=== PATIENT | female | born 1940 | race Caucasian/White ===

== ENCOUNTER 2017-03-31 20:48 | Inpatient (IN) | payer MEDICARE, BC ==
[~2017-03-31] VITALS: Ht 157.5 cm; Wt 65.6 kg
[~2017-03-31 20:48] MED LIST: ACET500T68 PO; ALBU8.5H6 INH; ALPR0.254 PO; APIX5TAB PO; ASCO500T3 PO; AZIT250T6 PO; CETI10TA PO; CHOL4000 PO; CITA40TA12 PO; DILT240C32 PO; ESTR1TAB15 PO; FLUT1DIS5 IH; FURO80TA3 PO; IPRA3AMP IH; LEVO250P IV; LEVO500T59 PO; LEVO75TA5 PO; MECL25TA3 PO; METH40VI IVP; MONT10TA6 PO; ONDA4TAB10 PO; PANT40TA5 PO; POTA20TA12 PO; PRED-220 PO; PROM118S2 PO; ceFAZolin 1GM IVPB FOR OMNI 1 GM/50 ML BAG IV ONE
[2017-03-31] MEDS ORDERED: IPRATRPIUM/ALBUTEROL 0.5/2.5MG 3 ML NEBU. NEB ONE (22:00)
[2017-03-31] MEDS ORDERED: IV NORMAL SALINE 1000ML BAG 1,000 ML IV SCH (22:22)
[2017-03-31] MEDS ORDERED: NEOMY/BACITR/POLYMYXIN OINT PACKET. TP ONE (23:16)
--- NOTE | 2017-03-31 23:17 | PHYS DOC ---
Past Medical History Past Medical History: Asthma, COPD, Pneumonia, Other Additional Past Medical Histor: sleepapnea,autoimmune deficiency Past Surgical History: Cholecystectomy, , Knee Replacement, Other Additional Past Surgical Histo: sinus,bladder susp,breast reduction,gerd surg, cateract,nose ca remove Adult General Chief Complaint Chief Complaint: KNEE INJURY HPI HPI 76-year-old with a history of asthma and COPD on 2 L home O2 as needed now presents to the emergency department after losing her balance falling and injuring her right knee. Total right knee replacement performed in 2009 by an orthopedic surgeon who no longer lives in [facility]. Patient injured her right knee and is unable to range of motion at since the fall. She had no prodromal symptoms and no recent illness. She simply lost her balance this evening by her description. Previously patient was on eloquent is but that was discontinued 10 months ago and she is not currently on any anticoagulants. No head injury or neck pain and no other complaints Review of Systems Review of Systems Constitutional: Denies fever or chills [] Eyes: Denies change in visual acuity, redness, or eye pain [] HENT: Denies nasal congestion or sore throat [] Respiratory: Denies cough or shortness of breath [] Cardiovascular: No additional information not addressed in HPI [] GI: Denies abdominal pain, nausea, vomiting, bloody stools or diarrhea [] : Denies dysuria or hematuria [] Musculoskeletal: Denies back pain or joint pain [] Integument: Denies rash or skin lesions [] Neurologic: Denies headache, focal weakness or sensory changes [] Endocrine: Denies polyuria or polydipsia [] Current Medications Current Medications Current Medications Medications (Trade) Dose Ordered Sig/Nancy Start Time Stop Time Status Last Admin Dose Admin Albuterol/ Ipratropium (Duoneb) 3 ml 1X ONCE 03/31/17 22:00 03/31/17 22:01 DC 03/31/17 22:43 3 ML Cefazolin Sodium 50 ml @ As Directed STK-MED ONCE 03/31/17 23:19 03/31/17 23:20 DC Dexamethasone Sodium Phosphate (Decadron) 20 mg STK-MED ONCE 03/31/17 23:20 03/31/17 23:21 DC Fentanyl Citrate (Fentanyl 2ml Vial) 100 mcg STK-MED ONCE 03/31/17 23:20 03/31/17 23:21 DC Lidocaine HCl (Lidocaine Pf 2% Vial) 5 ml STK-MED ONCE 03/31/17 23:20 03/31/17 23:21 DC Neomycin/ Polymyxin/ Bacitracin (Triple Antibiotic Ointment) 1 pkt STK-MED ONCE 03/31/17 23:16 03/31/17 23:17 DC Ondansetron HCl (Zofran) 4 mg STK-MED ONCE 03/31/17 23:20 03/31/17 23:21 DC Propofol 20 ml @ As Directed STK-MED ONCE 03/31/17 23:20 03/31/17 23:21 DC Sevoflurane (Ultane) 15 ml STK-MED ONCE 03/31/17 23:20 03/31/17 23:21 DC Sodium Chloride 1,000 ml @ 100 mls/hr Q10H 03/31/17 22:22 04/01/17 08:21 03/31/17 22:55 100 MLS/HR Allergies Allergies Allergies Coded Allergies Type Severity Reaction Last Updated Verified Tetracyclines Allergy Intermediate Hives 01/24/15 Yes adhesive Allergy Intermediate Rash 01/24/15 Yes cefotaxime Allergy Intermediate Hives 01/24/15 Yes clindamycin Allergy Intermediate Hives 01/24/15 Yes vancomycin Allergy Intermediate Hives 01/23/15 Yes Physical Exam Physical Exam Constitutional: Well developed, well nourished, no acute distress, non-toxic appearance. [] HENT: Normocephalic, atraumatic, bilateral external ears normal, oropharynx moist, no oral exudates, nose normal. [] Eyes: PERRLA, EOMI, conjunctiva normal, no discharge. [] Neck: Normal range of motion, no tenderness, supple, no stridor. [] Cardiovascular:Heart rate regular rhythm, no murmur [] Lungs & Thorax: Bilateral breath sounds clear to auscultation [] Abdomen: Bowel sounds normal, soft, no tenderness, no masses, no pulsatile masses. [] Skin: Warm, dry, no erythema, no rash. [] Back: No tenderness, no CVA tenderness. [] Extremities: Right lower extremity with significant soft tissue swelling at the knee with bony tenderness. Soft compartments of the thigh and lower extremity. Patient unable to range of motion knee secondary to pain. Comfortable at rest. Neurovascularly intact distally. Extremities otherwise with No tenderness, no cyanosis, no clubbing, ROM intact, no edema. [] Neurologic: Alert and oriented X 3, normal motor function, normal sensory function, no focal deficits noted. [] Psychologic: Affect normal, judgement normal, mood normal. [] Current Patient Data Vital Signs Vital Signs Date Time Temp Pulse Resp B/P (MAP) Pulse Ox O2 Delivery O2 Flow Rate FiO2 03/31/17 21:20 Nasal Cannula 1.0 03/31/17 20:48 98.0 26 137/64 (88) 89 98.0 EKG EKG [] Radiology/Procedures Radiology/Procedures Right knee x-ray interpreted by me. Comminuted displaced periprosthetic distal femur fracture. Chest x-ray chronic changes no acute disease interpreted by me. [] Course & Med Decision Making Course & Med Decision Making Pertinent Labs and Imaging studies reviewed. (See chart for details) Signs and symptoms consistent with right knee fracture confirmed by x-ray with comminuted displaced periprosthetic fracture of the distal femur. Patient neurovascularly intact with soft compartments. She is comfortable at rest. No skin tenting or ecchymosis. Case discussed with Dr. Fernandes orthopedics on-call, he is aware of history and findings and agrees with orthopedic consultation. He will take the patient to the operating room this evening for external fixation. Case discussed with Dr. Flores on-call for the hospitalist service. Dr. campos where the history and findings except patient for inpatient admission to a [facility] bed. She is hemodynamically stable and will be kept nothing by mouth with adequate pain control. [] Dragon Disclaimer Dragon Disclaimer This electronic medical record was generated, in whole or in part, using a voice recognition dictation system. Departure Departure Impression: Primary Impression: Closed fracture of right proximal humerus Disposition: ADMITTED INPATIENT Admitting Physician: Darling Rodriguez Condition: STABLE Referrals: STEPHEN FLORES MD (PCP) ARYAN RODRIGUEZ MD Mar 31, 2017 23:17
[2017-03-31] MEDS ORDERED: SEVOFLURANE 16 TO 30 MINUTES. IH ONE (23:20)
[2017-03-31] MEDS ORDERED: ONDANSETRON PF 4 MG/2 ML VIAL. ONE (23:20)
[2017-03-31] MEDS ORDERED: LIDOCAINE 2% PF Vial for OR 5 ML VIAL. ONE (23:20)
[2017-03-31] MEDS ORDERED: DEXAMETHASONE SOD PHOS 20 MG/5 ML VIAL. ONE (23:20)
[2017-03-31] MEDS ORDERED: fentaNYL PF VIAL 100 MCG/2 ML VIAL ONE (23:20)
[2017-03-31] MEDS ORDERED: PROPOFOL 20 ML IV ONE (23:20)
[2017-03-31] MEDS ORDERED: 0.9 % SOD CHL for STERILE FIELD 10 ML DISP.SYRIN. ONE (23:34)
[2017-03-31 23:45] LABS: INR 1.2 (0.8-1.1)
[2017-04-01] VITALS (12 sets, daily range): BP systolic 97–124; BP diastolic 39–62
[2017-04-01 00:06] LABS: BASO # 0.1 x10^3/uL (0.0-0.2); BASO % 1 % (0-3); EOS % 22 % (0-3); HEMATOCRIT 31.6 % (36.0-47.0); HEMOGLOBIN 10.4 g/dL (12.0-15.5); LYMPH # 1.4 x10^3/uL (1.0-4.8); LYMPH % 9 % (24-48); MEAN CORPUSCULAR HEMOGLOBIN 29 pg (25-35); MEAN CORPUSCULAR HGB CONC 33 g/dL (31-37); MEAN CORPUSCULAR VOLUME 90 fL (79-100); MONO % 9 % (0-9); NEUT % 59 % (31-73); PLATELET COUNT 111 x10^3/uL (140-400); RED BLOOD COUNT 3.53 x10^6/uL (3.50-5.40); RED CELL DISTRIBUTION WIDTH 14.5 % (11.5-14.5); WHITE BLOOD COUNT 15.5 x10^3/uL (4.0-11.0)
[2017-04-01 00:19] LABS: CALCIUM 7.8 mg/dL (8.5-10.1); CREATININE 1.7 mg/dL (0.6-1.0); GFR 29.3; POTASSIUM 3.8 mmol/L (3.5-5.1)
[2017-04-01] MEDS ORDERED: LIDOCAINE 1% 20 ML VIAL. ONE (00:21)
[2017-04-01] MEDS ORDERED: BUPIVACAINE 0.5% 50 ML VIAL. ONE (00:21)
--- NOTE | 2017-04-01 00:32 | PDOC2 ---
CONSULT Date of Consult Date of Consult DATE: 04/01/17 TIME: 00:26 Reason for Consult Reason for Consult: R distal femur fx Referring Physician Referring Physician: Maximino Identification/Chief Complaint Chief Complaint R knee pain Problems: Source Source: Patient History of Present Illness Reason for Visit: Was arising from a seated position this evening and her leg gave out. No preceding symptoms. Pain at right knee, worse with movement, radiates proximally and distally. Denies pain elsewhere. Knee had been doing well until this event. Past Medical History Cardiovascular: No pertinent hx Pulmonary: COPD GI: GERD Heme/Onc: No pertinent hx Psych: Depression ENT: Sincusitis Endocrine: Hypothyroidism Past Surgical History Past Surgical History breast reduction ,sinus surgery Past Surgical History: Cataract Removal, Total knee replacement Family History Family History: Hypertension Social History No ALCOHOL: none Drugs: None Current Problem List Problem List Problems Medical Problems: (1) Closed fracture of right proximal humerus Status: Acute Current Medications Current Medications Current Medications Albuterol/ Ipratropium (Duoneb) 3 ml 1X ONCE NEB Last administered on 22:43; Start 03/31/17 at 22:00; Stop 03/31/17 at 22:01; Status DC Sodium Chloride 1,000 ml @ 100 mls/hr Q10H IV Last administered on 03/31/17 22 :55; Start 03/31/17 at 22:22; Stop 03/31/17 at 23:30; Status DC Neomycin/ Polymyxin/ Bacitracin (Triple Antibiotic Ointment) 1 pkt STK-MED ONCE TP ; Start 03/31/17 at 23:16; Stop 03/31/17 at 23:17; Status DC Cefazolin Sodium 50 ml @ As Directed STK-MED ONCE IV ; Start 03/31/17 at 23:19; Stop 03/31/17 at 23:20; Status DC Dexamethasone Sodium Phosphate (Decadron) 20 mg STK-MED ONCE .ROUTE ; Start 03/31 at 23:20; Stop 03/31/17 at 23:21; Status DC Ondansetron HCl (Zofran) 4 mg STK-MED ONCE .ROUTE ; Start 03/31/17 at 23:20; Stop 03/31/17 at 23:21; Status DC Propofol 20 ml @ As Directed STK-MED ONCE IV ; Start 03/31/17 at 23:20; Stop 03/31 at 23:21; Status DC Lidocaine HCl (Lidocaine Pf 2% Vial) 5 ml STK-MED ONCE .ROUTE ; Start 03/31/17 at 23:20; Stop 03/31/17 at 23:21; Status DC Fentanyl Citrate (Fentanyl 2ml Vial) 100 mcg STK-MED ONCE .ROUTE ; Start at 23:20; Stop 03/31/17 at 23:21; Status DC Sevoflurane (Ultane) 15 ml STK-MED ONCE IH ; Start 03/31/17 at 23:20; Stop at 23:21; Status DC Sodium Chloride (NORMAL SALINE FLUSH for STERILE FIELD) 10 ml STK-MED ONCE .ROUTE ; Start 03/31/17 at 23:34; Stop 03/31/17 at 23:35; Status DC Bupivacaine HCl (Marcaine 0.5%) 50 ml STK-MED ONCE .ROUTE ; Start 04/01/17 at 00: 21; Stop 04/01/17 at 00:22; Status DC Lidocaine HCl 20 ml STK-MED ONCE .ROUTE ; Start 04/01/17 at 00:21; Stop 04/01/17 at 00:22; Status DC Active Scripts Active Levaquin (Levofloxacin) 500 Mg Tablet 1 Tab PO DAILY Reported Prednisone 10 Mg Tablet 10 Mg PO DAILY 04/22/15 start 40 mg x 4 days 04/26/15 start 30 mg x 4 days 04/30/15 start 20 mg x 4 days 05/04/15 start 10 mg x 4 days 05/08/15 start 5 mg x 4 days Last Dose 05/11/15 then stop Promethazine-Codeine Syrup (Promethazine Hcl/Codeine) 118 Ml Syrup 5 Ml PO Q4- 6HRS Furosemide 80 Mg Tablet 1 Tab PO DAILY Zofran Odt (Ondansetron) 4 Mg Tab.rapdis 4 Mg PO BID PRN Meclizine Hcl 25 Mg Tablet 1 Tab PO PRN TID Albuterol Sulfate Hfa Inhaler (Albuterol Sulfate) 8.5 Gm Hfa.aer.ad 2 Puff INH Q4HRS PRN Potassium Chloride 20 Meq Tab.er.prt 1 Tab PO BID All Day Allergy Relief (Cetirizine Hcl) 10 Mg Tablet 10 Mg PO QHS Promethazine-Codeine Syrup (Promethazine Hcl/Codeine) 118 Ml Syrup 5 Ml PO Q4HRS Pantoprazole Sodium 40 Mg Tablet.dr 40 Mg PO BIDAC Singulair Tablet (Montelukast Sodium) 10 Mg Tablet 10 Mg PO HS Levothyroxine Sodium 75 Mcg Tablet 1 Tab PO DAILY Iprat-Albut 0.5-3(2.5) Mg/3 Ml (Ipratropium/Albuterol Sulfate) 3 Ml Ampul.neb 3 Ml IH QID Advair 500-50 Diskus (Fluticasone/Salmeterol) 1 Each Disk.w.dev 1 Puff IH BID Estradiol 1 Mg Tablet 1 Tab PO DAILY Diltiazem 24HR Cd (Diltiazem Hcl) 240 Mg Cap.er.24h 240 Mg PO DAILY Vitamin D3 (Cholecalciferol (Vitamin D3)) 4,000 Unit Capsule 4,000 Unit PO DAILY Ascorbic Acid 500 Mg Tablet 500 Mg PO DAILY Eliquis (Apixaban) 5 Mg Tablet 5 Mg PO BID Alprazolam 0.25 Mg Tablet 0.25 Mg PO PRN TID PRN Acetaminophen 500 Mg Tablet 1 Tab PO Q4HRS Allergies Allergies: Coded Allergies: Tetracyclines (Verified Allergy, Intermediate, Hives, 01/24/15) adhesive (Verified Allergy, Intermediate, Rash, 01/24/15) cefotaxime (Verified Allergy, Intermediate, Hives, 01/24/15) clindamycin (Verified Allergy, Intermediate, Hives, 01/24/15) vancomycin (Verified Allergy, Intermediate, Hives, 01/23/15) ROS General: No: Chills, Night Sweats, Fatigue, Malaise, Appetite, Other PSYCHOLOGICAL ROS: YES: Depression Eyes: No Blurry vision, No Decreased vision, No Double vision, No Dry eyes, No Excessive tearing, No Eye Pain, No Itchy Eyes, No Loss of vision, No Photophobia , No Scotomata, No Uses contacts, No Uses glasses, No Other HEENT: YES: Nasal congestion ALLERGY AND IMMUNOLOGY: No: Hives, Insect Bite Sensitivity, Itchy/Watery Eyes, Nasal Congestion, Post Nasal Drip, Seasonal Allergies, Other Hematological and Lymphatic: No: Bleeding Problems, Blood Clots, Blood Transfusions, Brusing, Night Sweats, Pallor, Swollen Lymph Nodes, Other ENDOCRINE: No: Breast Changes, Galactorrhea, Hair Pattern Changes, Hot Flashes , Malaise/lethargy, Mood Swings, Palpitations, Polydipsia/polyuria, Skin Changes , Temperature Intolerance, Unexpected Weight Changes, Other Respiratory: YES: Cough Cardiovascular: No Chest Pain, No Palpitations, No Orthopnea, No Paroxysmal Noc. Dyspnea, No Edema, No Lt Headedness, No Other Gastrointestinal: No Nausea, No Vomiting, No Abdominal Pain, No Diarrhea, No Constipation, No Melena, No Hematochezia, No Other Musculoskeletal: Yes Joint Pain Physical Exam General: Alert, Oriented X3 HEENT: Atraumatic, EOMI Lungs: Clear to auscultation, Normal air movement Heart: Regular rate Abdomen: Normal bowel sounds, Soft Extremities: No clubbing, No edema Skin: No rashes, No breakdown Neuro: Strength at 5/5 X4 ext, Sensation intact Psych/Mental Status: Mental status NL MUSCULOSKELETAL: Other (gross deformity at right knee, large effusion present. skin intact around knee. able to wiggle toes, toes have good cap refill. SITLT RLE) Vitals VITALS Vital Signs Date Time Temp Pulse Resp B/P (MAP) Pulse Ox O2 Delivery O2 Flow Rate FiO2 03/31/17 23:42 99.0 77 16 115/49 96 Nasal Cannula 2 99.0 Labs Labs Laboratory Tests Test 03/31/17 23:00 03/31/17 23:40 Prothrombin Time 14.0 SEC (11.7-14.0) Prothromb Time International Ratio 1.2 (0.8-1.1) Activated Partial Thromboplast Time 24 SEC (24-38) White Blood Count 15.5 x10^3/uL (4.0-11.0) Red Blood Count 3.53 x10^6/uL (3.50-5.40) Hemoglobin 10.4 g/dL (12.0-15.5) Hematocrit 31.6 % (36.0-47.0) Mean Corpuscular Volume 90 fL (79-100) Mean Corpuscular Hemoglobin 29 pg (25-35) Mean Corpuscular Hemoglobin Concent 33 g/dL (31-37) Red Cell Distribution Width 14.5 % (11.5-14.5) Platelet Count 111 x10^3/uL (140-400) Neutrophils (%) (Auto) 59 % (31-73) Lymphocytes (%) (Auto) 9 % (24-48) Monocytes (%) (Auto) 9 % (0-9) Eosinophils (%) (Auto) 22 % (0-3) Basophils (%) (Auto) 1 % (0-3) Neutrophils # (Auto) 9.1 x10^3uL (1.8-7.7) Lymphocytes # (Auto) 1.4 x10^3/uL (1.0-4.8) Monocytes # (Auto) 1.4 x10^3/uL (0.0-1.1) Eosinophils # (Auto) 3.5 x10^3/uL (0.0-0.7) Basophils # (Auto) 0.1 x10^3/uL (0.0-0.2) Sodium Level 143 mmol/L (136-145) Potassium Level 3.8 mmol/L (3.5-5.1) Chloride Level 106 mmol/L (98-107) Carbon Dioxide Level 28 mmol/L (21-32) Anion Gap 9 (6-14) Blood Urea Nitrogen 21 mg/dL (7-20) Creatinine 1.7 mg/dL (0.6-1.0) Estimated GFR (Cockcroft-Gault) 29.3 Glucose Level 98 mg/dL (70-99) Calcium Level 7.8 mg/dL (8.5-10.1) Laboratory Tests Test 03/31/17 23:00 03/31/17 23:40 Prothrombin Time 14.0 SEC (11.7-14.0) Prothromb Time International Ratio 1.2 (0.8-1.1) Activated Partial Thromboplast Time 24 SEC (24-38) White Blood Count 15.5 x10^3/uL (4.0-11.0) Red Blood Count 3.53 x10^6/uL (3.50-5.40) Hemoglobin 10.4 g/dL (12.0-15.5) Hematocrit 31.6 % (36.0-47.0) Mean Corpuscular Volume 90 fL (79-100) Mean Corpuscular Hemoglobin 29 pg (25-35) Mean Corpuscular Hemoglobin Concent 33 g/dL (31-37) Red Cell Distribution Width 14.5 % (11.5-14.5) Platelet Count 111 x10^3/uL (140-400) Neutrophils (%) (Auto) 59 % (31-73) Lymphocytes (%) (Auto) 9 % (24-48) Monocytes (%) (Auto) 9 % (0-9) Eosinophils (%) (Auto) 22 % (0-3) Basophils (%) (Auto) 1 % (0-3) Neutrophils # (Auto) 9.1 x10^3uL (1.8-7.7) Lymphocytes # (Auto) 1.4 x10^3/uL (1.0-4.8) Monocytes # (Auto) 1.4 x10^3/uL (0.0-1.1) Eosinophils # (Auto) 3.5 x10^3/uL (0.0-0.7) Basophils # (Auto) 0.1 x10^3/uL (0.0-0.2) Sodium Level 143 mmol/L (136-145) Potassium Level 3.8 mmol/L (3.5-5.1) Chloride Level 106 mmol/L (98-107) Carbon Dioxide Level 28 mmol/L (21-32) Anion Gap 9 (6-14) Blood Urea Nitrogen 21 mg/dL (7-20) Creatinine 1.7 mg/dL (0.6-1.0) Estimated GFR (Cockcroft-Gault) 29.3 Glucose Level 98 mg/dL (70-99) Calcium Level 7.8 mg/dL (8.5-10.1) Images Images Xrays interpreted by myself. Castillo and Nephmua TKA in place, comminuted displaced distal femoral periprosthetic fx present Assessment/Plan Assessment/Plan Discussed proceeding with ex-fix for better alignment, help protect soft tissues and likely better comfort. Risks, benefits and alternatives discussed with patient and family. OR CHER Robison II, MD Apr 01, 2017 00:32
[2017-04-01] MEDS ORDERED: ENOXAPARIN 40 MG/0.4 ML SYRINGE. SQ ONE (01:00)
[2017-04-01] MEDS ORDERED: ePHEDrine PF IN SALINE 50 MG/5 ML DISP.SYRIN IV ONE (01:01)
[2017-04-01] MEDS ORDERED: PHENYLEPHRINE 10 MG/ML VIAL. ONE (01:22)
--- NOTE | 2017-04-01 01:31 | PDOC4 ---
Operative Note Operative Note Date of surgery 04/01/2017 Surgeon Joselo Echeverria MD Preoperative diagnosis displaced and comminuted closed right distal femur periprosthetic fracture postoperative diagnosis same Procedure performed closed reduction and placement of uniplanar external fixation Anesthesia: Gen. Blood loss 5 mL's Components inserted: [employer]illo [employer]hew external fixator Complications: None Chirag Wright for procedure Xin is a very pleasant 76-year-old female who had a fall this evening while rising from seated position and suffered the above injury. Please see my consult note for full details. The risks, benefits, and alternatives were discussed with her and she elected to proceed. Description of procedure: The patient was greeted in the preoperative holding area where the correct extremity was marked and verified. She was taken to the operative suite and antibiotics were started once in the OR. After this, she had successful induction of general anesthesia and we secured her to the bed with all pressure points padded. The right lower extremity was prepped and draped in her usual sterile fashion and we conducted our preoperative timeout. I then palpated for the femur well proximal to the knee and made 2 stab incisions using my pin-to-bar connector as a guide. I bluntly dissected down to bone with hemostat and then introduced the soft tissue protector and inserted the threaded pin under fluoroscopic guidance. I then repeated this for the second pin at the site. After this had recommended attention to the distal tibia regular palpated for the central portion of the bone and incised skin in accordance with my pin-to-bar connector and then spread down to bone with a hemostat. I then placed 2 more ex Fix pins under fluoroscopic guidance. I then secured the pin-to-bar connectors of both of these sites 3 finger breaths above the skin. After this I attached the adapters for the bar-to-bar connector and secured these. I then attached 2 bars at both of these sites and secured these. I then placed a bar-to-bar connector were these met over her knee and tightened one side. I then brought in C-arm and pulled traction and some slight flexion and I was happy with the fracture alignment and therefore my district administrative assistant tightened the clamp while I held traction. I then took images again and was happy with the fracture reduction and hardware position. After this the leg was cleansed and dried and sterile dressing and loose Nazario wrap was applied. She tolerated surgery well. No complications. Attending conclusion of the surgery she is awake from anesthesia and transferred gently supine to the recovery room cart and taken to the PACU in stable and x-ray condition. Postop plan is readmitted to the floor of hospitalist service. She will receive DVT and antibiotic prophylaxis. Nonweightbearing right lower extremity. We will obtain a CAT scan to help guide our operative plan. JOSELO ECHEVERRIA II, MD Apr 01, 2017 01:31
[2017-04-01] MEDS ORDERED: fentaNYL PF VIAL 100 MCG/2 ML VIAL ONE (01:36)
[2017-04-01] MEDS: fentaNYL PF VIAL 100 MCG/2 ML VIAL IV PRN ×4 (01:39→02:22)
[2017-04-01] MEDS ORDERED: IV RINGERS,LACTATED 1000ML 1,000 ML IV SCH (01:40)
[2017-04-01] MEDS ORDERED: HYDROmorphone 2 MG/ML VIAL IV PRN (01:45)
[2017-04-01] MEDS ORDERED: LIDOCAINE 1% 1 ML SYRINGE. ID PRN (01:45)
[2017-04-01] MEDS ORDERED: fentaNYL PF VIAL 100 MCG/2 ML VIAL IV PRN ×2 (01:45→09:00)
[2017-04-01] MEDS ORDERED: PROCHLORPERAZINE 10 MG/2 ML VIAL. IV PRN (01:45)
[2017-04-01] MEDS ORDERED: MORPHINE SULFATE 2 MG/ML DISP.SYRIN. IV PRN ×2 (01:45→22:15)
--- NOTE | 2017-04-01 03:22 | ACF ---
Admission Forms Criteria MUSCULOSKELETAL DISEASE GRG Clinical Indications for Admission to Inpatient Care (Place 'X' for any and all applicable criteria): Hospital admission is needed for appropriate care of the patient because of 1 or more of the following: [X]I. Fracture, dislocation, or other musculoskeletal injury requiring inpatient care(medical) as indicated by 1 or more of the following(4)(5)(6)(7) [ ]a) Vertebral fracture requiring observation for instability or neurologic compromise (8) [ ]b) Compartment syndrome (proven or cannot be ruled out during observation level of care) (9) [ ]c) Limb-threatening injury [ ]d) Major injury requiring inpatient stabilization such as traction initiation or external fixation before internal fixation or closure of complex or open fracture [X]e) Major injury requiring inpatient treatment after emergency or observation level care (as appropriate) [ ]f) Severe pain requiring acute inpatient management [ ]g) Injury with suspicion of abuse or neglect (eg., child, dependent elderly) [ ]II. Newly diagnosed or suspected bone, joint, or orthopedic device infection (e.g., osteomyelitis, septic arthritis) needing 1 or more of the following(1)(2)(3) [ ]a) IV antibiotics that cannot be initiated in other than inpatient setting (e.g., patient too unstable or home infusion not available) [ ]b) Device removal or replacement [ ]c) Bone or soft tissue debridement [ ]d) Joint drainage (drain placement or repetitive aspirations) [ ]III. Severe rheumatologic disease (e.g., systemic lupus erythematosus, rheumatoid arthritis) with complications or comorbidities (Also use Optimal Recovery Care Criteria or General Recovery Criteria as appropriate on the basis of predominant condition), including 1 or more of the following( 10)(11)(12)(13) [ ]a) Severe infection (e.g., INSTANT PRINT OPERATOR infection, sepsis) (14) [ ]b) Respiratory complications, including 1 or more of the following : [ ]i) Pleural effusion with respiratory compromise [ ]ii) Pulmonary hypertension with congestive failure [ ]iii) Respiratory failure [ ]iv) Pulmonary hemorrhage (15) [ ]c) Hematologic disease, including 1 or more of the following: [ ]i) Coagulopathy with bleeding [ ]ii) Thrombosis with hypercoagulable state [ ]iii) Thrombotic thrombocytopenic purpura [ ]d) Cerebritis with seizures, psychosis, or other severe abnormalities [ ]e) Vertebral destruction with monitoring needed for cervical myelopathy& possible respiratory compromise [ ]f) Exacerbation that requires inpatient treatment (e.g., intravenous immunosuppression) (16) [ ]g) Acute renal failure [ ]h) Cerebritis with seizures, psychosis, Altered mental status, or other neurologic abnormalities [ ]i) Pericardial effusion with tamponade [ ]j) Vertebral destruction, with monitoring needed for cervical myelopathy and possible respiratory compromise [ ]IV. Severe vasculitis with complications or comorbidities (Also use Optimal Recovery Care Criteria General Recovery Criteria as appropriate on the basis of predominant condition), including 1 or more of the following(11)(12)(17)(18)(19)(20) [ ]a) Exacerbation that requires inpatient treatment (e.g., intravenous immunosuppression) (19)(21) [ ]b) Pulmonary hemorrhage (15) [ ]c) INSTANT PRINT OPERATOR vasculitis with seizures, psychosis, Altered mental status that is severe or persistent, or other severe abnormalities (22) [ ]d) Cerebral infarction [ ]e) Gastrointestinal ischemia [ ]f) Gangrene or threatened amputation [ ]g) Renal failure (16) [ ]h) Other significant complications of vasculitis ( eg., tissue or organ ischemia, organ dysfunction ) [ ]V. Severe myopathy as indicated by 1 or more of the following (28)(29) [ ]a) New onset of airway compromise or inability to swallow [ ]b) Respiratory deterioration with observation needed for impending respiratory failure [ ]c) Exacerbation that requires inpatient treatment (e.g., intravenous immunosuppression) [ ]. Severe crystal gout (arthropathy) indicated by 1 or more of the following (23)(24) [ ]a) Severe pain requiring acute inpatient management [ ]b) Exacerbation that requires inpatient treatment (e.g., intravenous treatment) [ ]VII.Rhabdomyolysis and 1 or more of the following (25)(26)(27) [ ]a) Acute renal failure [ ]b) Need for intravenous hydration after emergency or observation level care (as appropriate) [ ]c) Inability to maintain oral hydration [ ]d) Change in mental status [ ]e) Electrolyte abnormality that remains after emergency or observation level care (as appropriate) [ ]VIII Post amputation complication, as indicated by ANY ONE of the following [ ]a) Infection [ ]b) Dehiscence [ ]c) Myodesis failure [ ]IX. Severe pain requiring acute inpatient management due to musculoskeletal condition [ ]X. Musculoskeletal Disease and ALL of the following: [ ]a) Symptom or finding for which emergency and observation care have failed or are not considered appropriate (Use General Criteria: Observation Care as appropriate) [ ]b) Presence of ANY ONE of the following [ ]i) A General Admission Criteria [ ]ii) A Pediatric General Admission Criteria The original [facility] [employer] content created by [facility] has been revised. The portions of the content which have been revised are identified through the use of italic text or in bold, and [facility] has neither reviewed nor approved the modified material. All other unmodified content is copyright [facility]. Please see references footnoted in the original [facility] edition 2016 Admission Criteria Met?: Yes GRACIA MONTELONGO Apr 01, 2017 03:22
[2017-04-01 03:37] LABS: % EOS 12 % (0-5); PLT ESTIMATE DECREASED (ADEQUATE)
[2017-04-01] MEDS: HYDROcodone/APAP 5/325MG 1 TAB TABLET PO PRN ×3 (04:14→13:29)
--- NOTE | 2017-04-01 06:17 | EKG ---
[facility] [address] [place] [address] Test Date: 2017-03-31 Test Time: 23:16:43 Pat Name: CLEVELAND REAL Department: Room: Gender: F Account Executive Key Accounts: : 1940 Requested By: ARYAN RODRIGUEZ Order Number: [id number] Reading MD: Measurements Intervals [place] Rate: 78 P: 0 TX: 170 QRS: -17 QRSD: 76 T: 27 QT: 398 QTc: 457 Interpretive Statements SINUS RHYTHM ATRIAL PREMATURE COMPLEX(ES) LEFTWARD AXIS LOW LIMB LEAD VOLTAGE RI6.01 Unconfirmed report No previous ECG available for comparison
--- NOTE | 2017-04-01 08:26 | RAD ---
Portable chest, 03/31/2017: History: Cough Comparison is made to a study from 07/25/2015. A right Port-A-Cath remains in place extending into the superior vena cava. The heart size and pulmonary vascularity are normal. There is mild left parahilar opacity the right lung is clear. There is no evidence of pleural fluid. There is a moderate thoracolumbar scoliosis with associated degenerative change. IMPRESSION: Mild left parahilar opacities compatible with atelectasis and/or pneumonitis. Radiographic follow-up is suggested to exclude an underlying neoplasm.
--- NOTE | 2017-04-01 08:45 | RAD ---
Right knee, 2 views, 03/31/2017: History: Fall, knee pain Comparison is made to a study from 06/10/2009. A total knee prosthesis is in place. There is a new comminuted fracture of the distal femur along the superior margin of the femoral component of the knee prosthesis. There is considerable posterior and moderate medial displacement and angulation of the distal fracture fragments. The proximal tibia and fibula appear intact. There is extensive associated soft tissue swelling. IMPRESSION: Comminuted, displaced and angulated fracture of the distal right femur along the superior margin of the femoral component of the right knee prosthesis.
--- NOTE | 2017-04-01 10:07 | RAD ---
CT of the right knee, 04/01/2017: History: Acute fracture Multidetector CT imaging was performed without contrast. A total knee prosthesis is in place. There is an external fixation device also in place with 2 pins extending into the mid to distal femoral shaft. The distal aspect of this fixation device is only visible on the software engineer intern image with a pin extending into the proximal tibia. Artifacts arising from the fixation device and the knee prosthesis degrade image quality. There is a comminuted fracture of the distal right femur at the level of the superior aspect of the femoral component of the knee prosthesis. Compared to yesterday's radiographs, there is moderate residual posterior displacement of the distal fracture fragments as best seen on the sagittal images. The anterior lip of the prosthesis is embedded into the medullary canal of the distal femoral stump Previously seen medial displacement and angulation have been reduced. The proximal tibia and fibula are intact. There is mild streaky subcutaneous edema. Scattered arterial calcifications are present. IMPRESSION: Improved alignment at the site of the distal femoral fracture, although there is moderate residual posterior displacement of the distal fracture fragments as described above. PQRS Compliance Statement: One or more of the following individualized dose reduction techniques were utilized for this examination: 1. Automated exposure control 2. Adjustment of the mA and/or kV according to patient size 3. Use of iterative reconstruction technique
[2017-04-01] MEDS: oxyCODONE/APAP 5/325 1 TAB TABLET PO PRN ×2 (11:32→20:29)
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
[2017-04-01] MEDS: IV NORMAL SALINE 1000ML BAG 1,000 ML IV SCH ×2 (13:30→22:15)
[2017-04-01] MEDS: ENOXAPARIN 40 MG/0.4 ML SYRINGE. SQ SCH (13:30)
[2017-04-01] MEDS: SENNOSIDES/DOCUSATE 8.6/50MG TABLET. PO PRN (20:29)
--- NOTE | 2017-04-01 20:34 | PDOC ---
ORTHO PROGRESS NOTES Subjective Pain is a little bit better today. No new complaints Vitals Vital Signs Date Time Temp Pulse Resp B/P (MAP) Pulse Ox O2 Delivery O2 Flow Rate FiO2 04/01/17 20:30 20 94 Nasal Cannula 2.0 04/01/17 19:00 98.3 79 118/46 (70) 98.3 Labs Laboratory Tests Test 03/31/17 23:00 03/31/17 23:40 Prothrombin Time 14.0 SEC (11.7-14.0) Prothromb Time International Ratio 1.2 (0.8-1.1) Activated Partial Thromboplast Time 24 SEC (24-38) White Blood Count 15.5 x10^3/uL (4.0-11.0) Red Blood Count 3.53 x10^6/uL (3.50-5.40) Hemoglobin 10.4 g/dL (12.0-15.5) Hematocrit 31.6 % (36.0-47.0) Mean Corpuscular Volume 90 fL (79-100) Mean Corpuscular Hemoglobin 29 pg (25-35) Mean Corpuscular Hemoglobin Concent 33 g/dL (31-37) Red Cell Distribution Width 14.5 % (11.5-14.5) Platelet Count 111 x10^3/uL (140-400) Neutrophils (%) (Auto) 59 % (31-73) Lymphocytes (%) (Auto) 9 % (24-48) Monocytes (%) (Auto) 9 % (0-9) Eosinophils (%) (Auto) 22 % (0-3) Basophils (%) (Auto) 1 % (0-3) Neutrophils # (Auto) 9.1 x10^3uL (1.8-7.7) Lymphocytes # (Auto) 1.4 x10^3/uL (1.0-4.8) Monocytes # (Auto) 1.4 x10^3/uL (0.0-1.1) Eosinophils # (Auto) 3.5 x10^3/uL (0.0-0.7) Basophils # (Auto) 0.1 x10^3/uL (0.0-0.2) Segmented Neutrophils % 67 % (35-66) Band Neutrophils % 1 % (0-9) Lymphocytes % 14 % (24-48) Monocytes % 6 % (0-10) Eosinophils % 12 % (0-5) Platelet Estimate Decreased (ADEQUATE) Giant Platelets Occ Sodium Level 143 mmol/L (136-145) Potassium Level 3.8 mmol/L (3.5-5.1) Chloride Level 106 mmol/L (98-107) Carbon Dioxide Level 28 mmol/L (21-32) Anion Gap 9 (6-14) Blood Urea Nitrogen 21 mg/dL (7-20) Creatinine 1.7 mg/dL (0.6-1.0) Estimated GFR (Cockcroft-Gault) 29.3 Glucose Level 98 mg/dL (70-99) Calcium Level 7.8 mg/dL (8.5-10.1) Laboratory Tests Test 03/31/17 23:00 03/31/17 23:40 Prothrombin Time 14.0 SEC (11.7-14.0) Prothromb Time International Ratio 1.2 (0.8-1.1) Activated Partial Thromboplast Time 24 SEC (24-38) White Blood Count 15.5 x10^3/uL (4.0-11.0) Red Blood Count 3.53 x10^6/uL (3.50-5.40) Hemoglobin 10.4 g/dL (12.0-15.5) Hematocrit 31.6 % (36.0-47.0) Mean Corpuscular Volume 90 fL (79-100) Mean Corpuscular Hemoglobin 29 pg (25-35) Mean Corpuscular Hemoglobin Concent 33 g/dL (31-37) Red Cell Distribution Width 14.5 % (11.5-14.5) Platelet Count 111 x10^3/uL (140-400) Neutrophils (%) (Auto) 59 % (31-73) Lymphocytes (%) (Auto) 9 % (24-48) Monocytes (%) (Auto) 9 % (0-9) Eosinophils (%) (Auto) 22 % (0-3) Basophils (%) (Auto) 1 % (0-3) Neutrophils # (Auto) 9.1 x10^3uL (1.8-7.7) Lymphocytes # (Auto) 1.4 x10^3/uL (1.0-4.8) Monocytes # (Auto) 1.4 x10^3/uL (0.0-1.1) Eosinophils # (Auto) 3.5 x10^3/uL (0.0-0.7) Basophils # (Auto) 0.1 x10^3/uL (0.0-0.2) Segmented Neutrophils % 67 % (35-66) Band Neutrophils % 1 % (0-9) Lymphocytes % 14 % (24-48) Monocytes % 6 % (0-10) Eosinophils % 12 % (0-5) Platelet Estimate Decreased (ADEQUATE) Giant Platelets Occ Sodium Level 143 mmol/L (136-145) Potassium Level 3.8 mmol/L (3.5-5.1) Chloride Level 106 mmol/L (98-107) Carbon Dioxide Level 28 mmol/L (21-32) Anion Gap 9 (6-14) Blood Urea Nitrogen 21 mg/dL (7-20) Creatinine 1.7 mg/dL (0.6-1.0) Estimated GFR (Cockcroft-Gault) 29.3 Glucose Level 98 mg/dL (70-99) Calcium Level 7.8 mg/dL (8.5-10.1) Notes She is awake and alert and sitting in bed. The pin sites at the ex fix are clean and dry. She can wiggle her toes. Assessment and Plan Postop day 1 right knee spanning ex-fix for comminuted distal femoral periprosthetic fracture. She will I think benefit from a distal femoral reconstruction which is not a surgery that anyone is able to offer her here. I did speak with the surgeon at another hospital and he agreed to accept her. Plans a been made for transfer to [facility] Tuesday. CHER ECHEVERRIA II, MD Apr 01, 2017 20:34
[2017-04-01] MEDS: IBUPROFEN 400 MG TABLET. PO SCH (22:14)
[2017-04-02] VITALS (7 sets, daily range): BP systolic 119–156; BP diastolic 53–76
[2017-04-02] MEDS: IBUPROFEN 400 MG TABLET. PO SCH ×4 (05:26→15:18)
[2017-04-02] MEDS: oxyCODONE/APAP 5/325 1 TAB TABLET PO PRN ×2 (05:26→16:45)
[2017-04-02 06:37] LABS: BASO % 0 % (0-3); EOS % 0 % (0-3); HEMATOCRIT 23.9 % (36.0-47.0); HEMOGLOBIN 8.1 g/dL (12.0-15.5); LYMPH # 0.6 x10^3/uL (1.0-4.8); LYMPH % 6 % (24-48); MEAN CORPUSCULAR HEMOGLOBIN 30 pg (25-35); MEAN CORPUSCULAR HGB CONC 34 g/dL (31-37); MEAN CORPUSCULAR VOLUME 87 fL (79-100); MONO % 11 % (0-9); NEUT % 83 % (31-73); PLATELET COUNT 119 x10^3/uL (140-400); RED BLOOD COUNT 2.73 x10^6/uL (3.50-5.40); RED CELL DISTRIBUTION WIDTH 13.9 % (11.5-14.5); WHITE BLOOD COUNT 9.4 x10^3/uL (4.0-11.0)
[2017-04-02 06:51] LABS: CALCIUM 7.9 mg/dL (8.5-10.1); CREATININE 1.4 mg/dL (0.6-1.0); GFR 36.7; POTASSIUM 4.7 mmol/L (3.5-5.1)
[2017-04-02] MEDS ORDERED: LIDO700A39 TP (10:16)
[2017-04-02] MEDS: ENOXAPARIN 40 MG/0.4 ML SYRINGE. SQ SCH (12:01)
[2017-04-02] MEDS: IV NORMAL SALINE 1000ML BAG 1,000 ML IV SCH ×2 (12:02→20:44)
--- NOTE | 2017-04-02 12:14 | PDOC ---
PROGRESS NOTES Chief Complaint Chief Complaint 1.R distal femur fracture, closed 2. COPD 3. GERD 4. Hypothyroidism 5. Depression 6. Chronic sinusitis History of Present Illness History of Present Illness pt is doing well this morning, her surgery went well yesterday and there are now external pins on her R leg, she states her pain is well controlled and denies any complaints Vitals Vitals Vital Signs Date Time Temp Pulse Resp B/P (MAP) Pulse Ox O2 Delivery O2 Flow Rate FiO2 04/02/17 10:59 98.4 78 16 130/60 (83) 96 Room Air 98.4 04/02/17 08:00 2.0 Physical Exam General: Alert, Oriented X3, Cooperative, No acute distress Heart: Regular rate Lungs: Clear Abdomen: Normal bowel sounds, Soft, No tenderness, No hepatosplenomegaly, No masses Extremities: No clubbing, No cyanosis, Other (dressing/cast RLE) Skin: No rashes, No breakdown, No significant lesion Labs LABS Laboratory Tests Test 04/02/17 05:30 White Blood Count 9.4 x10^3/uL (4.0-11.0) Red Blood Count 2.73 x10^6/uL (3.50-5.40) Hemoglobin 8.1 g/dL (12.0-15.5) Hematocrit 23.9 % (36.0-47.0) Mean Corpuscular Volume 87 fL (79-100) Mean Corpuscular Hemoglobin 30 pg (25-35) Mean Corpuscular Hemoglobin Concent 34 g/dL (31-37) Red Cell Distribution Width 13.9 % (11.5-14.5) Platelet Count 119 x10^3/uL (140-400) Neutrophils (%) (Auto) 83 % (31-73) Lymphocytes (%) (Auto) 6 % (24-48) Monocytes (%) (Auto) 11 % (0-9) Eosinophils (%) (Auto) 0 % (0-3) Basophils (%) (Auto) 0 % (0-3) Neutrophils # (Auto) 7.8 x10^3uL (1.8-7.7) Lymphocytes # (Auto) 0.6 x10^3/uL (1.0-4.8) Monocytes # (Auto) 1.0 x10^3/uL (0.0-1.1) Eosinophils # (Auto) 0.0 x10^3/uL (0.0-0.7) Basophils # (Auto) 0.0 x10^3/uL (0.0-0.2) Sodium Level 143 mmol/L (136-145) Potassium Level 4.7 mmol/L (3.5-5.1) Chloride Level 109 mmol/L (98-107) Carbon Dioxide Level 29 mmol/L (21-32) Anion Gap 5 (6-14) Blood Urea Nitrogen 26 mg/dL (7-20) Creatinine 1.4 mg/dL (0.6-1.0) Estimated GFR (Cockcroft-Gault) 36.7 Glucose Level 130 mg/dL (70-99) Calcium Level 7.9 mg/dL (8.5-10.1) Review of Systems Review of Systems denies nausea, vomiting, or LYNCH Assessment and Plan Assessmemt and Plan Assessment 1.R distal femur fracture, closed 2. COPD 3. GERD 4. Hypothyroidism 5. Depression 6. Chronic sinusitis Plan 1. S/p ex-fix for comminuted distal femoral periprosthetic fracture 2. Transfer to [facility] tuesday for distal femoral reconstruction 3. Lovenox for DVT prophylaxis 4. Appreciate subspecialty input 5. Continue home meds 6. Discussed plan of care with nursing 7. PT/OT 8. Recheck CBC and BMP tomorrow 9. Reviewed imagin. Zofran prn for nausea 11. Continue pain management with morphine, percocet, and lortab Problems: Comment Review of Relevant I have reviewed the following items will (where applicable) has been applied. Labs Laboratory Tests Test 03/31/17 23:00 03/31/17 23:40 04/01/17 10:00 04/02/17 05:30 Prothrombin Time 14.0 SEC (11.7-14.0) Prothromb Time International Ratio 1.2 (0.8-1.1) Activated Partial Thromboplast Time 24 SEC (24-38) White Blood Count 15.5 x10^3/uL (4.0-11.0) 9.4 x10^3/uL (4.0-11.0) Red Blood Count 3.53 x10^6/uL (3.50-5.40) 2.73 x10^6/uL (3.50-5.40) Hemoglobin 10.4 g/dL (12.0-15.5) 8.1 g/dL (12.0-15.5) Hematocrit 31.6 % (36.0-47.0) 23.9 % (36.0-47.0) Mean Corpuscular Volume 90 fL (79-100) 87 fL (79-100) Mean Corpuscular Hemoglobin 29 pg (25-35) 30 pg (25-35) Mean Corpuscular Hemoglobin Concent 33 g/dL (31-37) 34 g/dL (31-37) Red Cell Distribution Width 14.5 % (11.5-14.5) 13.9 % (11.5-14.5) Platelet Count 111 x10^3/uL (140-400) 119 x10^3/uL (140-400) Neutrophils (%) (Auto) 59 % (31-73) 83 % (31-73) Lymphocytes (%) (Auto) 9 % (24-48) 6 % (24-48) Monocytes (%) (Auto) 9 % (0-9) 11 % (0-9) Eosinophils (%) (Auto) 22 % (0-3) 0 % (0-3) Basophils (%) (Auto) 1 % (0-3) 0 % (0-3) Neutrophils # (Auto) 9.1 x10^3uL (1.8-7.7) 7.8 x10^3uL (1.8-7.7) Lymphocytes # (Auto) 1.4 x10^3/uL (1.0-4.8) 0.6 x10^3/uL (1.0-4.8) Monocytes # (Auto) 1.4 x10^3/uL (0.0-1.1) 1.0 x10^3/uL (0.0-1.1) Eosinophils # (Auto) 3.5 x10^3/uL (0.0-0.7) 0.0 x10^3/uL (0.0-0.7) Basophils # (Auto) 0.1 x10^3/uL (0.0-0.2) 0.0 x10^3/uL (0.0-0.2) Segmented Neutrophils % 67 % (35-66) Band Neutrophils % 1 % (0-9) Lymphocytes % 14 % (24-48) Monocytes % 6 % (0-10) Eosinophils % 12 % (0-5) Platelet Estimate Decreased (ADEQUATE) Giant Platelets Occ Sodium Level 143 mmol/L (136-145) 143 mmol/L (136-145) Potassium Level 3.8 mmol/L (3.5-5.1) 4.7 mmol/L (3.5-5.1) Chloride Level 106 mmol/L (98-107) 109 mmol/L (98-107) Carbon Dioxide Level 28 mmol/L (21-32) 29 mmol/L (21-32) Anion Gap 9 (6-14) 5 (6-14) Blood Urea Nitrogen 21 mg/dL (7-20) 26 mg/dL (7-20) Creatinine 1.7 mg/dL (0.6-1.0) 1.4 mg/dL (0.6-1.0) Estimated GFR (Cockcroft-Gault) 29.3 36.7 Glucose Level 98 mg/dL (70-99) 130 mg/dL (70-99) Calcium Level 7.8 mg/dL (8.5-10.1) 7.9 mg/dL (8.5-10.1) 25-Hydroxy Vitamin D Total 52.1 ng/mL (30.0-100.0) Laboratory Tests Test 04/02/17 05:30 White Blood Count 9.4 x10^3/uL (4.0-11.0) Red Blood Count 2.73 x10^6/uL (3.50-5.40) Hemoglobin 8.1 g/dL (12.0-15.5) Hematocrit 23.9 % (36.0-47.0) Mean Corpuscular Volume 87 fL (79-100) Mean Corpuscular Hemoglobin 30 pg (25-35) Mean Corpuscular Hemoglobin Concent 34 g/dL (31-37) Red Cell Distribution Width 13.9 % (11.5-14.5) Platelet Count 119 x10^3/uL (140-400) Neutrophils (%) (Auto) 83 % (31-73) Lymphocytes (%) (Auto) 6 % (24-48) Monocytes (%) (Auto) 11 % (0-9) Eosinophils (%) (Auto) 0 % (0-3) Basophils (%) (Auto) 0 % (0-3) Neutrophils # (Auto) 7.8 x10^3uL (1.8-7.7) Lymphocytes # (Auto) 0.6 x10^3/uL (1.0-4.8) Monocytes # (Auto) 1.0 x10^3/uL (0.0-1.1) Eosinophils # (Auto) 0.0 x10^3/uL (0.0-0.7) Basophils # (Auto) 0.0 x10^3/uL (0.0-0.2) Sodium Level 143 mmol/L (136-145) Potassium Level 4.7 mmol/L (3.5-5.1) Chloride Level 109 mmol/L (98-107) Carbon Dioxide Level 29 mmol/L (21-32) Anion Gap 5 (6-14) Blood Urea Nitrogen 26 mg/dL (7-20) Creatinine 1.4 mg/dL (0.6-1.0) Estimated GFR (Cockcroft-Gault) 36.7 Glucose Level 130 mg/dL (70-99) Calcium Level 7.9 mg/dL (8.5-10.1) Medications Current Medications Albuterol/ Ipratropium (Duoneb) 3 ml 1X ONCE NEB Last administered on 22:43; Start 03/31/17 at 22:00; Stop 03/31/17 at 22:01; Status DC Sodium Chloride 1,000 ml @ 100 mls/hr Q10H IV Last administered on 03/31/17 22 :55; Start 03/31/17 at 22:22; Stop 04/01/17 at 08:21; Status DC Neomycin/ Polymyxin/ Bacitracin (Triple Antibiotic Ointment) 1 pkt STK-MED ONCE TP ; Start 03/31/17 at 23:16; Stop 03/31/17 at 23:17; Status DC Cefazolin Sodium 50 ml @ As Directed STK-MED ONCE IV ; Start 03/31/17 at 23:19; Stop 03/31/17 at 23:20; Status Cancel Dexamethasone Sodium Phosphate (Decadron) 20 mg STK-MED ONCE .ROUTE ; Start 03/31 at 23:20; Stop 03/31/17 at 23:21; Status DC Ondansetron HCl (Zofran) 4 mg STK-MED ONCE .ROUTE ; Start 03/31/17 at 23:20; Stop 03/31/17 at 23:21; Status DC Propofol 20 ml @ As Directed STK-MED ONCE IV ; Start 03/31/17 at 23:20; Stop 03/31 at 23:21; Status DC Lidocaine HCl (Lidocaine Pf 2% Vial) 5 ml STK-MED ONCE .ROUTE ; Start 03/31/17 at 23:20; Stop 03/31/17 at 23:21; Status DC Fentanyl Citrate (Fentanyl 2ml Vial) 100 mcg STK-MED ONCE .ROUTE ; Start at 23:20; Stop 03/31/17 at 23:21; Status DC Sevoflurane (Ultane) 15 ml STK-MED ONCE IH ; Start 03/31/17 at 23:20; Stop at 23:21; Status DC Sodium Chloride (NORMAL SALINE FLUSH for STERILE FIELD) 10 ml STK-MED ONCE .ROUTE ; Start 03/31/17 at 23:34; Stop 03/31/17 at 23:35; Status DC Bupivacaine HCl (Marcaine 0.5%) 50 ml STK-MED ONCE .ROUTE ; Start 04/01/17 at 00: 21; Stop 04/01/17 at 00:22; Status DC Lidocaine HCl 20 ml STK-MED ONCE .ROUTE ; Start 04/01/17 at 00:21; Stop 04/01/17 at 00:22; Status DC Cefazolin Sodium 1 gm/Sodium Chloride 50 ml @ 100 mls/hr Q8H IV ; Start at 00:45; Stop 04/02/17 at 09:14; Status UNV Acetaminophen/ Hydrocodone Bitart (Lortab 5/325) 1 tab PRN Q4HRS PRN PO MODERATE PAIN Last administered on 04/01/17 13:29; Start 04/01/17 at 00:45 Senna/Docusate Sodium (Senna Plus) 1 tab PRN BID PRN PO CONSTIPATION Last administered on 04/01/17 20:29; Start 04/01/17 at 00:45 Enoxaparin Sodium (Lovenox 40mg Syringe) 40 mg 1X ONCE SQ Last administered on 04/01/17t 04:12; Start 04/01/17 at 01:00; Stop 04/01/17 at 01:01; Status DC Ephedrine Sulfate 50 mg STK-MED ONCE IV ; Start 04/01/17 at 01:01; Stop 04/01/17 at 01:02; Status DC Phenylephrine HCl (Timmy-Synephrine Inj) 10 mg STK-MED ONCE .ROUTE ; Start at 01:22; Stop 04/01/17 at 01:23; Status DC Fentanyl Citrate (Fentanyl 2ml Vial) 100 mcg STK-MED ONCE .ROUTE ; Start at 01:36; Stop 04/01/17 at 01:37; Status DC Fentanyl Citrate (Fentanyl 2ml Vial) 25 mcg PRN Q5MIN PRN IV MILD PAIN Last administered on 04/01/17t 02:22; Start 04/01/17 at 01:45; Stop 04/01/17 at 22:05; Status DC Fentanyl Citrate (Fentanyl 2ml Vial) 50 mcg PRN Q5MIN PRN IV MODERATE PAIN; Start 04/01/17 at 01:45; Stop 04/01/17 at 22:05; Status DC Morphine Sulfate 1 mg PRN Q10MIN PRN IV SEVERE PAIN; Start 04/01/17 at 01:45; Stop 04/01/17 at 22:05; Status DC Ringer's Solution 1,000 ml @ 30 mls/hr Q24H IV ; Start 04/01/17 at 01:40; Stop 04/01/17 at 11:36; Status DC Lidocaine HCl 2 ml PRN 1X PRN ID PRIOR TO IV START; Start 04/01/17 at 01:45; Stop 04/01/17 at 22:05; Status DC Hydromorphone HCl (Dilaudid) 0.5 mg PRN Q10MIN PRN IV SEV PAIN, Second choice; Start 04/01/17 at 01:45; Stop 04/01/17 at 22:05; Status DC Prochlorperazine Edisylate (Compazine) 5 mg PACU PRN PRN IV NAUSEA, MRX1; Start 04/01/17 at 01:45; Stop 04/01/17 at 22:05; Status DC Oxycodone/ Acetaminophen (Percocet 5/325) 1 tab PRN Q4HRS PRN PO SEVERE PAIN Last administered on 04/02/17 05:26; Start 04/01/17 at 09:00 Fentanyl Citrate (Fentanyl 2ml Vial) 25 mcg PRN Q2HR PRN IV PAIN Last administered on 04/01/17 20:30; Start 04/01/17 at 09:00; Stop 04/01/17 at 22:05; Status DC Cefazolin Sodium (Ancef 1gm Ivpb For Omni) 1 gm STK-MED ONCE IV ; Start 03/31/17 at 07:22; Stop 04/01/17 at 09:01; Status DC Cefazolin Sodium (Ancef 1gm Ivpb For Omni) 1 gm STK-MED ONCE IV ; Start 03/31/17 at 12:00; Stop 04/01/17 at 09:09; Status DC Sodium Chloride 1,000 ml @ 80 mls/hr [id number] IV Last administered on 04/02/17 12:02; Start 04/01/17 at 11:45 Enoxaparin Sodium (Lovenox 40mg Syringe) 40 mg Q24H SQ Last administered on 04/02 12:01; Start 04/01/17 at 13:00 Levofloxacin (Levaquin) 500 mg 1X ONCE PO ; Start 04/01/17 at 06:00; Stop at 21:22; Status DC Levofloxacin (Levaquin) 250 mg DAILY06 PO ; Start 04/03/17 at 06:00 Morphine Sulfate 2 mg PRN Q2HR PRN IV SEVERE PAIN Last administered on 22:14; Start 04/01/17 at 22:15 Ibuprofen (Motrin) 400 mg Q4HRS PO Last administered on 04/02/17 12:01; Start 04/01/17 at 22:15 Levofloxacin (Levaquin) 500 mg 1X ONCE PO Last administered on 04/02/17 05:25 ; Start 04/02/17 at 06:00; Stop 04/02/17 at 06:01; Status DC Active Scripts Active Levaquin (Levofloxacin) 500 Mg Tablet 1 Tab PO DAILY Reported Lidocaine 1 Each Adh..patch 1 Each TP DAILY Prednisone 10 Mg Tablet 10 Mg PO DAILY 04/22/15 start 40 mg x 4 days 04/26/15 start 30 mg x 4 days 04/30/15 start 20 mg x 4 days 05/04/15 start 10 mg x 4 days 05/08/15 start 5 mg x 4 days Last Dose 05/11/15 then stop Promethazine-Codeine Syrup (Promethazine Hcl/Codeine) 118 Ml Syrup 5 Ml PO Q4- 6HRS Furosemide 80 Mg Tablet 1 Tab PO DAILY Zofran Odt (Ondansetron) 4 Mg Tab.rapdis 4 Mg PO BID PRN Meclizine Hcl 25 Mg Tablet 1 Tab PO PRN TID Albuterol Sulfate Hfa Inhaler (Albuterol Sulfate) 8.5 Gm Hfa.aer.ad 2 Puff INH Q4HRS PRN Potassium Chloride 20 Meq Tab.er.prt 1 Tab PO BID All Day Allergy Relief (Cetirizine Hcl) 10 Mg Tablet 10 Mg PO QHS Promethazine-Codeine Syrup (Promethazine Hcl/Codeine) 118 Ml Syrup 5 Ml PO Q4HRS Pantoprazole Sodium 40 Mg Tablet.dr 40 Mg PO BIDAC Singulair Tablet (Montelukast Sodium) 10 Mg Tablet 10 Mg PO HS Levothyroxine Sodium 75 Mcg Tablet 1 Tab PO DAILY Duoneb 0.5-3(2.5) Mg/3 Ml (Albuterol/Ipratropium) 3 Ml Ampul.neb 3 Ml IH QID Advair 500-50 Diskus (Fluticasone/Salmeterol) 1 Each Disk.w.dev 1 Puff IH BID Estradiol 1 Mg Tablet 1 Tab PO DAILY Diltiazem 24HR Cd (Diltiazem Hcl) 240 Mg Cap.er.24h 240 Mg PO DAILY Vitamin D3 (Cholecalciferol (Vitamin D3)) 4,000 Unit Capsule 4,000 Unit PO DAILY Ascorbic Acid 500 Mg Tablet 500 Mg PO DAILY Eliquis (Apixaban) 5 Mg Tablet 5 Mg PO BID Alprazolam 0.25 Mg Tablet 0.25 Mg PO PRN TID PRN Acetaminophen 500 Mg Tablet 1 Tab PO Q4HRS Vitals/I & O Vital Sign - Last 24 Hours 04/01/17 04/01/17 04/01/17 04/01/17 15:04 19:00 20:23 20:29 Temp 97.9 98.3 97.9 98.3 Pulse 18 79 Resp 16 20 B/P (MAP) 122/56 (78) 118/46 (70) Pulse Ox 88 94 94 O2 Delivery Room Air Nasal Cannula Nasal Cannula Nasal Cannula O2 Flow Rate 2.0 2.0 2.0 04/01/17 04/01/17 04/01/17 04/01/17 20:30 21:00 22:14 22:44 Resp 20 20 20 20 Pulse Ox 94 94 94 94 O2 Delivery Nasal Cannula Nasal Cannula Nasal Cannula Nasal Cannula O2 Flow Rate 2.0 2.0 2.0 2.5 04/01/17 04/02/17 04/02/17 04/02/17 22:55 02:58 02:59 05:26 Temp 98.2 97.8 97.8 98.2 97.8 97.8 Pulse 77 78 78 Resp 16 16 16 20 B/P (MAP) 124/62 (82) 119/58 (78) 119/58 (78) Pulse Ox 94 95 95 95 O2 Delivery Nasal Cannula Nasal Cannula Nasal Cannula Nasal Cannula O2 Flow Rate 2.5 2.5 2.5 2.5 04/02/17 04/02/17 04/02/17 04/02/17 06:26 07:00 08:00 10:59 Temp 98.1 98.4 98.1 98.4 Pulse 76 78 Resp 20 16 16 B/P (MAP) 121/53 (75) 130/60 (83) Pulse Ox 95 96 96 O2 Delivery Nasal Cannula Room Air Nasal Cannula Room Air O2 Flow Rate 2.5 2.0 Intake and Output 04/01/17 04/01/17 04/02/17 15:00 23:00 07:00 Intake Total 458 ml Output Total 1100 ml Balance -642 ml TIMOTHY VELAZQUEZ III DO Apr 02, 2017 12:14
--- NOTE | 2017-04-02 15:32 | PDOC2 ---
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 ZITHROMAX ON DAILY BASIS PT LAST WEEK WITH INCREASE SOA ON PRED ON HOME NOW COUGH UP CLEAR NO HEMOPTYSIS NO FEVER Past Medical History Cardiovascular: No pertinent hx Pulmonary: Asthma, Other (RUCCURENT BRONCHITS) GI: GERD Heme/Onc: No pertinent hx Psych: Depression ENT: Sincusitis Endocrine: Hypothyroidism Past Surgical History Past Surgical History: Cataract Removal, Total knee replacement Family History Family History: Hypertension Social History No ALCOHOL: none Drugs: None Current Problem List Problem List Problems Medical Problems: (1) Closed fracture of right proximal humerus Status: Acute Current Medications Current Medications Current Medications Albuterol/ Ipratropium (Duoneb) 3 ml 1X ONCE NEB Last administered on 22:43; Start 03/31/17 at 22:00; Stop 03/31/17 at 22:01; Status DC Sodium Chloride 1,000 ml @ 100 mls/hr Q10H IV Last administered on 03/31/17 22 :55; Start 03/31/17 at 22:22; Stop 04/01/17 at 08:21; Status DC Neomycin/ Polymyxin/ Bacitracin (Triple Antibiotic Ointment) 1 pkt STK-MED ONCE TP ; Start 03/31/17 at 23:16; Stop 03/31/17 at 23:17; Status DC Cefazolin Sodium 50 ml @ As Directed STK-MED ONCE IV ; Start 03/31/17 at 23:19; Stop 03/31/17 at 23:20; Status Cancel Dexamethasone Sodium Phosphate (Decadron) 20 mg STK-MED ONCE .ROUTE ; Start 03/31 at 23:20; Stop 03/31/17 at 23:21; Status DC Ondansetron HCl (Zofran) 4 mg STK-MED ONCE .ROUTE ; Start 03/31/17 at 23:20; Stop 03/31/17 at 23:21; Status DC Propofol 20 ml @ As Directed STK-MED ONCE IV ; Start 03/31/17 at 23:20; Stop 03/31 at 23:21; Status DC Lidocaine HCl (Lidocaine Pf 2% Vial) 5 ml STK-MED ONCE .ROUTE ; Start 03/31/17 at 23:20; Stop 03/31/17 at 23:21; Status DC Fentanyl Citrate (Fentanyl 2ml Vial) 100 mcg STK-MED ONCE .ROUTE ; Start at 23:20; Stop 03/31/17 at 23:21; Status DC Sevoflurane (Ultane) 15 ml STK-MED ONCE IH ; Start 03/31/17 at 23:20; Stop at 23:21; Status DC Sodium Chloride (NORMAL SALINE FLUSH for STERILE FIELD) 10 ml STK-MED ONCE .ROUTE ; Start 03/31/17 at 23:34; Stop 03/31/17 at 23:35; Status DC Bupivacaine HCl (Marcaine 0.5%) 50 ml STK-MED ONCE .ROUTE ; Start 04/01/17 at 00: 21; Stop 04/01/17 at 00:22; Status DC Lidocaine HCl 20 ml STK-MED ONCE .ROUTE ; Start 04/01/17 at 00:21; Stop 04/01/17 at 00:22; Status DC Cefazolin Sodium 1 gm/Sodium Chloride 50 ml @ 100 mls/hr Q8H IV ; Start at 00:45; Stop 04/02/17 at 09:14; Status UNV Acetaminophen/ Hydrocodone Bitart (Lortab 5/325) 1 tab PRN Q4HRS PRN PO MODERATE PAIN Last administered on 04/01/17 13:29; Start 04/01/17 at 00:45 Senna/Docusate Sodium (Senna Plus) 1 tab PRN BID PRN PO CONSTIPATION Last administered on 04/01/17 20:29; Start 04/01/17 at 00:45 Enoxaparin Sodium (Lovenox 40mg Syringe) 40 mg 1X ONCE SQ Last administered on 04/01/17 04:12; Start 04/01/17 at 01:00; Stop 04/01/17 at 01:01; Status DC Ephedrine Sulfate 50 mg STK-MED ONCE IV ; Start 04/01/17 at 01:01; Stop 04/01/17 at 01:02; Status DC Phenylephrine HCl (Timmy-Synephrine Inj) 10 mg STK-MED ONCE .ROUTE ; Start at 01:22; Stop 04/01/17 at 01:23; Status DC Fentanyl Citrate (Fentanyl 2ml Vial) 100 mcg STK-MED ONCE .ROUTE ; Start at 01:36; Stop 04/01/17 at 01:37; Status DC Fentanyl Citrate (Fentanyl 2ml Vial) 25 mcg PRN Q5MIN PRN IV MILD PAIN Last administered on 04/01/17 02:22; Start 04/01/17 at 01:45; Stop 04/01/17 at 22:05; Status DC Fentanyl Citrate (Fentanyl 2ml Vial) 50 mcg PRN Q5MIN PRN IV MODERATE PAIN; Start 04/01/17 at 01:45; Stop 04/01/17 at 22:05; Status DC Morphine Sulfate 1 mg PRN Q10MIN PRN IV SEVERE PAIN; Start 04/01/17 at 01:45; Stop 04/01/17 at 22:05; Status DC Ringer's Solution 1,000 ml @ 30 mls/hr Q24H IV ; Start 04/01/17 at 01:40; Stop 04/01/17 at 11:36; Status DC Lidocaine HCl 2 ml PRN 1X PRN ID PRIOR TO IV START; Start 04/01/17 at 01:45; Stop 04/01/17 at 22:05; Status DC Hydromorphone HCl (Dilaudid) 0.5 mg PRN Q10MIN PRN IV SEV PAIN, Second choice; Start 04/01/17 at 01:45; Stop 04/01/17 at 22:05; Status DC Prochlorperazine Edisylate (Compazine) 5 mg PACU PRN PRN IV NAUSEA, MRX1; Start 04/01/17 at 01:45; Stop 04/01/17 at 22:05; Status DC Oxycodone/ Acetaminophen (Percocet 5/325) 1 tab PRN Q4HRS PRN PO SEVERE PAIN Last administered on 04/02/17 05:26; Start 04/01/17 at 09:00 Fentanyl Citrate (Fentanyl 2ml Vial) 25 mcg PRN Q2HR PRN IV PAIN Last administered on 04/01/17 20:30; Start 04/01/17 at 09:00; Stop 04/01/17 at 22:05; Status DC Cefazolin Sodium (Ancef 1gm Ivpb For Omni) 1 gm STK-MED ONCE IV ; Start 03/31/17 at 07:22; Stop 04/01/17 at 09:01; Status DC Cefazolin Sodium (Ancef 1gm Ivpb For Omni) 1 gm STK-MED ONCE IV ; Start 03/31/17 at 12:00; Stop 04/01/17 at 09:09; Status DC Sodium Chloride 1,000 ml @ 80 mls/hr [id number] IV Last administered on 04/02/17 12:02; Start 04/01/17 at 11:45 Enoxaparin Sodium (Lovenox 40mg Syringe) 40 mg Q24H SQ Last administered on 04/02 12:01; Start 04/01/17 at 13:00 Levofloxacin (Levaquin) 500 mg 1X ONCE PO ; Start 04/01/17 at 06:00; Stop at 21:22; Status DC Levofloxacin (Levaquin) 250 mg DAILY06 PO ; Start 04/03/17 at 06:00; Stop at 06:01 Morphine Sulfate 2 mg PRN Q2HR PRN IV SEVERE PAIN Last administered on 22:14; Start 04/01/17 at 22:15 Ibuprofen (Motrin) 400 mg Q4HRS PO Last administered on 04/02/17 15:18; Start 04/01/17 at 22:15 Levofloxacin (Levaquin) 500 mg 1X ONCE PO Last administered on 04/02/17 05:25 ; Start 04/02/17 at 06:00; Stop 04/02/17 at 06:01; Status DC Active Scripts Active Reported Lidocaine 1 Each Adh..patch 1 Each TP DAILY Prednisone 10 Mg Tablet 10 Mg PO DAILY 04/22/15 start 40 mg x 4 days 04/26/15 start 30 mg x 4 days 04/30/15 start 20 mg x 4 days 05/04/15 start 10 mg x 4 days 05/08/15 start 5 mg x 4 days Last Dose 05/11/15 then stop Promethazine-Codeine Syrup (Promethazine Hcl/Codeine) 118 Ml Syrup 5 Ml PO Q4- 6HRS Furosemide 80 Mg Tablet 1 Tab PO DAILY Zofran Odt (Ondansetron) 4 Mg Tab.rapdis 4 Mg PO BID PRN Meclizine Hcl 25 Mg Tablet 1 Tab PO PRN TID Albuterol Sulfate Hfa Inhaler (Albuterol Sulfate) 8.5 Gm Hfa.aer.ad 2 Puff INH Q4HRS PRN Potassium Chloride 20 Meq Tab.er.prt 1 Tab PO BID All Day Allergy Relief (Cetirizine Hcl) 10 Mg Tablet 10 Mg PO QHS Promethazine-Codeine Syrup (Promethazine Hcl/Codeine) 118 Ml Syrup 5 Ml PO Q4HRS Pantoprazole Sodium 40 Mg Tablet.dr 40 Mg PO BIDAC Singulair Tablet (Montelukast Sodium) 10 Mg Tablet 10 Mg PO HS Levothyroxine Sodium 75 Mcg Tablet 1 Tab PO DAILY Duoneb 0.5-3(2.5) Mg/3 Ml (Albuterol/Ipratropium) 3 Ml Ampul.neb 3 Ml IH QID Advair 500-50 Diskus (Fluticasone/Salmeterol) 1 Each Disk.w.dev 1 Puff IH BID Estradiol 1 Mg Tablet 1 Tab PO DAILY Diltiazem 24HR Cd (Diltiazem Hcl) 240 Mg Cap.er.24h 240 Mg PO DAILY Vitamin D3 (Cholecalciferol (Vitamin D3)) 4,000 Unit Capsule 4,000 Unit PO DAILY Ascorbic Acid 500 Mg Tablet 500 Mg PO DAILY Eliquis (Apixaban) 5 Mg Tablet 5 Mg PO BID Alprazolam 0.25 Mg Tablet 0.25 Mg PO PRN TID PRN Acetaminophen 500 Mg Tablet 1 Tab PO Q4HRS Allergies Allergies: Coded Allergies: Tetracyclines (Verified Allergy, Intermediate, Hives, 01/24/15) adhesive (Verified Allergy, Intermediate, Rash, 01/24/15) cefotaxime (Verified Allergy, Intermediate, Hives, 01/24/15) clindamycin (Verified Allergy, Intermediate, Hives, 01/24/15) vancomycin (Verified Allergy, Intermediate, Hives, 01/23/15) ROS ALLERGY AND IMMUNOLOGY: YES: Itchy/Watery Eyes, Seasonal Allergies Respiratory: YES: Cough, Orthopnea, Shortness of breath, SOB with excertion, Sputum Changes, Tachypnea, Wheezing Physical Exam General: Alert, Oriented X3, Cooperative, No acute distress HEENT: PERRLA, Mucous membr. moist/pink Lungs: Other (BILATERAL WHEEZE) Heart: Regular rate, Normal S1, Normal S2, No murmurs Abdomen: Normal bowel sounds, Soft, No tenderness, No hepatosplenomegaly, No masses Extremities: Other (S/P SURGERY RLL) Skin: No rashes, No breakdown Psych/Mental Status: Mental status NL, Mood NL Vitals VITALS Vital Signs Date Time Temp Pulse Resp B/P (MAP) Pulse Ox O2 Delivery O2 Flow Rate FiO2 04/02/17 15:00 98.1 82 16 136/68 (90) 96 Room Air 98.1 04/02/17 08:00 2.0 Labs Labs Laboratory Tests Test 03/31/17 23:00 03/31/17 23:40 04/01/17 10:00 04/02/17 05:30 Prothrombin Time 14.0 SEC (11.7-14.0) Prothromb Time International Ratio 1.2 (0.8-1.1) Activated Partial Thromboplast Time 24 SEC (24-38) White Blood Count 15.5 x10^3/uL (4.0-11.0) 9.4 x10^3/uL (4.0-11.0) Red Blood Count 3.53 x10^6/uL (3.50-5.40) 2.73 x10^6/uL (3.50-5.40) Hemoglobin 10.4 g/dL (12.0-15.5) 8.1 g/dL (12.0-15.5) Hematocrit 31.6 % (36.0-47.0) 23.9 % (36.0-47.0) Mean Corpuscular Volume 90 fL (79-100) 87 fL (79-100) Mean Corpuscular Hemoglobin 29 pg (25-35) 30 pg (25-35) Mean Corpuscular Hemoglobin Concent 33 g/dL (31-37) 34 g/dL (31-37) Red Cell Distribution Width 14.5 % (11.5-14.5) 13.9 % (11.5-14.5) Platelet Count 111 x10^3/uL (140-400) 119 x10^3/uL (140-400) Neutrophils (%) (Auto) 59 % (31-73) 83 % (31-73) Lymphocytes (%) (Auto) 9 % (24-48) 6 % (24-48) Monocytes (%) (Auto) 9 % (0-9) 11 % (0-9) Eosinophils (%) (Auto) 22 % (0-3) 0 % (0-3) Basophils (%) (Auto) 1 % (0-3) 0 % (0-3) Neutrophils # (Auto) 9.1 x10^3uL (1.8-7.7) 7.8 x10^3uL (1.8-7.7) Lymphocytes # (Auto) 1.4 x10^3/uL (1.0-4.8) 0.6 x10^3/uL (1.0-4.8) Monocytes # (Auto) 1.4 x10^3/uL (0.0-1.1) 1.0 x10^3/uL (0.0-1.1) Eosinophils # (Auto) 3.5 x10^3/uL (0.0-0.7) 0.0 x10^3/uL (0.0-0.7) Basophils # (Auto) 0.1 x10^3/uL (0.0-0.2) 0.0 x10^3/uL (0.0-0.2) Segmented Neutrophils % 67 % (35-66) Band Neutrophils % 1 % (0-9) Lymphocytes % 14 % (24-48) Monocytes % 6 % (0-10) Eosinophils % 12 % (0-5) Platelet Estimate Decreased (ADEQUATE) Giant Platelets Occ Sodium Level 143 mmol/L (136-145) 143 mmol/L (136-145) Potassium Level 3.8 mmol/L (3.5-5.1) 4.7 mmol/L (3.5-5.1) Chloride Level 106 mmol/L (98-107) 109 mmol/L (98-107) Carbon Dioxide Level 28 mmol/L (21-32) 29 mmol/L (21-32) Anion Gap 9 (6-14) 5 (6-14) Blood Urea Nitrogen 21 mg/dL (7-20) 26 mg/dL (7-20) Creatinine 1.7 mg/dL (0.6-1.0) 1.4 mg/dL (0.6-1.0) Estimated GFR (Cockcroft-Gault) 29.3 36.7 Glucose Level 98 mg/dL (70-99) 130 mg/dL (70-99) Calcium Level 7.8 mg/dL (8.5-10.1) 7.9 mg/dL (8.5-10.1) 25-Hydroxy Vitamin D Total 52.1 ng/mL (30.0-100.0) Laboratory Tests Test 04/02/17 05:30 White Blood Count 9.4 x10^3/uL (4.0-11.0) Red Blood Count 2.73 x10^6/uL (3.50-5.40) Hemoglobin 8.1 g/dL (12.0-15.5) Hematocrit 23.9 % (36.0-47.0) Mean Corpuscular Volume 87 fL (79-100) Mean Corpuscular Hemoglobin 30 pg (25-35) Mean Corpuscular Hemoglobin Concent 34 g/dL (31-37) Red Cell Distribution Width 13.9 % (11.5-14.5) Platelet Count 119 x10^3/uL (140-400) Neutrophils (%) (Auto) 83 % (31-73) Lymphocytes (%) (Auto) 6 % (24-48) Monocytes (%) (Auto) 11 % (0-9) Eosinophils (%) (Auto) 0 % (0-3) Basophils (%) (Auto) 0 % (0-3) Neutrophils # (Auto) 7.8 x10^3uL (1.8-7.7) Lymphocytes # (Auto) 0.6 x10^3/uL (1.0-4.8) Monocytes # (Auto) 1.0 x10^3/uL (0.0-1.1) Eosinophils # (Auto) 0.0 x10^3/uL (0.0-0.7) Basophils # (Auto) 0.0 x10^3/uL (0.0-0.2) Sodium Level 143 mmol/L (136-145) Potassium Level 4.7 mmol/L (3.5-5.1) Chloride Level 109 mmol/L (98-107) Carbon Dioxide Level 29 mmol/L (21-32) Anion Gap 5 (6-14) Blood Urea Nitrogen 26 mg/dL (7-20) Creatinine 1.4 mg/dL (0.6-1.0) Estimated GFR (Cockcroft-Gault) 36.7 Glucose Level 130 mg/dL (70-99) Calcium Level 7.9 mg/dL (8.5-10.1) Assessment/Plan Assessment/Plan H/O RECURRENT BRONCHITIS ALVEOLITIS MUCUS PLUGGING HAS HAD MULTIPLE BRONCHO IN PAST RULED OUT OF ABPA 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
[2017-04-02] MEDS: IPRATRPIUM/ALBUTEROL 0.5/2.5MG 3 ML NEBU. NEB SCH ×2 (16:00→20:23)
[2017-04-02] MEDS ORDERED: ALBUTEROL SULFATE 2.5 MG/3 ML NEBU. NEB PRN (16:00)
[2017-04-02] MEDS: methylPREDNISolone SOD SUCC PF 125 MG/2 ML VIAL. IV SCH (16:43)
[2017-04-02] MEDS: SENNOSIDES/DOCUSATE 8.6/50MG TABLET. PO PRN (20:43)
[2017-04-02] MEDS: PROMETH/CODEINE 6.25/10MG 5 ML SYRUP. PO SCH (20:44)
[2017-04-03 03:19] VITALS: BP 141/64
[2017-04-03] MEDS: PROMETH/CODEINE 6.25/10MG 5 ML SYRUP. PO SCH ×4 (04:18→12:37)
[2017-04-03] MEDS: IPRATRPIUM/ALBUTEROL 0.5/2.5MG 3 ML NEBU. NEB SCH ×3 (06:50→14:38)
[2017-04-03 07:00] VITALS: BP 137/51
[2017-04-03] MEDS: methylPREDNISolone SOD SUCC PF 125 MG/2 ML VIAL. IV SCH (08:46)
[2017-04-03] MEDS: oxyCODONE/APAP 5/325 1 TAB TABLET PO PRN (08:48)
--- NOTE | 2017-04-03 09:55 | PDOC ---
ORTHO PROGRESS NOTES Subjective Denies any pain at rest. a Vitals Vital Signs Date Time Temp Pulse Resp B/P (MAP) Pulse Ox O2 Delivery O2 Flow Rate FiO2 04/03/17 08:48 16 Nasal Cannula 2.0 04/03/17 07:00 95.7 88 137/51 (79) 97 95.7 Labs Laboratory Tests Test 04/01/17 10:00 04/02/17 05:30 25-Hydroxy Vitamin D Total 52.1 ng/mL (30.0-100.0) White Blood Count 9.4 x10^3/uL (4.0-11.0) Red Blood Count 2.73 x10^6/uL (3.50-5.40) Hemoglobin 8.1 g/dL (12.0-15.5) Hematocrit 23.9 % (36.0-47.0) Mean Corpuscular Volume 87 fL (79-100) Mean Corpuscular Hemoglobin 30 pg (25-35) Mean Corpuscular Hemoglobin Concent 34 g/dL (31-37) Red Cell Distribution Width 13.9 % (11.5-14.5) Platelet Count 119 x10^3/uL (140-400) Neutrophils (%) (Auto) 83 % (31-73) Lymphocytes (%) (Auto) 6 % (24-48) Monocytes (%) (Auto) 11 % (0-9) Eosinophils (%) (Auto) 0 % (0-3) Basophils (%) (Auto) 0 % (0-3) Neutrophils # (Auto) 7.8 x10^3uL (1.8-7.7) Lymphocytes # (Auto) 0.6 x10^3/uL (1.0-4.8) Monocytes # (Auto) 1.0 x10^3/uL (0.0-1.1) Eosinophils # (Auto) 0.0 x10^3/uL (0.0-0.7) Basophils # (Auto) 0.0 x10^3/uL (0.0-0.2) Sodium Level 143 mmol/L (136-145) Potassium Level 4.7 mmol/L (3.5-5.1) Chloride Level 109 mmol/L (98-107) Carbon Dioxide Level 29 mmol/L (21-32) Anion Gap 5 (6-14) Blood Urea Nitrogen 26 mg/dL (7-20) Creatinine 1.4 mg/dL (0.6-1.0) Estimated GFR (Cockcroft-Gault) 36.7 Glucose Level 130 mg/dL (70-99) Calcium Level 7.9 mg/dL (8.5-10.1) Notes A and A in bed pin site clean, small amount of bloody drainage no change in NV status Assessment and Plan Ex-fix for distal femur fx transfer later today discussed obtaining CD with all imaging for patient and pin site cares with nursing CHER ECHEVERRIA II, MD Apr 03, 2017 09:55
[2017-04-03 10:55] VITALS: BP 128/52
--- NOTE | 2017-04-03 12:36 | PDOC3 ---
Discharge Summary Visit Information Date of Discharge: Apr 03, 2017 Admitting Diagnosis: femur fx Final Diagnosis Problems Medical Problems: (1) Closed fracture of right proximal humerus Status: Acute Brief Hospital Course Allergies Allergies Coded Allergies Type Severity Reaction Last Updated Verified Tetracyclines Allergy Intermediate Hives 01/24/15 Yes adhesive Allergy Intermediate Rash 01/24/15 Yes cefotaxime Allergy Intermediate Hives 01/24/15 Yes clindamycin Allergy Intermediate Hives 01/24/15 Yes vancomycin Allergy Intermediate Hives 01/23/15 Yes Vital Signs Vital Signs Date Time Temp Pulse Resp B/P (MAP) Pulse Ox O2 Delivery O2 Flow Rate FiO2 04/03/17 10:55 96.1 67 18 128/52 (77) 99 Nasal Cannula 2.0 96.1 Lab Results Laboratory Tests Test 04/02/17 05:30 White Blood Count 9.4 x10^3/uL (4.0-11.0) Red Blood Count 2.73 x10^6/uL (3.50-5.40) Hemoglobin 8.1 g/dL (12.0-15.5) Hematocrit 23.9 % (36.0-47.0) Mean Corpuscular Volume 87 fL (79-100) Mean Corpuscular Hemoglobin 30 pg (25-35) Mean Corpuscular Hemoglobin Concent 34 g/dL (31-37) Red Cell Distribution Width 13.9 % (11.5-14.5) Platelet Count 119 x10^3/uL (140-400) Neutrophils (%) (Auto) 83 % (31-73) Lymphocytes (%) (Auto) 6 % (24-48) Monocytes (%) (Auto) 11 % (0-9) Eosinophils (%) (Auto) 0 % (0-3) Basophils (%) (Auto) 0 % (0-3) Neutrophils # (Auto) 7.8 x10^3uL (1.8-7.7) Lymphocytes # (Auto) 0.6 x10^3/uL (1.0-4.8) Monocytes # (Auto) 1.0 x10^3/uL (0.0-1.1) Eosinophils # (Auto) 0.0 x10^3/uL (0.0-0.7) Basophils # (Auto) 0.0 x10^3/uL (0.0-0.2) Sodium Level 143 mmol/L (136-145) Potassium Level 4.7 mmol/L (3.5-5.1) Chloride Level 109 mmol/L (98-107) Carbon Dioxide Level 29 mmol/L (21-32) Anion Gap 5 (6-14) Blood Urea Nitrogen 26 mg/dL (7-20) Creatinine 1.4 mg/dL (0.6-1.0) Estimated GFR (Cockcroft-Gault) 36.7 Glucose Level 130 mg/dL (70-99) Calcium Level 7.9 mg/dL (8.5-10.1) Brief Hospital Course Ms. Schaefer is a 76 old [sex] who presented with [ ]a distal femur fracture. Ortho was consulted She was taken to OR and has a very complex apparatus on the leg now. Apparently she needs special surgery at [facility]. We are transferring. Pt seen and examined Dictation still broken Total time 34 minutes Discharge Information Scheduled Acetaminophen (Acetaminophen), 1 TAB PO Q4HRS, (Reported) Apixaban (Eliquis), 5 MG PO BID, (Reported) Ascorbic Acid (Ascorbic Acid), 500 MG PO DAILY, (Reported) Cetirizine Hcl (All Day Allergy Relief), 10 MG PO QHS, (Reported) Cholecalciferol (Vitamin D3) (Vitamin D3), 4,000 UNIT PO DAILY, (Reported) Diltiazem Hcl (Diltiazem 24HR Cd), 240 MG PO DAILY, (Reported) Estradiol (Estradiol), 1 TAB PO DAILY, (Reported) Fluticasone/Salmeterol (Advair 500-50 Diskus), 1 PUFF IH BID, (Reported) Furosemide (Furosemide), 1 TAB PO DAILY, (Reported) Ipratropium/Albuterol Sulfate (Duoneb 0.5-3(2.5) Mg/3 Ml), 3 ML IH QID, ( Reported) Levothyroxine Sodium (Levothyroxine Sodium), 1 TAB PO DAILY, (Reported) Lidocaine (Lidocaine), 1 EACH TP DAILY, (Reported) Meclizine Hcl (Meclizine Hcl), 1 TAB PO PRN TID, (Reported) Montelukast Sodium (Singulair Tablet), 10 MG PO HS, (Reported) Pantoprazole Sodium (Pantoprazole Sodium), 40 MG PO BIDAC, (Reported) Potassium Chloride (Potassium Chloride), 1 TAB PO BID, (Reported) Prednisone (Prednisone), 10 MG PO DAILY, (Reported) Promethazine Hcl/Codeine (Promethazine-Codeine Syrup), 5 ML PO Q4HRS, (Reported) Promethazine Hcl/Codeine (Promethazine-Codeine Syrup), 5 ML PO Q4-6HRS, ( Reported) Scheduled PRN Albuterol Sulfate (Albuterol Sulfate Hfa Inhaler), 2 PUFF INH Q4HRS PRN for SHORTNESS OF BREATH, (Reported) Alprazolam (Alprazolam), 0.25 MG PO PRN TID PRN for ANXIETY / AGITATION, ( Reported) Ondansetron (Zofran Odt), 4 MG PO BID PRN for NAUSEA/VOMITING, (Reported) Discontinued Medications Levofloxacin (Levaquin), 1 TAB PO DAILY Discontinued Reason: COMPLETED TIMOTHY VELAZQUEZ III DO Apr 03, 2017 12:36
[2017-04-03] MEDS: ENOXAPARIN 40 MG/0.4 ML SYRINGE. SQ SCH (12:37)
[2017-04-03 15:00] VITALS: BP 126/42
--- NOTE | 2017-04-03 15:56 | PDOC ---
PULMONARY PROGRESS NOTES Vitals Vital Signs Date Time Temp Pulse Resp B/P (MAP) Pulse Ox O2 Delivery O2 Flow Rate FiO2 04/03/17 15:00 96.6 78 18 126/42 (70) 99 Room Air 96.6 04/03/17 10:55 2.0 General: Alert Lungs: Clear Cardiovascular: S1, S2 Abdomen: Soft Extremities: No Edema Labs Laboratory Tests Test 04/02/17 05:30 White Blood Count 9.4 x10^3/uL (4.0-11.0) Red Blood Count 2.73 x10^6/uL (3.50-5.40) Hemoglobin 8.1 g/dL (12.0-15.5) Hematocrit 23.9 % (36.0-47.0) Mean Corpuscular Volume 87 fL (79-100) Mean Corpuscular Hemoglobin 30 pg (25-35) Mean Corpuscular Hemoglobin Concent 34 g/dL (31-37) Red Cell Distribution Width 13.9 % (11.5-14.5) Platelet Count 119 x10^3/uL (140-400) Neutrophils (%) (Auto) 83 % (31-73) Lymphocytes (%) (Auto) 6 % (24-48) Monocytes (%) (Auto) 11 % (0-9) Eosinophils (%) (Auto) 0 % (0-3) Basophils (%) (Auto) 0 % (0-3) Neutrophils # (Auto) 7.8 x10^3uL (1.8-7.7) Lymphocytes # (Auto) 0.6 x10^3/uL (1.0-4.8) Monocytes # (Auto) 1.0 x10^3/uL (0.0-1.1) Eosinophils # (Auto) 0.0 x10^3/uL (0.0-0.7) Basophils # (Auto) 0.0 x10^3/uL (0.0-0.2) Sodium Level 143 mmol/L (136-145) Potassium Level 4.7 mmol/L (3.5-5.1) Chloride Level 109 mmol/L (98-107) Carbon Dioxide Level 29 mmol/L (21-32) Anion Gap 5 (6-14) Blood Urea Nitrogen 26 mg/dL (7-20) Creatinine 1.4 mg/dL (0.6-1.0) Estimated GFR (Cockcroft-Gault) 36.7 Glucose Level 130 mg/dL (70-99) Calcium Level 7.9 mg/dL (8.5-10.1) Medications Active Scripts Medications Dose Route/Sig Max Daily Dose Days Date Category Dose Instructions Lidocaine 1 Each Adh..patch 1 Each TP DAILY 04/02/17 Reported Prednisone 10 Mg Tablet 10 Mg PO DAILY 04/21/15 Reported 04/22/15 start 40 mg x 4 days 04/26/15 start 30 mg x 4 days 04/30/15 start 20 mg x 4 days 05/04/15 start 10 mg x 4 days 05/08/15 start 5 mg x 4 days Last Dose 05/11/15 then stop Promethazine-Codeine Syrup (Promethazine Hcl/Codeine) 118 Ml Syrup 5 Ml PO Q4-6HRS 04/17/15 Reported Furosemide 80 Mg Tablet 1 Tab PO DAILY 04/17/15 Reported Zofran Odt (Ondansetron) 4 Mg Tab.rapdis 4 Mg PO BID PRN 04/17/15 Reported Meclizine Hcl 25 Mg Tablet 1 Tab PO PRN TID 04/17/15 Reported Albuterol Sulfate Hfa Inhaler (Albuterol Sulfate) 8.5 Gm Hfa.aer.ad 2 Puff INH Q4HRS PRN 04/17/15 Reported Potassium Chloride 20 Meq Tab.er.prt 1 Tab PO BID 04/17/15 Reported All Day Allergy Relief (Cetirizine Hcl) 10 Mg Tablet 10 Mg PO QHS 04/17/15 Reported Promethazine-Codeine Syrup (Promethazine Hcl/Codeine) 118 Ml Syrup 5 Ml PO Q4HRS 01/22/15 Reported Pantoprazole Sodium 40 Mg Tablet.dr 40 Mg PO BIDAC 01/22/15 Reported Singulair Tablet (Montelukast Sodium) 10 Mg Tablet 10 Mg PO HS 01/22/15 Reported Levothyroxine Sodium 75 Mcg Tablet 1 Tab PO DAILY 01/22/15 Reported Duoneb 0.5-3(2.5) Mg/3 Ml (Albuterol/Ipratropium) 3 Ml Ampul.neb 3 Ml IH QID 01/22/15 Reported Advair 500-50 Diskus (Fluticasone/Salmeterol) 1 Each Disk.w.dev 1 Puff IH BID 01/22/15 Reported Estradiol 1 Mg Tablet 1 Tab PO DAILY 01/22/15 Reported Diltiazem 24HR Cd (Diltiazem Hcl) 240 Mg Cap.er.24h 240 Mg PO DAILY 01/22/15 Reported Vitamin D3 (Cholecalciferol (Vitamin D3)) 4,000 Unit Capsule 4,000 Unit PO DAILY 01/22/15 Reported Ascorbic Acid 500 Mg Tablet 500 Mg PO DAILY 01/22/15 Reported Eliquis (Apixaban) 5 Mg Tablet 5 Mg PO BID 01/22/15 Reported Alprazolam 0.25 Mg Tablet 0.25 Mg PO PRN TID PRN 01/22/15 Reported Acetaminophen 500 Mg Tablet 1 Tab PO Q4HRS 01/22/15 Reported Impression . 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 SEE ORDERS [facility] PULMONARY HYGIENE KIRA SALGUERO MD Apr 03, 2017 15:56
== END 2017-04-03 15:43 | disposition short-term general hospital (02) | DRG 480 ==
LOC: ER 20:48 → 4 NORTH 23:00
PROVIDERS: ADMIT Internal Medicine; ATTEND Internal Medicine
PROC: 0QSB35Z Reposition Right Lower Femur with External Fixation Device, Percutaneous Approach (ICD-10-PCS; principal; 2017-04-01)
DX: S72.401A Unspecified fracture of lower end of right femur, initial encounter for closed fracture (principal); N17.0 Acute kidney failure with tubular necrosis; R65.10 Systemic inflammatory response syndrome (SIRS) of non-infectious origin without acute organ dysfunction; J44.0 Chronic obstructive pulmonary disease with (acute) lower respiratory infection; E44.0 Moderate protein-calorie malnutrition; M97.11XA Periprosthetic fracture around internal prosthetic right knee joint, initial encounter; J20.9 Acute bronchitis, unspecified; E03.9 Hypothyroidism, unspecified; F32.9 Major depressive disorder, single episode, unspecified; K59.00 Constipation, unspecified; F41.9 Anxiety disorder, unspecified; W18.39XA Other fall on same level, initial encounter; J32.9 Chronic sinusitis, unspecified; Z96.651 Presence of right artificial knee joint; K21.9 Gastro-esophageal reflux disease without esophagitis; Z79.51 Long term (current) use of inhaled steroids; Z79.899 Other long term (current) drug therapy; Y99.8 Other external cause status; Y92.89 Other specified places as the place of occurrence of the external cause; Y93.89 Activity, other specified; Z82.49 Family history of ischemic heart disease and other diseases of the circulatory system; Z99.81 Dependence on supplemental oxygen; Z87.01 Personal history of pneumonia (recurrent); Z90.49 Acquired absence of other specified parts of digestive tract; Z88.1 Allergy status to other antibiotic agents; Z98.49 Cataract extraction status, unspecified eye; Z68.26 Body mass index [BMI] 26.0-26.9, adult
CPT/HCPCS: 36415; 71010; 73560; 73700; 76000; 80048; 82306; 85007; 85027; 85610; 85730; 93005; 94250; 94640; 94760; C1781; J0690; J1100; J1650; J2270; J2405; J2704; J2930; J3010; J3490; J7030; J7620; 99285-25

== ENCOUNTER 2019-07-08 21:00 | Inpatient (IN) | payer MEDICARE, BC ==
[~2019-07-08] VITALS: Ht 157.5 cm; Wt 71.3 kg
[~2019-07-08 21:00] MED LIST changes: +ASPI-630 PO; +ATOR20TA58 PO; -CHOL4000 PO; +CHOL40003 PO; +FURO20TA3 PO; -IPRA3AMP IH; +IPRA3AMP29 IH; +LEXAPRO20 MG PO; +LIDO700A21 TP; +MONT10TA49 PO; -MONT10TA6 PO; -PANT40TA5 PO; +PANT40TA77 PO; -PROM118S2 PO; +PROM118S5 PO; +ROFL500T7 PO; +TRAM50TA PO; -ceFAZolin 1GM IVPB FOR OMNI 1 GM/50 ML BAG IV ONE
--- NOTE | 2019-07-08 21:00 | NUR ---
The patient, CLEVELAND REAL, 78 y/o, F admitted by JAVIER KELLOGG MD, was given written information regarding hospital policies, unit procedures and contact persons. Valuables were checked and assessment was completed, will continue to monitor
[2019-07-08 21:47] VITALS: BP 138/74
[2019-07-08] MEDS ORDERED: ONDANSETRON ODT 4 MG TAB.RAPDIS. PO PRN ×2 (22:15)
[2019-07-08] MEDS ORDERED: guaiFENesin/CODEINE 100mg/10mg 5 ML LIQUID PO PRN (22:15)
[2019-07-08] MEDS ORDERED: ALBUTEROL SULFATE 2.5 MG/3 ML NEBU. NEB PRN (22:15)
[2019-07-08] MEDS ORDERED: ACETAMINOPHEN 325 MG TABLET. PO PRN (22:15)
[2019-07-08] MEDS ORDERED: traMADol 50 MG TABLET PO PRN (22:15)
[2019-07-08 23:00] VITALS: BP 119/67
[2019-07-08] MEDS ORDERED: MECLIZINE HCL 12.5 MG TABLET. PO PRN (23:00)
[2019-07-09 03:00] VITALS: BP 136/72
[2019-07-09] MEDS: LEVOTHYROXINE 75 MCG TABLET PO SCH (04:57)
[2019-07-09 05:35] LABS: BASO % 0 % (0-3); EOS % 0 % (0-3); HEMATOCRIT 34.1 % (36.0-47.0); HEMOGLOBIN 11.4 g/dL (12.0-15.5); LYMPH # 0.5 x10^3/uL (1.0-4.8); LYMPH % 12 % (24-48); MEAN CORPUSCULAR HEMOGLOBIN 32 pg (25-35); MEAN CORPUSCULAR HGB CONC 34 g/dL (31-37); MEAN CORPUSCULAR VOLUME 94 fL (79-100); MONO # 0.1 x10^3/uL (0.0-1.1); MONO % 2 % (0-9); NEUT # 3.6 x10^3/uL (1.8-7.7); NEUT % 86 % (31-73); PLATELET COUNT 113 x10^3/uL (140-400); RED BLOOD COUNT 3.63 x10^6/uL (3.50-5.40); RED CELL DISTRIBUTION WIDTH 14.2 % (11.5-14.5); WHITE BLOOD COUNT 4.2 x10^3/uL (4.0-11.0)
[2019-07-09 05:54] LABS: CALCIUM 8.4 mg/dL (8.5-10.1); CREATININE 1.4 mg/dL (0.6-1.0); GFR 36.5; POTASSIUM 4.4 mmol/L (3.5-5.1)
[2019-07-09 06:06] LABS: % BANDS 4 % (0-9); % LYMPHS 10 % (24-48); % MONOS 2 % (0-10); % SEGS 84 % (35-66)
[2019-07-09 06:07] LABS: OVALOCYTES FEW; PLT ESTIMATE DECREASED (ADEQUATE); TEAR DROP CELLS OCC
[2019-07-09 07:00] VITALS: BP 141/64
[2019-07-09] MEDS: IPRATRPIUM/ALBUTEROL 0.5/2.5MG 3 ML NEBU. NEB SCH ×4 (07:10→19:35)
[2019-07-09] MEDS: ESTRADIOL 1 MG TABLET. PO SCH (07:37)
[2019-07-09] MEDS: FUROSEMIDE 20 MG TABLET PO SCH (07:38)
[2019-07-09] MEDS: POTASSIUM CHLORIDE 20 MEQ TABLET.ER. PO SCH ×2 (07:38→21:04)
[2019-07-09] MEDS: ASCORBIC ACID 500 MG TABLET PO SCH (07:38)
[2019-07-09] MEDS: ASPIRIN CHEWABLE 81 MG TABLET. PO SCH (07:38)
[2019-07-09] MEDS: ROFLUMILAST 500 MCG TABLET. PO SCH (07:38)
[2019-07-09] MEDS: CHOLECALCIFEROL (VITAMIN D3) 1,000 UNIT TABLET PO SCH (07:38)
[2019-07-09] MEDS: PANTOPRAZOLE 40 MG TABLET.DR. PO SCH ×2 (07:38→16:10)
[2019-07-09] MEDS: CITALOPRAM 20 MG TABLET. PO SCH (07:39)
[2019-07-09] MEDS: methylPREDNISolone SOD SUCC PF 40 MG/ML VIAL. IV SCH ×2 (07:39→21:05)
[2019-07-09] MEDS: LIDOCAINE (700MG/PATCH) PATCH. TP SCH (07:39)
--- NOTE | 2019-07-09 09:09 | PDOC1 ---
History and Physical Date of Admission Date of Admission DATE: 07/09/19 TIME: 09:08 Identification/Chief Complaint Chief Complaint Shortness of breath History of Present Illness History of Present Illness Ms Schaefer is a 78-year-old female w/ PMHx A-Fib, Anemia, Anxiety, Arrhythmia, Asthma, Constipation, COPD, Depression, GERD, High Cholesterol, Hypertension, Hypothyroid, Renal Disease who presents with complaint of ongoing shortness of breath. Patient states that she has a history of COPD and currently is being treated with antibiotics. Patient states that she is coming in and requesting a shot of Solu-Medrol because she believes that that is the only thing that helps her. She was initially in the [place] ED and was transferred to [facility] for further care. She denies any fever. She does indicate that she has shortness of breath, especially with exertion. She denies any chest pain. She denies any fe alix or chills. She states that symptoms are worsened with exertion. EKG showed sinus rhythm with PACs, CXR showed right port-a-cath and left basilar possible consolidation. Past Medical History Cardiovascular: AFIB, Hyperlipidemia Pulmonary: Asthma, Other GI: GERD Heme/Onc: No pertinent hx Psych: Depression Renal/: Chronic renal insuff Endocrine: Hypothyroidism Past Surgical History Past Surgical History: Appendectomy, Cholecystectomy, Cataract Removal, C- Section, Total knee replacement, Tonsillectomy, Hysterectomy Family History Family History: Hypertension, Other Social History Smoke: No ALCOHOL: none Drugs: None Current Medications Current Medications Current Medications Methylprednisolone Sodium Succinate (SOLU-Medrol 40MG VIAL) 40 mg Q12HR IV Last administered on 07/09/19at 07:39; Start 07/09/19 at 09:00 Albuterol/ Ipratropium (Duoneb) 3 ml RTQID NEB Last administered on 07/09/19at 07:10; Start 07/09/19 at 08:00 Albuterol Sulfate (Ventolin Neb Soln) 2.5 mg PRN Q4HRS PRN NEB SHORTNESS OF BREATH; Start 07/08/19 at 22:15 Guaifenesin/ Codeine Phosphate (Robitussin Ac) 10 ml PRN Q6HRS PRN PO COUGH; Start 07/08/19 at 22:15 Acetaminophen (Tylenol) 650 mg PRN Q6HRS PRN PO mild pain/ fever; Start 07/08/19 at 22:15 Ondansetron HCl (Zofran Odt) 4 mg PRN Q8HRS PRN PO NAUSEA/VOMITING 1ST CHOICE; Start 07/08/19 at 22:15 Alprazolam (Xanax) 0.25 mg PRN TID PRN PO ANXIETY / AGITATION; Start 07/08/19 at 22:15 Ascorbic Acid (Vitamin C) 500 mg DAILY PO Last administered on 07/09/19 07:38; Start 07/09/19 at 09:00 Aspirin (Children'S Aspirin) 81 mg DAILY PO Last administered on 07/09/19 07:38; Start 07/09/19 at 09:00 Atorvastatin Calcium (Lipitor) 20 mg HS PO ; Start 07/09/19 at 21:00 Cetirizine HCl (ZyrTEC) 10 mg QHS PO ; Start 07/09/19 at 21:00 Estradiol (Estrace) 1 mg DAILY PO Last administered on 07/09/19at 07:37; Start 07/09/19 at 09:00 Furosemide (Lasix) 20 mg DAILY PO Last administered on 07/09/19 07:38; Start 07/09/19 at 09:00 Levothyroxine Sodium (Synthroid) 75 mcg DAILY06 PO Last administered on 07/09/19at 04:57; Start 07/09/19 at 06:00 Lidocaine (Lidoderm) 1 patch DAILY TP ; Start 07/09/19 at 09:00 Montelukast Sodium (Singulair) 10 mg HS PO ; Start 07/09/19 at 21:00 Ondansetron HCl (Zofran Odt) 4 mg BID PRN PO NAUSEA/VOMITING; Start 07/08/19 at 22:15; Status UNV Pantoprazole Sodium (Protonix) 40 mg BIDAC PO Last administered on 07/09/19 07:38; Start 07/09/19 at 07:30 Potassium Chloride (Klor-Con) 20 meq BID PO Last administered on 07/09/19 07:38; Start 07/09/19 at 09:00 Roflumilast (Daliresp) 500 mcg DAILY PO Last administered on 07/09/19 07:38; Start 07/09/19 at 09:00 Tramadol HCl (Ultram) 50 mg PRN Q6HRS PRN PO MODERATE PAIN 4-6; Start 07/08/19 at 22:15 Vitamin D (Vitamin D3) 4,000 unit DAILY PO Last administered on 07/09/19at 07:38; Start 07/09/19 at 09:00 Citalopram Hydrobromide (CeleXA) 40 mg DAILY PO Last administered on 07/09/19at 07:39; Start 07/09/19 at 09:00 Meclizine HCl (Antivert) 25 mg PRN TID PRN PO DIZZINESS; Start 07/08/19 at 23:00 Active Scripts Active Reported Tramadol Hcl 50 Mg Tablet 50 Mg PO Q6HRS PRN Aspirin 81 Mg Tab.chew 1 Tab PO DAILY Daliresp (Roflumilast) 500 Mcg Tablet 1 Tab PO DAILY Atorvastatin Calcium 20 Mg Tablet 20 Mg PO HS Lexapro (Escitalopram Oxalate) 20 Mg Tablet 20 Mg PO DAILY Furosemide 20 Mg Tablet 1 Tab PO DAILY Lidocaine PATCH (Lidocaine) 1 Each Adh..patch 1 Each TP DAILY Promethazine-Codeine Syrup (Promethazine Hcl/Codeine) 118 Ml Syrup 5 Ml PO Q4- 6HRS Zofran Odt (Ondansetron) 4 Mg Tab.rapdis 4 Mg PO BID PRN Meclizine Hcl 25 Mg Tablet 1 Tab PO PRN TID Albuterol Sulfate Hfa Inhaler (Albuterol Sulfate) 8.5 Gm Hfa.aer.ad 2 Puff INH Q4HRS PRN Potassium Chloride 20 Meq Tab.er.prt 1 Tab PO BID All Day Allergy Relief (Cetirizine Hcl) 10 Mg Tablet 10 Mg PO QHS Promethazine-Codeine Syrup (Promethazine Hcl/Codeine) 118 Ml Syrup 5 Ml PO Q4HRS Pantoprazole Sodium (Pantoprazole Sodium) 40 Mg Tablet.dr 40 Mg PO BIDAC Singulair Tablet (Montelukast Sodium) 10 Mg Tablet 10 Mg PO HS Levothyroxine Sodium 75 Mcg Tablet 1 Tab PO DAILY Duoneb 0.5-3(2.5) Mg/3 Ml (Albuterol/Ipratropium) 3 Ml Ampul.neb 3 Ml IH QID Advair 500-50 Diskus (Fluticasone/Salmeterol) 1 Each Disk.w.dev 1 Puff IH BID Estradiol 1 Mg Tablet 1 Tab PO DAILY Vitamin D3 (Cholecalciferol (Vitamin D3)) 4,000 Unit Capsule 4,000 Unit PO DAILY Ascorbic Acid 500 Mg Tablet 500 Mg PO DAILY Alprazolam 0.25 Mg Tablet 0.25 Mg PO PRN TID PRN Allergies Allergies: Coded Allergies: Tetracyclines (Verified Allergy, Intermediate, Hives, 01/24/15) adhesive (Verified Allergy, Intermediate, Rash, 01/24/15) amoxicillin (Verified Allergy, Intermediate, 07/08/19) cefotaxime (Verified Allergy, Intermediate, Hives, 01/24/15) ciprofloxacin (Verified Allergy, Intermediate, 07/08/19) clavulanic acid (Verified Allergy, Intermediate, 07/08/19) clindamycin (Verified Allergy, Intermediate, Hives, 01/24/15) vancomycin (Verified Allergy, Intermediate, Hives, 01/23/15) ROS General: YES: Fatigue, Malaise; No: Chills, Night Sweats, Appetite, Other PSYCHOLOGICAL ROS: No: Anxiety, Behavioral Disorder, Concentration difficultie, Decreased libido, Depression, Disorientation, Hallucinations, Hostility, Irritablity, Memory difficulties, Mood Swings, Obsessive thoughts, Physical abuse, Sexual abuse, Sleep disturbances, Suicidal ideation, Other Eyes: No Blurry vision, No Decreased vision, No Double vision, No Dry eyes, No Excessive tearing, No Eye Pain, No Itchy Eyes, No Loss of vision, No Photophobia, No Scotomata, No Uses contacts, No Uses glasses, No Other HEENT: No: Heacaches, Visual Changes, Hearing change, Nasal congestion, Nasal discharge, Oral lesions, Sinus pain, Sore Throat, Epistaxis, Sneezing, Snoring, Tinnitus, Vertigo, Vocal changes, Other ALLERGY AND IMMUNOLOGY: No: Hives, Insect Bite Sensitivity, Itchy/Watery Eyes, Nasal Congestion, Post Nasal Drip, Seasonal Allergies, Other Hematological and Lymphatic: No: Bleeding Problems, Blood Clots, Blood Transfusions, Brusing, Night Sweats, Pallor, Swollen Lymph Nodes, Other ENDOCRINE: No: Breast Changes, Galactorrhea, Hair Pattern Changes, Hot Flashes, Malaise/lethargy, Mood Swings, Palpitations, Polydipsia/polyuria, Skin Changes, Temperature Intolerance, Unexpected Weight Changes, Other Breast: No New/Changing Breast Lumps, No Nipple changes, No Nipple discharge, No Other Respiratory: YES: Cough, Shortness of breath, SOB with excertion, Tachypnea, Wheezing; No: Hemoptysis, Orthopnea, Pleuritic Pain, Sputum Changes, Stridor, Other Cardiovascular: No Chest Pain, No Palpitations, No Orthopnea, No Paroxysmal Noc. Dyspnea, No Edema, No Lt Headedness, No Other Gastrointestinal: No Nausea, No Vomiting, No Abdominal Pain, No Diarrhea, No Constipation, No Melena, No Hematochezia, No Other Genitourinary: No Dysuria, No Frequency, No Incontinence, No Hematuria, No Retention, No Discharge, No Urgency, No Pain, No Flank Pain, No Other, No , No , No , No , No , No , No Musculoskeletal: No Gait Disturbance, No Joint Pain, No Joint Stiffness, No Joint Swelling, No Muscle Pain, No Muscular Weakness, No Pain In:, No Swelling In:, No Other Neurological: No Behavorial Changes, No Bowel/Bladder ControlChng, No Confusion, No Dizziness, No Gait Disturbance, No Headaches, No Impaired Coord/balance, No Memory Loss, No Numbness/Tingling, No Seizures, No Speech Problems, No Tremors, No Visual Changes, No Weakness, No Other Skin: No Dry Skin, No Eczema, No Hair Changes, No Lumps, No Mole Changes, No M ottling, No Nail Changes, No Pruritus, No Rash, No Skin Lesion Changes, No Other, No Acne Physical Exam General: Alert, Oriented X3, Cooperative, No acute distress HEENT: Atraumatic, PERRLA, EOMI, Mucous membr. moist/pink Lungs: Other (Wheezing, right and left basilar crackles and right basilar rhonchi) Heart: S1S2, RRR, no gallops, no murmurs Abdomen: Normal bowel sounds, Soft, No tenderness, No hepatosplenomegaly, No masses Extremities: No clubbing, No cyanosis, No edema, Normal pulses, No tenderness/swelling Skin: No rashes, No breakdown, No significant lesion Neuro: Normal gait, Normal speech, Strength at 5/5 X4 ext, Normal tone, Sensation intact, Cranial nerves 3-12 NL, Reflexes 2+ Psych/Mental Status: Mental status NL, Mood NL Vitals Vitals Vital Signs Date Time Temp Pulse Resp B/P (MAP) Pulse Ox O2 Delivery O2 Flow Rate FiO2 07/09/19 08:00 Nasal Cannula 2.0 07/09/19 07:11 96 07/09/19 07:00 97.7 86 18 141/64 (89) 97.7 Labs Labs Laboratory Tests Test 07/09/19 05:31 White Blood Count 4.2 x10^3/uL (4.0-11.0) Red Blood Count 3.63 x10^6/uL (3.50-5.40) Hemoglobin 11.4 g/dL (12.0-15.5) Hematocrit 34.1 % (36.0-47.0) Mean Corpuscular Volume 94 fL (79-100) Mean Corpuscular Hemoglobin 32 pg (25-35) Mean Corpuscular Hemoglobin Concent 34 g/dL (31-37) Red Cell Distribution Width 14.2 % (11.5-14.5) Platelet Count 113 x10^3/uL (140-400) Neutrophils (%) (Auto) 86 % (31-73) Lymphocytes (%) (Auto) 12 % (24-48) Monocytes (%) (Auto) 2 % (0-9) Eosinophils (%) (Auto) 0 % (0-3) Basophils (%) (Auto) 0 % (0-3) Neutrophils # (Auto) 3.6 x10^3/uL (1.8-7.7) Lymphocytes # (Auto) 0.5 x10^3/uL (1.0-4.8) Monocytes # (Auto) 0.1 x10^3/uL (0.0-1.1) Eosinophils # (Auto) 0.0 x10^3/uL (0.0-0.7) Basophils # (Auto) 0.0 x10^3/uL (0.0-0.2) Segmented Neutrophils % 84 % (35-66) Band Neutrophils % 4 % (0-9) Lymphocytes % 10 % (24-48) Monocytes % 2 % (0-10) Platelet Estimate Decreased (ADEQUATE) Tear Drop Cells Occ Ovalocytes Few Sodium Level 143 mmol/L (136-145) Potassium Level 4.4 mmol/L (3.5-5.1) Chloride Level 110 mmol/L (98-107) Carbon Dioxide Level 26 mmol/L (21-32) Anion Gap 7 (6-14) Blood Urea Nitrogen 15 mg/dL (7-20) Creatinine 1.4 mg/dL (0.6-1.0) Estimated GFR (Cockcroft-Gault) 36.5 Glucose Level 126 mg/dL (70-99) Calcium Level 8.4 mg/dL (8.5-10.1) Laboratory Tests Test 07/09/19 05:31 White Blood Count 4.2 x10^3/uL (4.0-11.0) Red Blood Count 3.63 x10^6/uL (3.50-5.40) Hemoglobin 11.4 g/dL (12.0-15.5) Hematocrit 34.1 % (36.0-47.0) Mean Corpuscular Volume 94 fL (79-100) Mean Corpuscular Hemoglobin 32 pg (25-35) Mean Corpuscular Hemoglobin Concent 34 g/dL (31-37) Red Cell Distribution Width 14.2 % (11.5-14.5) Platelet Count 113 x10^3/uL (140-400) Neutrophils (%) (Auto) 86 % (31-73) Lymphocytes (%) (Auto) 12 % (24-48) Monocytes (%) (Auto) 2 % (0-9) Eosinophils (%) (Auto) 0 % (0-3) Basophils (%) (Auto) 0 % (0-3) Neutrophils # (Auto) 3.6 x10^3/uL (1.8-7.7) Lymphocytes # (Auto) 0.5 x10^3/uL (1.0-4.8) Monocytes # (Auto) 0.1 x10^3/uL (0.0-1.1) Eosinophils # (Auto) 0.0 x10^3/uL (0.0-0.7) Basophils # (Auto) 0.0 x10^3/uL (0.0-0.2) Segmented Neutrophils % 84 % (35-66) Band Neutrophils % 4 % (0-9) Lymphocytes % 10 % (24-48) Monocytes % 2 % (0-10) Platelet Estimate Decreased (ADEQUATE) Tear Drop Cells Occ Ovalocytes Few Sodium Level 143 mmol/L (136-145) Potassium Level 4.4 mmol/L (3.5-5.1) Chloride Level 110 mmol/L (98-107) Carbon Dioxide Level 26 mmol/L (21-32) Anion Gap 7 (6-14) Blood Urea Nitrogen 15 mg/dL (7-20) Creatinine 1.4 mg/dL (0.6-1.0) Estimated GFR (Cockcroft-Gault) 36.5 Glucose Level 126 mg/dL (70-99) Calcium Level 8.4 mg/dL (8.5-10.1) Images Images CXR - Right chest port-a-cath, left basilar airspace disease VTE Prophylaxis Ordered VTE Prophylaxis Devices: No VTE Pharmacological Prophylaxi: Yes Assessment/Plan Assessment/Plan A/P: Acute COPD exacerbation - will treat with IV steroids, aggressive nebs. Consulted pulmonology for h/o mucous plugging Abnormal CXR - likely for bronchscopy in AM A-Fib - sinus currently Anemia - likely of chronic disease. Will monitor Anxiety with depression - will cont meds Constipation - will give bowel regimen COPD - with acute exacerbation, as above GERD - ppi High Cholesterol - cont statin Hypertension - cont meds Hypothyroid - cont meds Chronic Renal Disease - cr 1.6, near baseline FEN - general diet PPX - Lovenox DNR/DNI Dispo - inpatient for acute hypoxia related to acute COPD exacerbation POONAM MARTINEZ MD Jul 09, 2019 09:09
[2019-07-09 11:00] VITALS: BP 130/52
[2019-07-09 15:00] VITALS: BP 98/65
[2019-07-09] MEDS: ENOXAPARIN 30 MG/0.3 ML SYRINGE. SQ SCH (16:00)
--- NOTE | 2019-07-09 16:36 | PDOC ---
PULMONARY PROGRESS NOTES Vitals Vital Signs Date Time Temp Pulse Resp B/P (MAP) Pulse Ox O2 Delivery O2 Flow Rate FiO2 07/09/19 15:24 Nasal Cannula 2.0 07/09/19 15:00 98.2 83 18 98/65 (76) 96 98.2 General: Alert Lungs: Clear Cardiovascular: S1, S2 Abdomen: Soft Extremities: No Edema Labs Laboratory Tests Test 07/09/19 05:31 White Blood Count 4.2 x10^3/uL (4.0-11.0) Red Blood Count 3.63 x10^6/uL (3.50-5.40) Hemoglobin 11.4 g/dL (12.0-15.5) Hematocrit 34.1 % (36.0-47.0) Mean Corpuscular Volume 94 fL (79-100) Mean Corpuscular Hemoglobin 32 pg (25-35) Mean Corpuscular Hemoglobin Concent 34 g/dL (31-37) Red Cell Distribution Width 14.2 % (11.5-14.5) Platelet Count 113 x10^3/uL (140-400) Neutrophils (%) (Auto) 86 % (31-73) Lymphocytes (%) (Auto) 12 % (24-48) Monocytes (%) (Auto) 2 % (0-9) Eosinophils (%) (Auto) 0 % (0-3) Basophils (%) (Auto) 0 % (0-3) Neutrophils # (Auto) 3.6 x10^3/uL (1.8-7.7) Lymphocytes # (Auto) 0.5 x10^3/uL (1.0-4.8) Monocytes # (Auto) 0.1 x10^3/uL (0.0-1.1) Eosinophils # (Auto) 0.0 x10^3/uL (0.0-0.7) Basophils # (Auto) 0.0 x10^3/uL (0.0-0.2) Segmented Neutrophils % 84 % (35-66) Band Neutrophils % 4 % (0-9) Lymphocytes % 10 % (24-48) Monocytes % 2 % (0-10) Platelet Estimate Decreased (ADEQUATE) Tear Drop Cells Occ Ovalocytes Few Sodium Level 143 mmol/L (136-145) Potassium Level 4.4 mmol/L (3.5-5.1) Chloride Level 110 mmol/L (98-107) Carbon Dioxide Level 26 mmol/L (21-32) Anion Gap 7 (6-14) Blood Urea Nitrogen 15 mg/dL (7-20) Creatinine 1.4 mg/dL (0.6-1.0) Estimated GFR (Cockcroft-Gault) 36.5 Glucose Level 126 mg/dL (70-99) Calcium Level 8.4 mg/dL (8.5-10.1) Laboratory Tests Test 07/09/19 05:31 White Blood Count 4.2 x10^3/uL (4.0-11.0) Red Blood Count 3.63 x10^6/uL (3.50-5.40) Hemoglobin 11.4 g/dL (12.0-15.5) Hematocrit 34.1 % (36.0-47.0) Mean Corpuscular Volume 94 fL (79-100) Mean Corpuscular Hemoglobin 32 pg (25-35) Mean Corpuscular Hemoglobin Concent 34 g/dL (31-37) Red Cell Distribution Width 14.2 % (11.5-14.5) Platelet Count 113 x10^3/uL (140-400) Neutrophils (%) (Auto) 86 % (31-73) Lymphocytes (%) (Auto) 12 % (24-48) Monocytes (%) (Auto) 2 % (0-9) Eosinophils (%) (Auto) 0 % (0-3) Basophils (%) (Auto) 0 % (0-3) Neutrophils # (Auto) 3.6 x10^3/uL (1.8-7.7) Lymphocytes # (Auto) 0.5 x10^3/uL (1.0-4.8) Monocytes # (Auto) 0.1 x10^3/uL (0.0-1.1) Eosinophils # (Auto) 0.0 x10^3/uL (0.0-0.7) Basophils # (Auto) 0.0 x10^3/uL (0.0-0.2) Segmented Neutrophils % 84 % (35-66) Band Neutrophils % 4 % (0-9) Lymphocytes % 10 % (24-48) Monocytes % 2 % (0-10) Platelet Estimate Decreased (ADEQUATE) Tear Drop Cells Occ Ovalocytes Few Sodium Level 143 mmol/L (136-145) Potassium Level 4.4 mmol/L (3.5-5.1) Chloride Level 110 mmol/L (98-107) Carbon Dioxide Level 26 mmol/L (21-32) Anion Gap 7 (6-14) Blood Urea Nitrogen 15 mg/dL (7-20) Creatinine 1.4 mg/dL (0.6-1.0) Estimated GFR (Cockcroft-Gault) 36.5 Glucose Level 126 mg/dL (70-99) Calcium Level 8.4 mg/dL (8.5-10.1) Medications Active Scripts Medications Dose Route/Sig Max Daily Dose Days Date Category Tramadol Hcl 50 Mg Tablet 50 Mg PO Q6HRS PRN 10/09/18 Reported Aspirin 81 Mg Tab.chew 1 Tab PO DAILY 10/09/18 Reported Daliresp (Roflumilast) 500 Mcg Tablet 1 Tab PO DAILY 10/09/18 Reported Atorvastatin Calcium 20 Mg Tablet 20 Mg PO HS 10/09/18 Reported Lexapro (Escitalopram Oxalate) 20 Mg Tablet 20 Mg PO DAILY 10/09/18 Reported Furosemide 20 Mg Tablet 1 Tab PO DAILY 10/09/18 Reported Lidocaine PATCH (Lidocaine) 1 Each Adh..patch 1 Each TP DAILY 04/02/17 Reported Promethazine-Codeine Syrup (Promethazine Hcl/Codeine) 118 Ml Syrup 5 Ml PO Q4-6HRS 04/17/15 Reported Zofran Odt (Ondansetron) 4 Mg Tab.rapdis 4 Mg PO BID PRN 04/17/15 Reported Meclizine Hcl 25 Mg Tablet 1 Tab PO PRN TID 04/17/15 Reported Albuterol Sulfate Hfa Inhaler (Albuterol Sulfate) 8.5 Gm Hfa.aer.ad 2 Puff INH Q4HRS PRN 04/17/15 Reported Potassium Chloride 20 Meq Tab.er.prt 1 Tab PO BID 04/17/15 Reported All Day Allergy Relief (Cetirizine Hcl) 10 Mg Tablet 10 Mg PO QHS 04/17/15 Reported Promethazine-Codeine Syrup (Promethazine Hcl/Codeine) 118 Ml Syrup 5 Ml PO Q4HRS 01/22/15 Reported Pantoprazole Sodium (Pantoprazole Sodium) 40 Mg Tablet.dr 40 Mg PO BIDAC 01/22/15 Reported Singulair Tablet (Montelukast Sodium) 10 Mg Tablet 10 Mg PO HS 01/22/15 Reported Levothyroxine Sodium 75 Mcg Tablet 1 Tab PO DAILY 01/22/15 Reported Duoneb 0.5-3(2.5) Mg/3 Ml (Albuterol/Ipratropium) 3 Ml Ampul.neb 3 Ml IH QID 01/22/15 Reported Advair 500-50 Diskus (Fluticasone/Salmeterol) 1 Each Disk.w.dev 1 Puff IH BID 01/22/15 Reported Estradiol 1 Mg Tablet 1 Tab PO DAILY 01/22/15 Reported Vitamin D3 (Cholecalciferol (Vitamin D3)) 4,000 Unit Capsule 4,000 Unit PO DAILY 01/22/15 Reported Ascorbic Acid 500 Mg Tablet 500 Mg PO DAILY 01/22/15 Reported Alprazolam 0.25 Mg Tablet 0.25 Mg PO PRN TID PRN 01/22/15 Reported Impression . WILL PROCEED WITH BRONCH IN AM RULE OUT EOSINOPHIC PNEUMONIA FOR NOW TREAT FOR AECOPD/ASTHMA KIRA SALGUERO MD Jul 09, 2019 16:36
[2019-07-09 19:00] VITALS: BP 121/63
[2019-07-09] MEDS: MONTELUKAST SODIUM 10 MG TABLET. PO SCH (21:04)
[2019-07-09] MEDS: ATORVASTATIN CALCIUM 20 MG TABLET PO SCH (21:04)
[2019-07-09] MEDS: CETIRIZINE HCL 10 MG TABLET. PO SCH (21:06)
[2019-07-09] MEDS: diphenhydrAMINE 50 MG/ML VIAL IVP PRN (22:45)
[2019-07-09 22:51] VITALS: BP 144/68
[2019-07-10] MEDS: ALPRAZolam 0.25 MG TABLET PO PRN (00:18)
--- NOTE | 2019-07-10 02:16 | CONS ---
DATE OF CONSULTATION: 07/09/2019 ATTENDING PHYSICIAN: Dr. Ratliff. REASON FOR CONSULTATION: The patient seen in pulmonary consultation at the request of Dr. Ratliff for progressive dyspnea and recurrent mucus plugging. HISTORY OF PRESENT ILLNESS: The patient is a 78-year-old well known to me from previous hospitalization. She has a history of COPD with an asthma component, recurrent bouts of mucus plugging, recurrent bouts of acute bronchitis. She has been evaluated in the past. She has had an elevated eosinophilic count peripherally. She actually was last seen at the by the director international. I do not have the correspondence. The patient presented to [facility] in [place] with significant shortness of breath. She underwent a CT chest. It was reported that the CT revealed the recurrent mucus plugging. She presented and she has been started on some IV antibiotics and IV Solu-Medrol. I was asked to see her in consultation. She denies fever or chills. No nausea, vomiting, diarrhea. She does have paroxysmal coughing spell to the point where she almost passes out. PAST MEDICAL HISTORY: Remarkable for COPD with an asthma component, recurrent bouts of acute bronchitis, chronic anemia, chronic atrial fibrillation, arrhythmia, constipation, COPD, depression, gastroesophageal reflux, hyperlipidemia, hypertension, hypothyroidism. PAST SURGICAL HISTORY: Status post appendectomy, cholecystectomy, , hysterectomy, knee replacement, tonsillectomy. SOCIAL HISTORY: She is a nonsmoker, denies any significant alcohol intake. FAMILY HISTORY: Remarkable for hypertension. ALLERGIES: TO TETRACYCLINE, ADHESIVE TAPE, AMOXICILLIN, CEFOTAXIME, CIPROFLOXACIN, CLAVULANIC ACID, CLINDAMYCIN AND VANCOMYCIN. REVIEW OF SYSTEMS: CONSTITUTIONAL: No fever or chills. EYES: No change in visual acuity. HENT: No nasal congestion or sore throat. PULMONARY: As indicated above. CARDIOVASCULAR: No chest pain or pressure. GASTROINTESTINAL: No nausea, vomiting, diarrhea. GENITOURINARY: No dysuria or frequency. MUSCULOSKELETAL: No localized muscle aches or joint pains. SKIN: No new skin rashes. NEUROLOGIC: No headaches, diplopia or blurred vision. PHYSICAL EXAMINATION: VITAL SIGNS: The patient was currently on 2 L of oxygen supplementation, saturation was greater than 92%. T-max was 98.2. HEENT: Eyes, the sclerae were nonicteric. NECK: Jugular venous distention was not elevated. No lymphadenopathy. CHEST: Full expansion. LUNGS: She has scattered rhonchi with a prolonged expiratory phase and wheezing. CARDIOVASCULAR: Regular rate and rhythm with S1, S2. No S3. ABDOMEN: Soft, nontender, nondistended. EXTREMITIES: No clubbing, cyanosis or edema. NEUROLOGICAL: The patient was awake, alert, following commands. A detailed neuro exam was not performed. LABORATORY DATA: Reviewed. White count was normal. Hemoglobin and hematocrit were noted. Peripheral eosinophilia was within normal limits. Electrolytes were noted. IMPRESSION: 1. Acute hypoxemic respiratory failure. 2. Acute recurrent mucus plugging. 3. Acute nonspecific bronchitis. 4. 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 PLAN: 1. We will proceed with a diagnostic bronchoscopy. Risks, benefits and alternatives reviewed with the patient. She has consented. 2. Continue home medications. 3. Continue current nebulized treatments and steroids. I do appreciate the privilege in sharing in the patient's care. KIRA SAGLUERO MD DR: AUDREY/acosta JOB#: [id number] / [id number]
[2019-07-10 03:00] VITALS: BP 129/63
[2019-07-10] MEDS: LEVOTHYROXINE 75 MCG TABLET PO SCH (06:00)
[2019-07-10 07:00] VITALS: BP 106/65
[2019-07-10] MEDS: PANTOPRAZOLE 40 MG TABLET.DR. PO SCH ×2 (07:30→16:49)
[2019-07-10] MEDS: IPRATRPIUM/ALBUTEROL 0.5/2.5MG 3 ML NEBU. NEB SCH ×4 (08:02→20:32)
[2019-07-10] MEDS ORDERED: LIDOCAINE 4% TOPICAL 50 ML SOLUTION. MM PRN (08:15)
[2019-07-10] MEDS ORDERED: LIDOCAINE 2% VISCOUS 100 ML BOTTLE. MM PRN (08:15)
[2019-07-10] MEDS ORDERED: LIDOCAINE 1% Multi-Dose 20 ML VIAL. INJ PRN (08:15)
[2019-07-10] MEDS ORDERED: EPINEPHrine 1 MG/ML VIAL INJ PRN (08:15)
[2019-07-10] MEDS ORDERED: ONDANSETRON PF 4 MG/2 ML VIAL. IVP PRN (08:30)
[2019-07-10] MEDS ORDERED: guaiFENesin DM 200MG/20MG 10 ML SYRUP PO PRN (08:30)
[2019-07-10] MEDS: methylPREDNISolone SOD SUCC PF 40 MG/ML VIAL. IV SCH ×2 (08:34→21:21)
[2019-07-10] MEDS: BENZONATATE 100 MG CAPSULE. PO SCH ×3 (09:00→21:21)
[2019-07-10] MEDS: LIDOCAINE (700MG/PATCH) PATCH. TP SCH (09:00)
[2019-07-10] MEDS: POTASSIUM CHLORIDE 20 MEQ TABLET.ER. PO SCH ×2 (09:00→21:21)
[2019-07-10] MEDS ORDERED: LIDOCAINE 4% TOPICAL 50 ML SOLUTION. ONE (09:04)
[2019-07-10] MEDS ORDERED: EPINEPHrine 1 MG/ML VIAL ONE (09:04)
[2019-07-10] MEDS ORDERED: LIDOCAINE 2% VISCOUS 100 ML BOTTLE. ONE (09:04)
[2019-07-10] MEDS ORDERED: LIDOCAINE 1% Multi-Dose 20 ML VIAL. ONE (09:04)
--- NOTE | 2019-07-10 10:30 | PDOC ---
PROGRESS NOTES Chief Complaint Chief Complaint 1. Acute hypoxemic respiratory failure. 2. Acute recurrent mucus plugging. 3. Acute nonspecific bronchitis. 4. 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 History of Present Illness History of Present Illness I got the sign out phone call from the outside facility on admission, ahs been sick/worse this apst 2 weeks SHe had the tree-in -bud appearance on CT chest, lost of abx allergy (hives for all) Needed pulmo and bronch so transferred here She is for bronch 11 AM today, known pt dr Cortez PLAN: Strat merrem - 1 gm IV q8 - dw pulmo Bronch later Tentative plans home in AM Dw at bedside, seemingly no PT needs NOrmla WBC< no fevers Vitals Vitals Vital Signs Date Time Temp Pulse Resp B/P (MAP) Pulse Ox O2 Delivery O2 Flow Rate FiO2 07/10/19 09:00 Room Air 07/10/19 08:03 99 07/10/19 07:00 98.1 73 18 106/65 (79) 98.1 07/10/19 03:00 2.0 Physical Exam General: Alert, Oriented X3, Cooperative, No acute distress Lungs: Clear Abdomen: Normal bowel sounds, Soft, No tenderness, No hepatosplenomegaly, No masses Extremities: No clubbing, No cyanosis, No edema, Normal pulses, No tenderness/swelling Skin: No rashes, No breakdown, No significant lesion Review of Systems Review of Systems cough, no fevers, no inc soa, rest 14 pt neg Comment Review of Relevant I have reviewed the following items will (where applicable) has been applied. Labs Laboratory Tests Test 07/09/19 05:31 White Blood Count 4.2 x10^3/uL (4.0-11.0) Red Blood Count 3.63 x10^6/uL (3.50-5.40) Hemoglobin 11.4 g/dL (12.0-15.5) Hematocrit 34.1 % (36.0-47.0) Mean Corpuscular Volume 94 fL (79-100) Mean Corpuscular Hemoglobin 32 pg (25-35) Mean Corpuscular Hemoglobin Concent 34 g/dL (31-37) Red Cell Distribution Width 14.2 % (11.5-14.5) Platelet Count 113 x10^3/uL (140-400) Neutrophils (%) (Auto) 86 % (31-73) Lymphocytes (%) (Auto) 12 % (24-48) Monocytes (%) (Auto) 2 % (0-9) Eosinophils (%) (Auto) 0 % (0-3) Basophils (%) (Auto) 0 % (0-3) Neutrophils # (Auto) 3.6 x10^3/uL (1.8-7.7) Lymphocytes # (Auto) 0.5 x10^3/uL (1.0-4.8) Monocytes # (Auto) 0.1 x10^3/uL (0.0-1.1) Eosinophils # (Auto) 0.0 x10^3/uL (0.0-0.7) Basophils # (Auto) 0.0 x10^3/uL (0.0-0.2) Segmented Neutrophils % 84 % (35-66) Band Neutrophils % 4 % (0-9) Lymphocytes % 10 % (24-48) Monocytes % 2 % (0-10) Platelet Estimate Decreased (ADEQUATE) Tear Drop Cells Occ Ovalocytes Few Sodium Level 143 mmol/L (136-145) Potassium Level 4.4 mmol/L (3.5-5.1) Chloride Level 110 mmol/L (98-107) Carbon Dioxide Level 26 mmol/L (21-32) Anion Gap 7 (6-14) Blood Urea Nitrogen 15 mg/dL (7-20) Creatinine 1.4 mg/dL (0.6-1.0) Estimated GFR (Cockcroft-Gault) 36.5 Glucose Level 126 mg/dL (70-99) Calcium Level 8.4 mg/dL (8.5-10.1) Medications Current Medications Methylprednisolone Sodium Succinate (SOLU-Medrol 40MG VIAL) 40 mg Q12HR IV Last administered on 07/10/19at 08:34; Start 07/09/19 at 09:00 Albuterol/ Ipratropium (Duoneb) 3 ml RTQID NEB Last administered on 07/10/19at 08:02; Start 07/09/19 at 08:00 Albuterol Sulfate (Ventolin Neb Soln) 2.5 mg PRN Q4HRS PRN NEB SHORTNESS OF BREATH; Start 07/08/19 at 22:15 Guaifenesin/ Codeine Phosphate (Robitussin Ac) 10 ml PRN Q6HRS PRN PO COUGH Last administered on 07/09/19at 17:50; Start 07/08/19 at 22:15 Acetaminophen (Tylenol) 650 mg PRN Q6HRS PRN PO mild pain/ fever; Start 07/08/19 at 22:15 Ondansetron HCl (Zofran Odt) 4 mg PRN Q8HRS PRN PO NAUSEA/VOMITING 1ST CHOICE; Start 07/08/19 at 22:15 Alprazolam (Xanax) 0.25 mg PRN TID PRN PO ANXIETY / AGITATION Last administered on 07/10/19 00:18; Start 07/08/19 at 22:15 Ascorbic Acid (Vitamin C) 500 mg DAILY PO Last administered on 07/09/19 07:38; Start 07/09/19 at 09:00 Aspirin (Children'S Aspirin) 81 mg DAILY PO Last administered on 07/09/19 07:38; Start 07/09/19 at 09:00 Atorvastatin Calcium (Lipitor) 20 mg HS PO Last administered on 07/09/19 21:04; Start 07/09/19 at 21:00 Cetirizine HCl (ZyrTEC) 10 mg QHS PO Last administered on 07/09/19 21:06; Start 07/09/19 at 21:00 Estradiol (Estrace) 1 mg DAILY PO Last administered on 07/09/19 07:37; Start 07/09/19 at 09:00 Furosemide (Lasix) 20 mg DAILY PO Last administered on 07/09/19 07:38; Start 07/09/19 at 09:00 Levothyroxine Sodium (Synthroid) 75 mcg DAILY06 PO Last administered on 07/09/19 04:57; Start 07/09/19 at 06:00 Lidocaine (Lidoderm) 1 patch DAILY TP ; Start 07/09/19 at 09:00 Montelukast Sodium (Singulair) 10 mg HS PO Last administered on 07/09/19 21:04; Start 07/09/19 at 21:00 Ondansetron HCl (Zofran Odt) 4 mg BID PRN PO NAUSEA/VOMITING; Start 07/08/19 at 22:15; Status UNV Pantoprazole Sodium (Protonix) 40 mg BIDAC PO Last administered on 07/09/19at 16:10; Start 07/09/19 at 07:30 Potassium Chloride (Klor-Con) 20 meq BID PO Last administered on 07/09/19at 21:04; Start 07/09/19 at 09:00 Roflumilast (Daliresp) 500 mcg DAILY PO Last administered on 07/09/19at 07:38; Start 07/09/19 at 09:00 Tramadol HCl (Ultram) 50 mg PRN Q6HRS PRN PO MODERATE PAIN 4-6; Start 07/08/19 at 22:15 Vitamin D (Vitamin D3) 4,000 unit DAILY PO Last administered on 07/09/19at 07:38; Start 07/09/19 at 09:00 Citalopram Hydrobromide (CeleXA) 40 mg DAILY PO Last administered on 07/09/19at 07:39; Start 07/09/19 at 09:00 Meclizine HCl (Antivert) 25 mg PRN TID PRN PO DIZZINESS; Start 07/08/19 at 23:00 Enoxaparin Sodium (Lovenox 30mg Syringe) 30 mg Q24H SQ ; Start 07/09/19 at 16:00 Diphenhydramine HCl (Benadryl) 50 mg PRN Q8HRS PRN IVP ITCHING Last administered on 07/09/19at 22:45; Start 07/09/19 at 22:45 Lidocaine HCl (Lidocaine 2% Viscous) 100 ml PRN 1X PRN MM MOUTH PAIN; Start 07/10/19 at 08:15; Stop 07/11/19 at 08:14 Lidocaine HCl (Lidocaine 1% 20ml Vial) 20 ml PRN 1X PRN INJ SEE COMMENTS; Start 07/10/19 at 08:15; Stop 07/11/19 at 08:14 Epinephrine HCl (Adrenalin) 1 mg PRN 1X PRN INJ SEE COMMENTS; Start 07/10/19 at 08:15; Stop 07/11/19 at 08:14 Lidocaine HCl 50 ml PRN 1X PRN MM SEE COMMENTS; Start 07/10/19 at 08:15; Stop 07/11/19 at 08:14 Guaifenesin (Robitussin Dm) 10 ml PRN Q6HRS PRN PO COUGH; Start 07/10/19 at 08:30 Ondansetron HCl (Zofran) 4 mg PRN Q6HRS PRN IVP NAUSEA/VOMITING; Start 07/10/19 at 08:30 Benzonatate (Tessalon Perle) 100 mg [id number] PO ; Start 07/10/19 at 09:00 Meropenem 1 gm/ Sodium Chloride 100 ml @ 200 mls/hr Q12HR IV ; Start 07/10/19 at 09:00 Epinephrine HCl (Adrenalin) 1 mg STK-MED ONCE .ROUTE ; Start 07/10/19 at 09:04; Stop 07/10/19 at 09:05; Status DC Lidocaine HCl (Lidocaine 1% 20ml Vial) 20 ml STK-MED ONCE .ROUTE ; Start 07/10/19 at 09:04; Stop 07/10/19 at 09:05; Status DC Lidocaine HCl (Lidocaine 2% Viscous) 100 ml STK-MED ONCE .ROUTE ; Start 07/10/19 at 09:04; Stop 07/10/19 at 09:05; Status DC Lidocaine HCl 50 ml STK-MED ONCE .ROUTE ; Start 07/10/19 at 09:04; Stop 07/10/19 at 09:05; Status DC Active Scripts Active Reported Tramadol Hcl 50 Mg Tablet 50 Mg PO Q6HRS PRN Aspirin 81 Mg Tab.chew 1 Tab PO DAILY Daliresp (Roflumilast) 500 Mcg Tablet 1 Tab PO DAILY Atorvastatin Calcium 20 Mg Tablet 20 Mg PO HS Lexapro (Escitalopram Oxalate) 20 Mg Tablet 20 Mg PO DAILY Furosemide 20 Mg Tablet 1 Tab PO DAILY Lidocaine PATCH (Lidocaine) 1 Each Adh..patch 1 Each TP DAILY Promethazine-Codeine Syrup (Promethazine Hcl/Codeine) 118 Ml Syrup 5 Ml PO Q4- 6HRS Zofran Odt (Ondansetron) 4 Mg Tab.rapdis 4 Mg PO BID PRN Meclizine Hcl 25 Mg Tablet 1 Tab PO PRN TID Albuterol Sulfate Hfa Inhaler (Albuterol Sulfate) 8.5 Gm Hfa.aer.ad 2 Puff INH Q4HRS PRN Potassium Chloride 20 Meq Tab.er.prt 1 Tab PO BID All Day Allergy Relief (Cetirizine Hcl) 10 Mg Tablet 10 Mg PO QHS Promethazine-Codeine Syrup (Promethazine Hcl/Codeine) 118 Ml Syrup 5 Ml PO Q4HRS Pantoprazole Sodium (Pantoprazole Sodium) 40 Mg Tablet.dr 40 Mg PO BIDAC Singulair Tablet (Montelukast Sodium) 10 Mg Tablet 10 Mg PO HS Levothyroxine Sodium 75 Mcg Tablet 1 Tab PO DAILY Duoneb 0.5-3(2.5) Mg/3 Ml (Albuterol/Ipratropium) 3 Ml Ampul.neb 3 Ml IH QID Advair 500-50 Diskus (Fluticasone/Salmeterol) 1 Each Disk.w.dev 1 Puff IH BID Estradiol 1 Mg Tablet 1 Tab PO DAILY Vitamin D3 (Cholecalciferol (Vitamin D3)) 4,000 Unit Capsule 4,000 Unit PO DAILY Ascorbic Acid 500 Mg Tablet 500 Mg PO DAILY Alprazolam 0.25 Mg Tablet 0.25 Mg PO PRN TID PRN Vitals/I & O Vital Sign - Last 24 Hours 07/09/19 07/09/19 07/09/19 07/09/19 11:00 11:03 15:00 15:24 Temp 98.7 98.2 98.7 98.2 Pulse 73 83 Resp 18 18 B/P (MAP) 130/52 (78) 98/65 (76) Pulse Ox 97 96 96 O2 Delivery Nasal Cannula Nasal Cannula Nasal Cannula Nasal Cannula O2 Flow Rate 2.0 2.0 2.0 2.0 07/09/19 07/09/19 07/09/19 07/09/19 19:00 19:35 20:00 22:51 Temp 98.3 98.0 98.3 98.0 Pulse 86 77 Resp 17 17 B/P (MAP) 121/63 (82) 144/68 (93) Pulse Ox 95 96 96 O2 Delivery Nasal Cannula Nasal Cannula Nasal Cannula Nasal Cannula O2 Flow Rate 2.0 2.0 2.0 2.0 07/10/19 07/10/19 07/10/19 07/10/19 03:00 07:00 08:03 09:00 Temp 97.8 98.1 97.8 98.1 Pulse 71 73 Resp 18 18 B/P (MAP) 129/63 (85) 106/65 (79) Pulse Ox 98 91 99 O2 Delivery Nasal Cannula Room Air Room Air Room Air O2 Flow Rate 2.0 l Intake and Output 07/09/19 07/09/19 07/10/19 15:00 23:00 07:00 Intake Total 360 ml Balance 360 ml JAVIER KELLOGG MD Jul 10, 2019 10:30
[2019-07-10] MEDS: MEROPENEM 1 GM in IV NORMAL SALINE 100ML 100 ML IV SCH ×2 (10:42→21:20)
[2019-07-10 10:57] VITALS: BP 139/68
[2019-07-10] MEDS: IV RINGERS,LACTATED 1000ML 1,000 ML IV SCH (12:26)
[2019-07-10] MEDS ORDERED: PROPOFOL 20 ML IV ONE (12:50)
--- NOTE | 2019-07-10 13:48 | PDOC4 ---
PROCEDURE Procedure BRONCHOSCOPY FINDINGS MUCUS PLUGGING BASE BILATERALLY BAL PERFORMED WILL ADD EOSINOPHILIC COUNT NO COMPLICATION KIRA SALGUERO MD Jul 10, 2019 13:48
--- NOTE | 2019-07-10 13:50 | PDOC ---
PULMONARY PROGRESS NOTES Subjective PT STILL SOA AND COUGHING UP THICK MUCUS Vitals Vital Signs Date Time Temp Pulse Resp B/P (MAP) Pulse Ox O2 Delivery O2 Flow Rate FiO2 07/10/19 13:28 98.0 97 18 166/60 93 Room Air 98.0 07/10/19 13:13 4 ROS: No Nausea, No Chest Pain, No Abdominal Pain, No Increase Cough General: Alert Lungs: Clear Cardiovascular: S1, S2 Abdomen: Soft Neuro Exam: Alert Extremities: No Edema Skin: Warm Labs Laboratory Tests Test 07/09/19 05:00 07/09/19 05:31 Nasal Screen MRSA (PCR) Negative (Negative) White Blood Count 4.2 x10^3/uL (4.0-11.0) Red Blood Count 3.63 x10^6/uL (3.50-5.40) Hemoglobin 11.4 g/dL (12.0-15.5) Hematocrit 34.1 % (36.0-47.0) Mean Corpuscular Volume 94 fL (79-100) Mean Corpuscular Hemoglobin 32 pg (25-35) Mean Corpuscular Hemoglobin Concent 34 g/dL (31-37) Red Cell Distribution Width 14.2 % (11.5-14.5) Platelet Count 113 x10^3/uL (140-400) Neutrophils (%) (Auto) 86 % (31-73) Lymphocytes (%) (Auto) 12 % (24-48) Monocytes (%) (Auto) 2 % (0-9) Eosinophils (%) (Auto) 0 % (0-3) Basophils (%) (Auto) 0 % (0-3) Neutrophils # (Auto) 3.6 x10^3/uL (1.8-7.7) Lymphocytes # (Auto) 0.5 x10^3/uL (1.0-4.8) Monocytes # (Auto) 0.1 x10^3/uL (0.0-1.1) Eosinophils # (Auto) 0.0 x10^3/uL (0.0-0.7) Basophils # (Auto) 0.0 x10^3/uL (0.0-0.2) Segmented Neutrophils % 84 % (35-66) Band Neutrophils % 4 % (0-9) Lymphocytes % 10 % (24-48) Monocytes % 2 % (0-10) Platelet Estimate Decreased (ADEQUATE) Tear Drop Cells Occ Ovalocytes Few Sodium Level 143 mmol/L (136-145) Potassium Level 4.4 mmol/L (3.5-5.1) Chloride Level 110 mmol/L (98-107) Carbon Dioxide Level 26 mmol/L (21-32) Anion Gap 7 (6-14) Blood Urea Nitrogen 15 mg/dL (7-20) Creatinine 1.4 mg/dL (0.6-1.0) Estimated GFR (Cockcroft-Gault) 36.5 Glucose Level 126 mg/dL (70-99) Calcium Level 8.4 mg/dL (8.5-10.1) Medications Active Scripts Medications Dose Route/Sig Max Daily Dose Days Date Category Tramadol Hcl 50 Mg Tablet 50 Mg PO Q6HRS PRN 10/09/18 Reported Aspirin 81 Mg Tab.chew 1 Tab PO DAILY 10/09/18 Reported Daliresp (Roflumilast) 500 Mcg Tablet 1 Tab PO DAILY 10/09/18 Reported Atorvastatin Calcium 20 Mg Tablet 20 Mg PO HS 10/09/18 Reported Lexapro (Escitalopram Oxalate) 20 Mg Tablet 20 Mg PO DAILY 10/09/18 Reported Furosemide 20 Mg Tablet 1 Tab PO DAILY 10/09/18 Reported Lidocaine PATCH (Lidocaine) 1 Each Adh..patch 1 Each TP DAILY 04/02/17 Reported Promethazine-Codeine Syrup (Promethazine Hcl/Codeine) 118 Ml Syrup 5 Ml PO Q4-6HRS 04/17/15 Reported Zofran Odt (Ondansetron) 4 Mg Tab.rapdis 4 Mg PO BID PRN 04/17/15 Reported Meclizine Hcl 25 Mg Tablet 1 Tab PO PRN TID 04/17/15 Reported Albuterol Sulfate Hfa Inhaler (Albuterol Sulfate) 8.5 Gm Hfa.aer.ad 2 Puff INH Q4HRS PRN 04/17/15 Reported Potassium Chloride 20 Meq Tab.er.prt 1 Tab PO BID 04/17/15 Reported All Day Allergy Relief (Cetirizine Hcl) 10 Mg Tablet 10 Mg PO QHS 04/17/15 Reported Promethazine-Codeine Syrup (Promethazine Hcl/Codeine) 118 Ml Syrup 5 Ml PO Q4HRS 01/22/15 Reported Pantoprazole Sodium (Pantoprazole Sodium) 40 Mg Tablet.dr 40 Mg PO BIDAC 01/22/15 Reported Singulair Tablet (Montelukast Sodium) 10 Mg Tablet 10 Mg PO HS 01/22/15 Reported Levothyroxine Sodium 75 Mcg Tablet 1 Tab PO DAILY 01/22/15 Reported Duoneb 0.5-3(2.5) Mg/3 Ml (Albuterol/Ipratropium) 3 Ml Ampul.neb 3 Ml IH QID 01/22/15 Reported Advair 500-50 Diskus (Fluticasone/Salmeterol) 1 Each Disk.w.dev 1 Puff IH BID 01/22/15 Reported Estradiol 1 Mg Tablet 1 Tab PO DAILY 01/22/15 Reported Vitamin D3 (Cholecalciferol (Vitamin D3)) 4,000 Unit Capsule 4,000 Unit PO DAILY 01/22/15 Reported Ascorbic Acid 500 Mg Tablet 500 Mg PO DAILY 01/22/15 Reported Alprazolam 0.25 Mg Tablet 0.25 Mg PO PRN TID PRN 01/22/15 Reported Impression . IMPRESSION: 1. Acute hypoxemic respiratory failure. 2. Acute recurrent mucus plugging. 3. Acute nonspecific bronchitis. 4. 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 Plan . REVIEWED R/B/A TO PROCEDURE PT ACCEPTED ANTIBX STEROIDS KIRA SALGUERO MD Jul 10, 2019 13:50
[2019-07-10] MEDS: ENOXAPARIN 30 MG/0.3 ML SYRINGE. SQ SCH (14:45)
[2019-07-10] MEDS: CITALOPRAM 20 MG TABLET. PO SCH (14:47)
[2019-07-10] MEDS: ROFLUMILAST 500 MCG TABLET. PO SCH (14:47)
[2019-07-10] MEDS: ASPIRIN CHEWABLE 81 MG TABLET. PO SCH (14:47)
[2019-07-10] MEDS: FUROSEMIDE 20 MG TABLET PO SCH (14:48)
[2019-07-10] MEDS: CHOLECALCIFEROL (VITAMIN D3) 1,000 UNIT TABLET PO SCH (14:48)
[2019-07-10] MEDS: ESTRADIOL 1 MG TABLET. PO SCH (14:48)
[2019-07-10] MEDS: ASCORBIC ACID 500 MG TABLET PO SCH (14:48)
[2019-07-10 15:00] VITALS: BP 131/62
--- NOTE | 2019-07-10 16:02 | NUR ---
SW following pt for dc planning. Chart reviewed. Pt lives at home alone but previous admission SW notes indicate pt has good support from her two Sons. PT/OT pending. Pt has bronch today. SW will be available as needed.
--- NOTE | 2019-07-10 16:29 | OP ---
DATE OF SURGERY: 07/10/2019 PROCEDURE: Bronchoscopy, bronchoalveolar lavage. INDICATION: The patient presented with recurrent mucus plugging. She has a history of eosinophilic bronchitis, asthma, has had recurrent bouts of respiratory failure. She has had recurrent episodes of mucous plugging in the past, has had undergone bronchoscopy in the past. She presents now with respiratory failure, undergoing a diagnostic therapeutic bronchoscopy. Risks, benefits, and alternatives reviewed with the patient. She consented. SEDATION: Please see anesthesia's notes. DESCRIPTION OF PROCEDURE: The patient was prepped in routine fashion. Vital signs and O2 saturations were maintained within normal limits throughout the procedure. The bronchoscope was passed through orally placed biteblock. The vocal cords were visualized moving bilaterally without any dysfunction. The vocal cords were then anesthetized with 5 mL of 4% lidocaine. The bronchoscope was passed through the vocal cords into the proximal trachea, which was normal. The right and left segments and subsegments were visualized. There was thick mucus plugging in the basal segments. On several occasions, the scope had to be withdrawn and cleared with saline. There was casting of some mucus. Eventually, the mucus was cleared away with saline. There were no endobronchial lesions visualized. A bronchoalveolar lavage of the left lower lobe was performed. The return was cloudy. IMPRESSION: 1. Recurrent mucus plugging. 2. 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 PLAN: Send BAL for routine culture. In addition, we will check eosinophilic count. KIRA SALGUERO MD DR: AUDREY/acosta JOB#: [id number] / [id number]
[2019-07-10] MEDS: diphenhydrAMINE 50 MG/ML VIAL IVP PRN (16:49)
[2019-07-10 19:00] VITALS: BP 136/64
[2019-07-10] MEDS: CETIRIZINE HCL 10 MG TABLET. PO SCH (21:00)
[2019-07-10] MEDS: MONTELUKAST SODIUM 10 MG TABLET. PO SCH (21:21)
[2019-07-10] MEDS: ATORVASTATIN CALCIUM 20 MG TABLET PO SCH (21:21)
[2019-07-10 23:00] VITALS: BP 138/72
[2019-07-11] MEDS: IV RINGERS,LACTATED 1000ML 1,000 ML IV SCH ×2 (01:50→15:10)
[2019-07-11 03:00] VITALS: BP 126/60
[2019-07-11] MEDS: diphenhydrAMINE 50 MG/ML VIAL IVP PRN ×3 (03:26→21:54)
[2019-07-11] MEDS: LEVOTHYROXINE 75 MCG TABLET PO SCH (06:32)
[2019-07-11 07:00] VITALS: BP 174/74
--- NOTE | 2019-07-11 08:29 | NUR ---
IP: Pt stated hx of mrsa was not confirmed and current screen is negative. Pt may be removed from contact precautions.
[2019-07-11] MEDS: IPRATRPIUM/ALBUTEROL 0.5/2.5MG 3 ML NEBU. NEB SCH ×4 (08:46→19:36)
[2019-07-11] MEDS: MEROPENEM 1 GM in IV NORMAL SALINE 100ML 100 ML IV SCH ×2 (08:49→20:40)
[2019-07-11] MEDS: BENZONATATE 100 MG CAPSULE. PO SCH ×3 (08:49→20:40)
[2019-07-11] MEDS: ASCORBIC ACID 500 MG TABLET PO SCH (08:49)
[2019-07-11] MEDS: methylPREDNISolone SOD SUCC PF 40 MG/ML VIAL. IV SCH ×2 (08:49→20:40)
[2019-07-11] MEDS: POTASSIUM CHLORIDE 20 MEQ TABLET.ER. PO SCH ×2 (08:50→20:41)
[2019-07-11] MEDS: ASPIRIN CHEWABLE 81 MG TABLET. PO SCH (08:50)
[2019-07-11] MEDS: ROFLUMILAST 500 MCG TABLET. PO SCH (08:50)
[2019-07-11] MEDS: CHOLECALCIFEROL (VITAMIN D3) 1,000 UNIT TABLET PO SCH (08:50)
[2019-07-11] MEDS: CITALOPRAM 20 MG TABLET. PO SCH (08:50)
[2019-07-11] MEDS: FUROSEMIDE 20 MG TABLET PO SCH (08:50)
[2019-07-11] MEDS: PANTOPRAZOLE 40 MG TABLET.DR. PO SCH ×2 (08:50→19:09)
[2019-07-11] MEDS: ESTRADIOL 1 MG TABLET. PO SCH (08:50)
--- NOTE | 2019-07-11 08:50 | PDOC ---
PROGRESS NOTES Chief Complaint Chief Complaint Acute hypoxemic respiratory failure. Acute recurrent mucus plugging. Acute nonspecific bronchitis. 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 Acute COPD exacerbation - will treat with IV steroids, aggressive nebs. Consulted pulmonology for h/o mucous plugging A-Fib - sinus currently Anemia - likely of chronic disease. Will monitor Anxiety with depression - will cont meds Constipation - will give bowel regimen COPD - with acute exacerbation, as above GERD - ppi High Cholesterol - cont statin Hypertension - cont meds Hypothyroid - cont meds Chronic Renal Disease - cr 1.6, near baseline FEN - general diet PPX - Lovenox DNR/DNI Dispo - inpatient for acute hypoxia related to acute COPD exacerbation History of Present Illness History of Present Illness Ms Schaefer is a 78-year-old female w/ PMHx A-Fib, Anemia, Anxiety, Arrhythmia, Asthma, Constipation, COPD, Depression, GERD, High Cholesterol, Hypertension, Hypothyroid, Renal Disease who presents with complaint of ongoing shortness of breath. Patient states that she has a history of COPD and currently is being treated with antibiotics. Patient states that she is coming in and requesting a shot of Solu-Medrol because she believes that that is the only thing that helps her. She was initially in the [facility] and was transferred to [facility] for further care. She denies any fever. She does indicate that she has shortness of breath, especially with exertion. She denies any chest pain. She denies any fever or chills. She states that symptoms are worsened with exertion. EKG showed sinus rhythm with PACs, CXR showed right port-a-cath and left basilar possible consolidation. CT showed tree-in-bud appearance. Now s/p bronchoscopy on 07/10 with mucous plugging. She feels better, is now coughing up a significant amount of green sputum. No CP or GI complaints. PLAN: Started on merrem - 1 gm IV q8 - dw pulmo Tentative plans home in AM Dw at bedside, seemingly no PT needs Normal WBC< no fevers Vitals Vitals Vital Signs Date Time Temp Pulse Resp B/P (MAP) Pulse Ox O2 Delivery O2 Flow Rate FiO2 07/11/19 07:00 97.8 78 16 174/74 (107) 95 Room Air 97.8 07/11/19 03:00 2.0 Physical Exam General: Alert, Oriented X3, Cooperative, No acute distress Lungs: Clear Abdomen: Normal bowel sounds, Soft, No tenderness, No hepatosplenomegaly, No masses Extremities: No clubbing, No cyanosis, No edema, Normal pulses, No tenderness/swelling Skin: No rashes, No breakdown, No significant lesion Comment Review of Relevant I have reviewed the following items will (where applicable) has been applied. Labs Microbiology 07/10/19 - Final, Complete Medications Current Medications Methylprednisolone Sodium Succinate (SOLU-Medrol 40MG VIAL) 40 mg Q12HR IV Last administered on 07/10/19 21:21; Start 07/09/19 at 09:00 Albuterol/ Ipratropium (Duoneb) 3 ml RTQID NEB Last administered on 07/11/19 08:46; Start 07/09/19 at 08:00 Albuterol Sulfate (Ventolin Neb Soln) 2.5 mg PRN Q4HRS PRN NEB SHORTNESS OF BREATH Last administered on 07/10/19 12:23; Start 07/08/19 at 22:15 Guaifenesin/ Codeine Phosphate (Robitussin Ac) 10 ml PRN Q6HRS PRN PO COUGH Last administered on 07/09/19 17:50; Start 07/08/19 at 22:15 Acetaminophen (Tylenol) 650 mg PRN Q6HRS PRN PO mild pain/ fever; Start 07/08/19 at 22:15 Ondansetron HCl (Zofran Odt) 4 mg PRN Q8HRS PRN PO NAUSEA/VOMITING 1ST CHOICE; Start 07/08/19 at 22:15 Alprazolam (Xanax) 0.25 mg PRN TID PRN PO ANXIETY / AGITATION Last administered on 07/10/19 00:18; Start 07/08/19 at 22:15 Ascorbic Acid (Vitamin C) 500 mg DAILY PO Last administered on 07/10/19 14:48; Start 07/09/19 at 09:00 Aspirin (Children'S Aspirin) 81 mg DAILY PO Last administered on 07/10/19 14:47; Start 07/09/19 at 09:00 Atorvastatin Calcium (Lipitor) 20 mg HS PO Last administered on 07/10/19 21:21; Start 07/09/19 at 21:00 Cetirizine HCl (ZyrTEC) 10 mg QHS PO Last administered on 07/09/19 21:06; Start 07/09/19 at 21:00 Estradiol (Estrace) 1 mg DAILY PO Last administered on 07/10/19 14:48; Start 07/09/19 at 09:00 Furosemide (Lasix) 20 mg DAILY PO Last administered on 07/10/19 14:48; Start 07/09/19 at 09:00 Levothyroxine Sodium (Synthroid) 75 mcg DAILY06 PO Last administered on 07/11/19 06:32; Start 07/09/19 at 06:00 Lidocaine (Lidoderm) 1 patch DAILY TP ; Start 07/09/19 at 09:00 Montelukast Sodium (Singulair) 10 mg HS PO Last administered on 07/10/19 21:21; Start 07/09/19 at 21:00 Ondansetron HCl (Zofran Odt) 4 mg BID PRN PO NAUSEA/VOMITING; Start 07/08/19 at 22:15; Status UNV Pantoprazole Sodium (Protonix) 40 mg BIDAC PO Last administered on 07/10/19 16:49; Start 07/09/19 at 07:30 Potassium Chloride (Klor-Con) 20 meq BID PO Last administered on 07/10/19 21:21; Start 07/09/19 at 09:00 Roflumilast (Daliresp) 500 mcg DAILY PO Last administered on 07/10/19 14:47; Start 07/09/19 at 09:00 Tramadol HCl (Ultram) 50 mg PRN Q6HRS PRN PO MODERATE PAIN 4-6; Start 07/08/19 at 22:15 Vitamin D (Vitamin D3) 4,000 unit DAILY PO Last administered on 07/10/19 14:48; Start 07/09/19 at 09:00 Citalopram Hydrobromide (CeleXA) 40 mg DAILY PO Last administered on 07/10/19 14:47; Start 07/09/19 at 09:00 Meclizine HCl (Antivert) 25 mg PRN TID PRN PO DIZZINESS; Start 07/08/19 at 23:00 Enoxaparin Sodium (Lovenox 30mg Syringe) 30 mg Q24H SQ ; Start 07/09/19 at 16:00 Diphenhydramine HCl (Benadryl) 50 mg PRN Q8HRS PRN IVP ITCHING Last administered on 07/11/19at 03:26; Start 07/09/19 at 22:45 Lidocaine HCl (Lidocaine 2% Viscous) 100 ml PRN 1X PRN MM MOUTH PAIN Last administered on 07/10/19at 12:23; Start 07/10/19 at 08:15; Stop 07/11/19 at 08:14; Status DC Lidocaine HCl (Lidocaine 1% 20ml Vial) 20 ml PRN 1X PRN INJ SEE COMMENTS Last administered on 07/10/19at 12:24; Start 07/10/19 at 08:15; Stop 07/11/19 at 08:14; Status DC Epinephrine HCl (Adrenalin) 1 mg PRN 1X PRN INJ SEE COMMENTS; Start 07/10/19 at 08:15; Stop 07/11/19 at 08:14; Status DC Lidocaine HCl 50 ml PRN 1X PRN MM SEE COMMENTS Last administered on 07/10/19at 12:23; Start 07/10/19 at 08:15; Stop 07/11/19 at 08:14; Status DC Guaifenesin (Robitussin Dm) 10 ml PRN Q6HRS PRN PO COUGH; Start 07/10/19 at 08:30 Ondansetron HCl (Zofran) 4 mg PRN Q6HRS PRN IVP NAUSEA/VOMITING; Start 07/10/19 at 08:30 Benzonatate (Tessalon Perle) 100 mg [id number] PO Last administered on 07/10/19at 21:21; Start 07/10/19 at 09:00 Meropenem 1 gm/ Sodium Chloride 100 ml @ 200 mls/hr Q12HR IV Last administered on 07/10/19at 21:20; Start 07/10/19 at 09:00 Epinephrine HCl (Adrenalin) 1 mg STK-MED ONCE .ROUTE ; Start 07/10/19 at 09:04; Stop 07/10/19 at 09:05; Status DC Lidocaine HCl (Lidocaine 1% 20ml Vial) 20 ml STK-MED ONCE .ROUTE ; Start 07/10/19 at 09:04; Stop 07/10/19 at 09:05; Status DC Lidocaine HCl (Lidocaine 2% Viscous) 100 ml STK-MED ONCE .ROUTE ; Start 07/10/19 at 09:04; Stop 07/10/19 at 09:05; Status DC Lidocaine HCl 50 ml STK-MED ONCE .ROUTE ; Start 07/10/19 at 09:04; Stop 07/10/19 at 09:05; Status DC Ringer's Solution 1,000 ml @ 75 mls/hr [id number] IV Last administered on 07/10/19at 12:26; Start 07/10/19 at 12:30 Propofol 20 ml @ As Directed STK-MED ONCE IV ; Start 07/10/19 at 12:50; Stop 07/10/19 at 12:51; Status DC Active Scripts Active Reported Tramadol Hcl 50 Mg Tablet 50 Mg PO Q6HRS PRN Aspirin 81 Mg Tab.chew 1 Tab PO DAILY Daliresp (Roflumilast) 500 Mcg Tablet 1 Tab PO DAILY Atorvastatin Calcium 20 Mg Tablet 20 Mg PO HS Lexapro (Escitalopram Oxalate) 20 Mg Tablet 20 Mg PO DAILY Furosemide 20 Mg Tablet 1 Tab PO DAILY Lidocaine PATCH (Lidocaine) 1 Each Adh..patch 1 Each TP DAILY Promethazine-Codeine Syrup (Promethazine Hcl/Codeine) 118 Ml Syrup 5 Ml PO Q4- 6HRS Zofran Odt (Ondansetron) 4 Mg Tab.rapdis 4 Mg PO BID PRN Meclizine Hcl 25 Mg Tablet 1 Tab PO PRN TID Albuterol Sulfate Hfa Inhaler (Albuterol Sulfate) 8.5 Gm Hfa.aer.ad 2 Puff INH Q4HRS PRN Potassium Chloride 20 Meq Tab.er.prt 1 Tab PO BID All Day Allergy Relief (Cetirizine Hcl) 10 Mg Tablet 10 Mg PO QHS Promethazine-Codeine Syrup (Promethazine Hcl/Codeine) 118 Ml Syrup 5 Ml PO Q4HRS Pantoprazole Sodium (Pantoprazole Sodium) 40 Mg Tablet.dr 40 Mg PO BIDAC Singulair Tablet (Montelukast Sodium) 10 Mg Tablet 10 Mg PO HS Levothyroxine Sodium 75 Mcg Tablet 1 Tab PO DAILY Duoneb 0.5-3(2.5) Mg/3 Ml (Albuterol/Ipratropium) 3 Ml Ampul.neb 3 Ml IH QID Advair 500-50 Diskus (Fluticasone/Salmeterol) 1 Each Disk.w.dev 1 Puff IH BID Estradiol 1 Mg Tablet 1 Tab PO DAILY Vitamin D3 (Cholecalciferol (Vitamin D3)) 4,000 Unit Capsule 4,000 Unit PO DAILY Ascorbic Acid 500 Mg Tablet 500 Mg PO DAILY Alprazolam 0.25 Mg Tablet 0.25 Mg PO PRN TID PRN Vitals/I & O Vital Sign - Last 24 Hours 07/10/19 07/10/19 07/10/19 07/10/19 09:00 10:57 11:47 12:16 Temp 97.5 97.5 Pulse 75 Resp 16 B/P (MAP) 139/68 (91) Pulse Ox 93 O2 Delivery Room Air Room Air Room Air Room Air O2 Flow Rate 2.0 07/10/19 07/10/19 07/10/19 07/10/19 12:16 12:31 13:13 13:28 Temp 97.1 98 98.0 97.1 98.0 98.0 Pulse 88 93 97 Resp 18 18 18 B/P (MAP) 141/55 166/60 Pulse Ox 95 94 97 93 O2 Delivery Room Air Room Air Room Air O2 Flow Rate 4 07/10/19 07/10/19 07/10/19 07/10/19 13:42 15:00 16:33 19:00 Temp 98.0 98.1 97.9 98.0 98.1 97.9 Pulse 86 82 87 Resp 18 16 18 B/P (MAP) 146/49 131/62 (85) 136/64 (88) Pulse Ox 93 92 96 O2 Delivery Room Air Room Air Room Air Nasal Cannula O2 Flow Rate 2.0 07/10/19 07/10/19 07/10/19 07/11/19 20:00 20:32 23:00 03:00 Temp 97.7 97.9 97.7 97.9 Pulse 79 80 Resp 18 18 B/P (MAP) 138/72 (94) 126/60 (82) Pulse Ox 96 95 94 O2 Delivery Room Air Room Air Nasal Cannula Nasal Cannula O2 Flow Rate 2.0 2.0 07/11/19 07:00 Temp 97.8 97.8 Pulse 78 Resp 16 B/P (MAP) 174/74 (107) Pulse Ox 95 O2 Delivery Room Air Intake and Output 07/10/19 07/10/19 07/11/19 14:59 22:59 06:59 Intake Total 200 ml 360 ml Balance 200 ml 360 ml POONAM MARTINEZ MD Jul 11, 2019 08:50
[2019-07-11] MEDS: LIDOCAINE (700MG/PATCH) PATCH. TP SCH (09:00)
--- NOTE | 2019-07-11 09:48 | PDOC ---
PULMONARY PROGRESS NOTES Subjective PT STILL SOA AND COUGHING UP THICK MUCUS Vitals Vital Signs Date Time Temp Pulse Resp B/P (MAP) Pulse Ox O2 Delivery O2 Flow Rate FiO2 07/11/19 08:51 94 Room Air 07/11/19 07:00 97.8 78 16 174/74 (107) 97.8 07/11/19 03:00 2.0 ROS: No Nausea, No Chest Pain, No Abdominal Pain, No Increase Cough General: Alert Lungs: Clear Cardiovascular: S1, S2 Abdomen: Soft Neuro Exam: Alert Extremities: No Edema Skin: Warm Medications Active Scripts Medications Dose Route/Sig Max Daily Dose Days Date Category Tramadol Hcl 50 Mg Tablet 50 Mg PO Q6HRS PRN 10/09/18 Reported Aspirin 81 Mg Tab.chew 1 Tab PO DAILY 10/09/18 Reported Daliresp (Roflumilast) 500 Mcg Tablet 1 Tab PO DAILY 10/09/18 Reported Atorvastatin Calcium 20 Mg Tablet 20 Mg PO HS 10/09/18 Reported Lexapro (Escitalopram Oxalate) 20 Mg Tablet 20 Mg PO DAILY 10/09/18 Reported Furosemide 20 Mg Tablet 1 Tab PO DAILY 10/09/18 Reported Lidocaine PATCH (Lidocaine) 1 Each Adh..patch 1 Each TP DAILY 04/02/17 Reported Promethazine-Codeine Syrup (Promethazine Hcl/Codeine) 118 Ml Syrup 5 Ml PO Q4-6HRS 04/17/15 Reported Zofran Odt (Ondansetron) 4 Mg Tab.rapdis 4 Mg PO BID PRN 04/17/15 Reported Meclizine Hcl 25 Mg Tablet 1 Tab PO PRN TID 04/17/15 Reported Albuterol Sulfate Hfa Inhaler (Albuterol Sulfate) 8.5 Gm Hfa.aer.ad 2 Puff INH Q4HRS PRN 04/17/15 Reported Potassium Chloride 20 Meq Tab.er.prt 1 Tab PO BID 04/17/15 Reported All Day Allergy Relief (Cetirizine Hcl) 10 Mg Tablet 10 Mg PO QHS 04/17/15 Reported Promethazine-Codeine Syrup (Promethazine Hcl/Codeine) 118 Ml Syrup 5 Ml PO Q4HRS 01/22/15 Reported Pantoprazole Sodium (Pantoprazole Sodium) 40 Mg Tablet.dr 40 Mg PO BIDAC 01/22/15 Reported Singulair Tablet (Montelukast Sodium) 10 Mg Tablet 10 Mg PO HS 01/22/15 Reported Levothyroxine Sodium 75 Mcg Tablet 1 Tab PO DAILY 01/22/15 Reported Duoneb 0.5-3(2.5) Mg/3 Ml (Albuterol/Ipratropium) 3 Ml Ampul.neb 3 Ml IH QID 01/22/15 Reported Advair 500-50 Diskus (Fluticasone/Salmeterol) 1 Each Disk.w.dev 1 Puff IH BID 01/22/15 Reported Estradiol 1 Mg Tablet 1 Tab PO DAILY 01/22/15 Reported Vitamin D3 (Cholecalciferol (Vitamin D3)) 4,000 Unit Capsule 4,000 Unit PO DAILY 01/22/15 Reported Ascorbic Acid 500 Mg Tablet 500 Mg PO DAILY 01/22/15 Reported Alprazolam 0.25 Mg Tablet 0.25 Mg PO PRN TID PRN 01/22/15 Reported Impression . IMPRESSION: 1. Acute hypoxemic respiratory failure. 2. Acute recurrent mucus plugging. 3. Acute nonspecific bronchitis.POSSIBLE PNEUMONIA GRAM POS/NEG STARTED ON MEROPENEM 4. 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 Plan . SO FAR BAL NO ORGANISM D/W DR MARTINZE D/C IN AM ANTIBX STEROIDS KIRA SALGUERO MD Jul 11, 2019 09:48
[2019-07-11 11:06] VITALS: BP 133/55
[2019-07-11 13:04] LABS: ALBUMIN 3.1 g/dL (3.4-5.0); CALCIUM 8.7 mg/dL (8.5-10.1); CREATININE 1.8 mg/dL (0.6-1.0); GFR 27.3; PHOSPHORUS 3.1 mg/dL (2.6-4.7); POTASSIUM 4.2 mmol/L (3.5-5.1)
[2019-07-11 14:25] LABS: BASO % 0 % (0-3); EOS % 0 % (0-3); HEMATOCRIT 34.9 % (36.0-47.0); HEMOGLOBIN 11.7 g/dL (12.0-15.5); LYMPH # 0.1 x10^3/uL (1.0-4.8); LYMPH % 2 % (24-48); MEAN CORPUSCULAR HEMOGLOBIN 31 pg (25-35); MEAN CORPUSCULAR HGB CONC 33 g/dL (31-37); MEAN CORPUSCULAR VOLUME 94 fL (79-100); MONO # 0.4 x10^3/uL (0.0-1.1); MONO % 4 % (0-9); NEUT # 7.8 x10^3/uL (1.8-7.7); NEUT % 94 % (31-73); PLATELET COUNT 140 x10^3/uL (140-400); RED BLOOD COUNT 3.72 x10^6/uL (3.50-5.40); RED CELL DISTRIBUTION WIDTH 14.5 % (11.5-14.5); WHITE BLOOD COUNT 8.3 x10^3/uL (4.0-11.0)
[2019-07-11 15:00] VITALS: BP 138/59
[2019-07-11 19:00] VITALS: BP 121/57
[2019-07-11] MEDS: ENOXAPARIN 30 MG/0.3 ML SYRINGE. SQ SCH (19:09)
[2019-07-11] MEDS: CETIRIZINE HCL 10 MG TABLET. PO SCH (20:40)
[2019-07-11] MEDS: LACTOBACILLUS RHAMNOSUS GG 1 CAPSULE. PO SCH (20:40)
[2019-07-11] MEDS: ATORVASTATIN CALCIUM 20 MG TABLET PO SCH (20:40)
[2019-07-11] MEDS: MONTELUKAST SODIUM 10 MG TABLET. PO SCH (20:41)
[2019-07-11 23:00] VITALS: BP 121/59
[2019-07-11] MEDS: ALPRAZolam 0.25 MG TABLET PO PRN (23:54)
[2019-07-12] MEDS: LEVOTHYROXINE 75 MCG TABLET PO SCH (06:38)
[2019-07-12 07:00] VITALS: BP 134/53
[2019-07-12] MEDS: IPRATRPIUM/ALBUTEROL 0.5/2.5MG 3 ML NEBU. NEB SCH ×2 (07:24→12:35)
--- NOTE | 2019-07-12 08:26 | PDOC ---
PROGRESS NOTES Chief Complaint Chief Complaint Acute hypoxemic respiratory failure. Acute recurrent mucus plugging. Acute nonspecific bronchitis. 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 Acute COPD exacerbation - will treat with IV steroids, aggressive nebs. Consulted pulmonology for h/o mucous plugging A-Fib - sinus currently Anemia - likely of chronic disease. Will monitor Anxiety with depression - will cont meds Constipation - will give bowel regimen COPD - with acute exacerbation, as above GERD - ppi High Cholesterol - cont statin Hypertension - cont meds Hypothyroid - cont meds Chronic Renal Disease - cr 1.6, near baseline FEN - general diet PPX - Lovenox DNR/DNI Dispo - inpatient for acute hypoxia related to acute COPD exacerbation History of Present Illness History of Present Illness Ms Schaefer is a 78-year-old female w/ PMHx A-Fib, Anemia, Anxiety, Arrhythmia, Asthma, Constipation, COPD, Depression, GERD, High Cholesterol, Hypertension, Hypothyroid, Renal Disease who presents with complaint of ongoing shortness of breath. Patient states that she has a history of COPD and currently is being treated with antibiotics. Patient states that she is coming in and requesting a shot of Solu-Medrol because she believes that that is the only thing that helps her. She was initially in the [place] ED and was transferred to [facility] for further care. She denies any fever. She does indicate that she has shortness of breath, especially with exertion. She denies any chest pain. She denies any fever or chills. She states that symptoms are worsened with exertion. EKG showed sinus rhythm with PACs, CXR showed right port-a-cath and left basilar possible consolidation. CT showed tree-in-bud appearance. Now s/p bronchoscopy on 07/10 with mucous plugging. 07/11: Coughing up green sputum She feels better, is now coughing clear sputum. No CP or GI complaints. Sputum initial shows normal respiratory jayshree. She had a reaction to merrem PLAN: Started on merrem - 1 gm IV q8 - dw pulmo to d/c - will try doxy today, if she tolerates it well, home on 5 days of doxy. Tentative plans home in AM Dw at bedside, seemingly no PT needs Normal WBC< no fevers Vitals Vitals Vital Signs Date Time Temp Pulse Resp B/P (MAP) Pulse Ox O2 Delivery O2 Flow Rate FiO2 07/12/19 07:25 98 Room Air 07/12/19 07:00 98.2 98 16 134/53 (80) 98.2 Physical Exam General: Alert, Oriented X3, Cooperative, No acute distress Lungs: Clear Abdomen: Normal bowel sounds, Soft, No tenderness, No hepatosplenomegaly, No masses Extremities: No clubbing, No cyanosis, No edema, Normal pulses, No tenderness/swelling Skin: No rashes, No breakdown, No significant lesion Labs LABS Laboratory Tests Test 07/11/19 10:55 07/11/19 14:15 Sodium Level 144 mmol/L (136-145) Potassium Level 4.2 mmol/L (3.5-5.1) Chloride Level 107 mmol/L (98-107) Carbon Dioxide Level 27 mmol/L (21-32) Anion Gap 10 (6-14) Blood Urea Nitrogen 19 mg/dL (7-20) Creatinine 1.8 mg/dL (0.6-1.0) Estimated GFR (Cockcroft-Gault) 27.3 Glucose Level 123 mg/dL (70-99) Calcium Level 8.7 mg/dL (8.5-10.1) Phosphorus Level 3.1 mg/dL (2.6-4.7) Albumin 3.1 g/dL (3.4-5.0) White Blood Count 8.3 x10^3/uL (4.0-11.0) Red Blood Count 3.72 x10^6/uL (3.50-5.40) Hemoglobin 11.7 g/dL (12.0-15.5) Hematocrit 34.9 % (36.0-47.0) Mean Corpuscular Volume 94 fL (79-100) Mean Corpuscular Hemoglobin 31 pg (25-35) Mean Corpuscular Hemoglobin Concent 33 g/dL (31-37) Red Cell Distribution Width 14.5 % (11.5-14.5) Platelet Count 140 x10^3/uL (140-400) Neutrophils (%) (Auto) 94 % (31-73) Lymphocytes (%) (Auto) 2 % (24-48) Monocytes (%) (Auto) 4 % (0-9) Eosinophils (%) (Auto) 0 % (0-3) Basophils (%) (Auto) 0 % (0-3) Neutrophils # (Auto) 7.8 x10^3/uL (1.8-7.7) Lymphocytes # (Auto) 0.1 x10^3/uL (1.0-4.8) Monocytes # (Auto) 0.4 x10^3/uL (0.0-1.1) Eosinophils # (Auto) 0.0 x10^3/uL (0.0-0.7) Basophils # (Auto) 0.0 x10^3/uL (0.0-0.2) Comment Review of Relevant I have reviewed the following items will (where applicable) has been applied. Labs Laboratory Tests Test 07/11/19 10:55 07/11/19 14:15 Sodium Level 144 mmol/L (136-145) Potassium Level 4.2 mmol/L (3.5-5.1) Chloride Level 107 mmol/L (98-107) Carbon Dioxide Level 27 mmol/L (21-32) Anion Gap 10 (6-14) Blood Urea Nitrogen 19 mg/dL (7-20) Creatinine 1.8 mg/dL (0.6-1.0) Estimated GFR (Cockcroft-Gault) 27.3 Glucose Level 123 mg/dL (70-99) Calcium Level 8.7 mg/dL (8.5-10.1) Phosphorus Level 3.1 mg/dL (2.6-4.7) Albumin 3.1 g/dL (3.4-5.0) White Blood Count 8.3 x10^3/uL (4.0-11.0) Red Blood Count 3.72 x10^6/uL (3.50-5.40) Hemoglobin 11.7 g/dL (12.0-15.5) Hematocrit 34.9 % (36.0-47.0) Mean Corpuscular Volume 94 fL (79-100) Mean Corpuscular Hemoglobin 31 pg (25-35) Mean Corpuscular Hemoglobin Concent 33 g/dL (31-37) Red Cell Distribution Width 14.5 % (11.5-14.5) Platelet Count 140 x10^3/uL (140-400) Neutrophils (%) (Auto) 94 % (31-73) Lymphocytes (%) (Auto) 2 % (24-48) Monocytes (%) (Auto) 4 % (0-9) Eosinophils (%) (Auto) 0 % (0-3) Basophils (%) (Auto) 0 % (0-3) Neutrophils # (Auto) 7.8 x10^3/uL (1.8-7.7) Lymphocytes # (Auto) 0.1 x10^3/uL (1.0-4.8) Monocytes # (Auto) 0.4 x10^3/uL (0.0-1.1) Eosinophils # (Auto) 0.0 x10^3/uL (0.0-0.7) Basophils # (Auto) 0.0 x10^3/uL (0.0-0.2) Laboratory Tests Test 07/11/19 10:55 07/11/19 14:15 Sodium Level 144 mmol/L (136-145) Potassium Level 4.2 mmol/L (3.5-5.1) Chloride Level 107 mmol/L (98-107) Carbon Dioxide Level 27 mmol/L (21-32) Anion Gap 10 (6-14) Blood Urea Nitrogen 19 mg/dL (7-20) Creatinine 1.8 mg/dL (0.6-1.0) Estimated GFR (Cockcroft-Gault) 27.3 Glucose Level 123 mg/dL (70-99) Calcium Level 8.7 mg/dL (8.5-10.1) Phosphorus Level 3.1 mg/dL (2.6-4.7) Albumin 3.1 g/dL (3.4-5.0) White Blood Count 8.3 x10^3/uL (4.0-11.0) Red Blood Count 3.72 x10^6/uL (3.50-5.40) Hemoglobin 11.7 g/dL (12.0-15.5) Hematocrit 34.9 % (36.0-47.0) Mean Corpuscular Volume 94 fL (79-100) Mean Corpuscular Hemoglobin 31 pg (25-35) Mean Corpuscular Hemoglobin Concent 33 g/dL (31-37) Red Cell Distribution Width 14.5 % (11.5-14.5) Platelet Count 140 x10^3/uL (140-400) Neutrophils (%) (Auto) 94 % (31-73) Lymphocytes (%) (Auto) 2 % (24-48) Monocytes (%) (Auto) 4 % (0-9) Eosinophils (%) (Auto) 0 % (0-3) Basophils (%) (Auto) 0 % (0-3) Neutrophils # (Auto) 7.8 x10^3/uL (1.8-7.7) Lymphocytes # (Auto) 0.1 x10^3/uL (1.0-4.8) Monocytes # (Auto) 0.4 x10^3/uL (0.0-1.1) Eosinophils # (Auto) 0.0 x10^3/uL (0.0-0.7) Basophils # (Auto) 0.0 x10^3/uL (0.0-0.2) Microbiology 07/10/19 - Final, Complete Medications Current Medications Methylprednisolone Sodium Succinate (SOLU-Medrol 40MG VIAL) 40 mg Q12HR IV Last administered on 07/11/19at 20:40; Start 07/09/19 at 09:00 Albuterol/ Ipratropium (Duoneb) 3 ml RTQID NEB Last administered on 07/12/19at 07:24; Start 07/09/19 at 08:00 Albuterol Sulfate (Ventolin Neb Soln) 2.5 mg PRN Q4HRS PRN NEB SHORTNESS OF BREATH Last administered on 07/10/19at 12:23; Start 07/08/19 at 22:15 Guaifenesin/ Codeine Phosphate (Robitussin Ac) 10 ml PRN Q6HRS PRN PO COUGH, 2ND CHOICE Last administered on 07/09/19at 17:50; Start 07/08/19 at 22:15 Acetaminophen (Tylenol) 650 mg PRN Q6HRS PRN PO mild pain/ fever; Start 07/08/19 at 22:15 Ondansetron HCl (Zofran Odt) 4 mg PRN Q8HRS PRN PO NAUSEA/VOMITING 1ST CHOICE; Start 07/08/19 at 22:15 Alprazolam (Xanax) 0.25 mg PRN TID PRN PO ANXIETY / AGITATION Last administered on 07/11/19at 23:54; Start 07/08/19 at 22:15 Ascorbic Acid (Vitamin C) 500 mg DAILY PO Last administered on 07/11/19 08:4 9; Start 07/09/19 at 09:00 Aspirin (Children'S Aspirin) 81 mg DAILY PO Last administered on 07/11/19 08:50; Start 07/09/19 at 09:00 Atorvastatin Calcium (Lipitor) 20 mg HS PO Last administered on 07/11/19 20:40; Start 07/09/19 at 21:00 Cetirizine HCl (ZyrTEC) 10 mg QHS PO Last administered on 07/11/19 20:40; Start 07/09/19 at 21:00 Estradiol (Estrace) 1 mg DAILY PO Last administered on 07/11/19 08:50; Start 07/09/19 at 09:00 Furosemide (Lasix) 20 mg DAILY PO Last administered on 07/11/19 08:50; Start 07/09/19 at 09:00 Levothyroxine Sodium (Synthroid) 75 mcg DAILY06 PO Last administered on 07/12/19 06:38; Start 07/09/19 at 06:00 Lidocaine (Lidoderm) 1 patch DAILY TP ; Start 07/09/19 at 09:00 Montelukast Sodium (Singulair) 10 mg HS PO Last administered on 07/11/19 20:41; Start 07/09/19 at 21:00 Ondansetron HCl (Zofran Odt) 4 mg BID PRN PO NAUSEA/VOMITING; Start 07/08/19 at 22:15; Status UNV Pantoprazole Sodium (Protonix) 40 mg BIDAC PO Last administered on 07/11/19 19:09; Start 07/09/19 at 07:30 Potassium Chloride (Klor-Con) 20 meq BID PO Last administered on 07/11/19 20:41; Start 07/09/19 at 09:00 Roflumilast (Daliresp) 500 mcg DAILY PO Last administered on 07/11/19 08:50; Start 07/09/19 at 09:00 Tramadol HCl (Ultram) 50 mg PRN Q6HRS PRN PO MODERATE PAIN 4-6; Start 07/08/19 at 22:15 Vitamin D (Vitamin D3) 4,000 unit DAILY PO Last administered on 07/11/19 08:50; Start 07/09/19 at 09:00 Citalopram Hydrobromide (CeleXA) 40 mg DAILY PO Last administered on 07/11/19 08:50; Start 07/09/19 at 09:00 Meclizine HCl (Antivert) 25 mg PRN TID PRN PO DIZZINESS; Start 07/08/19 at 23:00 Enoxaparin Sodium (Lovenox 30mg Syringe) 30 mg Q24H SQ Last administered on 07/11/19at 19:09; Start 07/09/19 at 16:00 Diphenhydramine HCl (Benadryl) 50 mg PRN Q8HRS PRN IVP ITCHING Last administered on 07/11/19 21:54; Start 07/09/19 at 22:45 Lidocaine HCl (Lidocaine 2% Viscous) 100 ml PRN 1X PRN MM MOUTH PAIN Last administered on 07/10/19 12:23; Start 07/10/19 at 08:15; Stop 07/11/19 at 08:14; Status DC Lidocaine HCl (Lidocaine 1% 20ml Vial) 20 ml PRN 1X PRN INJ SEE COMMENTS Last administered on 07/10/19 12:24; Start 07/10/19 at 08:15; Stop 07/11/19 at 08:14; Status DC Epinephrine HCl (Adrenalin) 1 mg PRN 1X PRN INJ SEE COMMENTS; Start 07/10/19 at 08:15; Stop 07/11/19 at 08:14; Status DC Lidocaine HCl 50 ml PRN 1X PRN MM SEE COMMENTS Last administered on 07/10/19at 12:23; Start 07/10/19 at 08:15; Stop 07/11/19 at 08:14; Status DC Guaifenesin (Robitussin Dm) 10 ml PRN Q6HRS PRN PO COUGH, 1ST CHOICE; Start 07/10/19 at 08:30 Ondansetron HCl (Zofran) 4 mg PRN Q6HRS PRN IVP NAUSEA/VOMITING; Start 07/10/19 at 08:30 Benzonatate (Tessalon Perle) 100 mg [id number] PO Last administered on 07/11/19at 20:40; Start 07/10/19 at 09:00 Meropenem 1 gm/ Sodium Chloride 100 ml @ 200 mls/hr Q12HR IV Last administered on 07/11/19at 20:40; Start 07/10/19 at 09:00 Epinephrine HCl (Adrenalin) 1 mg STK-MED ONCE .ROUTE ; Start 07/10/19 at 09:04; Stop 07/10/19 at 09:05; Status DC Lidocaine HCl (Lidocaine 1% 20ml Vial) 20 ml STK-MED ONCE .ROUTE ; Start 07/10/19 at 09:04; Stop 07/10/19 at 09:05; Status DC Lidocaine HCl (Lidocaine 2% Viscous) 100 ml STK-MED ONCE .ROUTE ; Start 07/10/19 at 09:04; Stop 07/10/19 at 09:05; Status DC Lidocaine HCl 50 ml STK-MED ONCE .ROUTE ; Start 07/10/19 at 09:04; Stop 07/10/19 at 09:05; Status DC Ringer's Solution 1,000 ml @ 75 mls/hr [id number] IV Last administered on 07/10/19at 12:26; Start 07/10/19 at 12:30; Stop 07/11/19 at 20:35; Status DC Propofol 20 ml @ As Directed STK-MED ONCE IV ; Start 07/10/19 at 12:50; Stop 07/10/19 at 12:51; Status DC Lactobacillus Rhamnosus (Culturelle) 1 cap BID PO Last administered on 07/11/19at 20:40; Start 07/11/19 at 21:00 Active Scripts Active Reported Tramadol Hcl 50 Mg Tablet 50 Mg PO Q6HRS PRN Aspirin 81 Mg Tab.chew 1 Tab PO DAILY Daliresp (Roflumilast) 500 Mcg Tablet 1 Tab PO DAILY Atorvastatin Calcium 20 Mg Tablet 20 Mg PO HS Lexapro (Escitalopram Oxalate) 20 Mg Tablet 20 Mg PO DAILY Furosemide 20 Mg Tablet 1 Tab PO DAILY Lidocaine PATCH (Lidocaine) 1 Each Adh..patch 1 Each TP DAILY Promethazine-Codeine Syrup (Promethazine Hcl/Codeine) 118 Ml Syrup 5 Ml PO Q4- 6HRS Zofran Odt (Ondansetron) 4 Mg Tab.rapdis 4 Mg PO BID PRN Meclizine Hcl 25 Mg Tablet 1 Tab PO PRN TID Albuterol Sulfate Hfa Inhaler (Albuterol Sulfate) 8.5 Gm Hfa.aer.ad 2 Puff INH Q4HRS PRN Potassium Chloride 20 Meq Tab.er.prt 1 Tab PO BID All Day Allergy Relief (Cetirizine Hcl) 10 Mg Tablet 10 Mg PO QHS Promethazine-Codeine Syrup (Promethazine Hcl/Codeine) 118 Ml Syrup 5 Ml PO Q4HRS Pantoprazole Sodium (Pantoprazole Sodium) 40 Mg Tablet.dr 40 Mg PO BIDAC Singulair Tablet (Montelukast Sodium) 10 Mg Tablet 10 Mg PO HS Levothyroxine Sodium 75 Mcg Tablet 1 Tab PO DAILY Duoneb 0.5-3(2.5) Mg/3 Ml (Albuterol/Ipratropium) 3 Ml Ampul.neb 3 Ml IH QID Advair 500-50 Diskus (Fluticasone/Salmeterol) 1 Each Disk.w.dev 1 Puff IH BID Estradiol 1 Mg Tablet 1 Tab PO DAILY Vitamin D3 (Cholecalciferol (Vitamin D3)) 4,000 Unit Capsule 4,000 Unit PO DAILY Ascorbic Acid 500 Mg Tablet 500 Mg PO DAILY Alprazolam 0.25 Mg Tablet 0.25 Mg PO PRN TID PRN Vitals/I & O Vital Sign - Last 24 Hours 07/11/19 07/11/19 07/11/19 07/11/19 08:51 11:06 12:11 14:55 Temp 97.8 97.8 Pulse 85 Resp 16 B/P (MAP) 133/55 (81) Pulse Ox 94 96 94 96 O2 Delivery Room Air Room Air Room Air Room Air 07/11/19 07/11/19 07/11/19 07/11/19 15:00 19:00 19:36 20:00 Temp 97.7 98.1 97.7 98.1 Pulse 80 95 Resp 19 B/P (MAP) 138/59 (85) 121/57 (78) Pulse Ox 95 95 96 O2 Delivery Room Air Room Air Room Air Room Air 07/11/19 07/12/19 07/12/19 23:00 07:00 07:25 Temp 97.8 98.2 97.8 98.2 Pulse 104 98 Resp 16 B/P (MAP) 121/59 (79) 134/53 (80) Pulse Ox 96 93 98 O2 Delivery Room Air Room Air Room Air Intake and Output 07/11/19 07/11/19 07/12/19 14:59 22:59 06:59 Intake Total 600 ml 1200 ml 0 ml Balance 600 ml 1200 ml 0 ml POONAM MARTINEZ MD Jul 12, 2019 08:26
[2019-07-12] MEDS: MEROPENEM 1 GM in IV NORMAL SALINE 100ML 100 ML IV SCH (09:00)
[2019-07-12] MEDS: LIDOCAINE (700MG/PATCH) PATCH. TP SCH ×2 (09:00→09:31)
--- NOTE | 2019-07-12 09:18 | PDOC ---
PULMONARY PROGRESS NOTES Subjective PT STILL SOA AND COUGHING UP THICK MUCUS Vitals Vital Signs Date Time Temp Pulse Resp B/P (MAP) Pulse Ox O2 Delivery O2 Flow Rate FiO2 07/12/19 07:25 98 Room Air 07/12/19 07:00 98.2 98 16 134/53 (80) 98.2 ROS: No Nausea, No Chest Pain, No Abdominal Pain, No Increase Cough General: Alert Lungs: Clear Cardiovascular: S1, S2 Abdomen: Soft Neuro Exam: Alert Extremities: No Edema Skin: Warm Labs Laboratory Tests Test 07/11/19 10:55 07/11/19 14:15 Sodium Level 144 mmol/L (136-145) Potassium Level 4.2 mmol/L (3.5-5.1) Chloride Level 107 mmol/L (98-107) Carbon Dioxide Level 27 mmol/L (21-32) Anion Gap 10 (6-14) Blood Urea Nitrogen 19 mg/dL (7-20) Creatinine 1.8 mg/dL (0.6-1.0) Estimated GFR (Cockcroft-Gault) 27.3 Glucose Level 123 mg/dL (70-99) Calcium Level 8.7 mg/dL (8.5-10.1) Phosphorus Level 3.1 mg/dL (2.6-4.7) Albumin 3.1 g/dL (3.4-5.0) White Blood Count 8.3 x10^3/uL (4.0-11.0) Red Blood Count 3.72 x10^6/uL (3.50-5.40) Hemoglobin 11.7 g/dL (12.0-15.5) Hematocrit 34.9 % (36.0-47.0) Mean Corpuscular Volume 94 fL (79-100) Mean Corpuscular Hemoglobin 31 pg (25-35) Mean Corpuscular Hemoglobin Concent 33 g/dL (31-37) Red Cell Distribution Width 14.5 % (11.5-14.5) Platelet Count 140 x10^3/uL (140-400) Neutrophils (%) (Auto) 94 % (31-73) Lymphocytes (%) (Auto) 2 % (24-48) Monocytes (%) (Auto) 4 % (0-9) Eosinophils (%) (Auto) 0 % (0-3) Basophils (%) (Auto) 0 % (0-3) Neutrophils # (Auto) 7.8 x10^3/uL (1.8-7.7) Lymphocytes # (Auto) 0.1 x10^3/uL (1.0-4.8) Monocytes # (Auto) 0.4 x10^3/uL (0.0-1.1) Eosinophils # (Auto) 0.0 x10^3/uL (0.0-0.7) Basophils # (Auto) 0.0 x10^3/uL (0.0-0.2) Laboratory Tests Test 07/11/19 10:55 07/11/19 14:15 Sodium Level 144 mmol/L (136-145) Potassium Level 4.2 mmol/L (3.5-5.1) Chloride Level 107 mmol/L (98-107) Carbon Dioxide Level 27 mmol/L (21-32) Anion Gap 10 (6-14) Blood Urea Nitrogen 19 mg/dL (7-20) Creatinine 1.8 mg/dL (0.6-1.0) Estimated GFR (Cockcroft-Gault) 27.3 Glucose Level 123 mg/dL (70-99) Calcium Level 8.7 mg/dL (8.5-10.1) Phosphorus Level 3.1 mg/dL (2.6-4.7) Albumin 3.1 g/dL (3.4-5.0) White Blood Count 8.3 x10^3/uL (4.0-11.0) Red Blood Count 3.72 x10^6/uL (3.50-5.40) Hemoglobin 11.7 g/dL (12.0-15.5) Hematocrit 34.9 % (36.0-47.0) Mean Corpuscular Volume 94 fL (79-100) Mean Corpuscular Hemoglobin 31 pg (25-35) Mean Corpuscular Hemoglobin Concent 33 g/dL (31-37) Red Cell Distribution Width 14.5 % (11.5-14.5) Platelet Count 140 x10^3/uL (140-400) Neutrophils (%) (Auto) 94 % (31-73) Lymphocytes (%) (Auto) 2 % (24-48) Monocytes (%) (Auto) 4 % (0-9) Eosinophils (%) (Auto) 0 % (0-3) Basophils (%) (Auto) 0 % (0-3) Neutrophils # (Auto) 7.8 x10^3/uL (1.8-7.7) Lymphocytes # (Auto) 0.1 x10^3/uL (1.0-4.8) Monocytes # (Auto) 0.4 x10^3/uL (0.0-1.1) Eosinophils # (Auto) 0.0 x10^3/uL (0.0-0.7) Basophils # (Auto) 0.0 x10^3/uL (0.0-0.2) Medications Active Scripts Medications Dose Route/Sig Max Daily Dose Days Date Category Tramadol Hcl 50 Mg Tablet 50 Mg PO Q6HRS PRN 10/09/18 Reported Aspirin 81 Mg Tab.chew 1 Tab PO DAILY 10/09/18 Reported Daliresp (Roflumilast) 500 Mcg Tablet 1 Tab PO DAILY 10/09/18 Reported Atorvastatin Calcium 20 Mg Tablet 20 Mg PO HS 10/09/18 Reported Lexapro (Escitalopram Oxalate) 20 Mg Tablet 20 Mg PO DAILY 10/09/18 Reported Furosemide 20 Mg Tablet 1 Tab PO DAILY 10/09/18 Reported Lidocaine PATCH (Lidocaine) 1 Each Adh..patch 1 Each TP DAILY 04/02/17 Reported Promethazine-Codeine Syrup (Promethazine Hcl/Codeine) 118 Ml Syrup 5 Ml PO Q4-6HRS 04/17/15 Reported Zofran Odt (Ondansetron) 4 Mg Tab.rapdis 4 Mg PO BID PRN 04/17/15 Reported Meclizine Hcl 25 Mg Tablet 1 Tab PO PRN TID 04/17/15 Reported Albuterol Sulfate Hfa Inhaler (Albuterol Sulfate) 8.5 Gm Hfa.aer.ad 2 Puff INH Q4HRS PRN 04/17/15 Reported Potassium Chloride 20 Meq Tab.er.prt 1 Tab PO BID 04/17/15 Reported All Day Allergy Relief (Cetirizine Hcl) 10 Mg Tablet 10 Mg PO QHS 04/17/15 Reported Promethazine-Codeine Syrup (Promethazine Hcl/Codeine) 118 Ml Syrup 5 Ml PO Q4HRS 01/22/15 Reported Pantoprazole Sodium (Pantoprazole Sodium) 40 Mg Tablet.dr 40 Mg PO BIDAC 01/22/15 Reported Singulair Tablet (Montelukast Sodium) 10 Mg Tablet 10 Mg PO HS 01/22/15 Reported Levothyroxine Sodium 75 Mcg Tablet 1 Tab PO DAILY 01/22/15 Reported Duoneb 0.5-3(2.5) Mg/3 Ml (Albuterol/Ipratropium) 3 Ml Ampul.neb 3 Ml IH QID 01/22/15 Reported Advair 500-50 Diskus (Fluticasone/Salmeterol) 1 Each Disk.w.dev 1 Puff IH BID 01/22/15 Reported Estradiol 1 Mg Tablet 1 Tab PO DAILY 01/22/15 Reported Vitamin D3 (Cholecalciferol (Vitamin D3)) 4,000 Unit Capsule 4,000 Unit PO DAILY 01/22/15 Reported Ascorbic Acid 500 Mg Tablet 500 Mg PO DAILY 01/22/15 Reported Alprazolam 0.25 Mg Tablet 0.25 Mg PO PRN TID PRN 01/22/15 Reported Impression . IMPRESSION: 1. Acute hypoxemic respiratory failure. 2. Acute recurrent mucus plugging. 3. Acute nonspecific bronchitis.POSSIBLE PNEUMONIA GRAM POS/NEG STARTED ON MEROPENEM 4. 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 Plan . SO FAR BAL NO ORGANISM D/W DR MARTINEZ DC TODAY TODAY ON DOXY FOLLOW UP NEXT TUESDAY TAPER STEROIDS KIRA SALGUERO MD Jul 12, 2019 09:18
[2019-07-12] MEDS: ESTRADIOL 1 MG TABLET. PO SCH (09:28)
[2019-07-12] MEDS: PANTOPRAZOLE 40 MG TABLET.DR. PO SCH (09:29)
[2019-07-12] MEDS: ASCORBIC ACID 500 MG TABLET PO SCH (09:29)
[2019-07-12] MEDS: POTASSIUM CHLORIDE 20 MEQ TABLET.ER. PO SCH (09:29)
[2019-07-12] MEDS: CHOLECALCIFEROL (VITAMIN D3) 1,000 UNIT TABLET PO SCH (09:29)
[2019-07-12] MEDS: ENOXAPARIN 30 MG/0.3 ML SYRINGE. SQ SCH (09:29)
[2019-07-12] MEDS: FUROSEMIDE 20 MG TABLET PO SCH (09:30)
[2019-07-12] MEDS: methylPREDNISolone SOD SUCC PF 40 MG/ML VIAL. IV SCH (09:30)
[2019-07-12] MEDS: LACTOBACILLUS RHAMNOSUS GG 1 CAPSULE. PO SCH (09:30)
[2019-07-12] MEDS: ROFLUMILAST 500 MCG TABLET. PO SCH (09:30)
[2019-07-12] MEDS: ASPIRIN CHEWABLE 81 MG TABLET. PO SCH (09:30)
[2019-07-12] MEDS: CITALOPRAM 20 MG TABLET. PO SCH (09:30)
[2019-07-12] MEDS: BENZONATATE 100 MG CAPSULE. PO SCH ×2 (09:30→14:00)
[2019-07-12 10:16] LABS: CALCIUM 8.4 mg/dL (8.5-10.1); CREATININE 1.7 mg/dL (0.6-1.0); GFR 29.1; POTASSIUM 3.5 mmol/L (3.5-5.1)
[2019-07-12 11:00] VITALS: BP 140/56
--- NOTE | 2019-07-12 13:44 | PDOC3 ---
Discharge Summary Visit Information Date of Admission: Jul 08, 2019 Date of Discharge: Jul 12, 2019 Admitting Diagnosis: Acute hypoxia Final Diagnosis Acute hypoxia Brief Hospital Course Allergies Allergies Coded Allergies Type Severity Reaction Last Updated Verified meropenem Allergy Severe Itching 07/12/19 Yes Tetracyclines Allergy Intermediate Hives 01/24/15 Yes adhesive Allergy Intermediate Rash 01/24/15 Yes amoxicillin Allergy Intermediate 07/08/19 Yes cefotaxime Allergy Intermediate Hives 01/24/15 Yes ciprofloxacin Allergy Intermediate 07/08/19 Yes clavulanic acid Allergy Intermediate 07/08/19 Yes clindamycin Allergy Intermediate Hives 01/24/15 Yes vancomycin Allergy Intermediate Hives 01/23/15 Yes Vital Signs Vital Signs Date Time Temp Pulse Resp B/P (MAP) Pulse Ox O2 Delivery O2 Flow Rate FiO2 07/12/19 12:36 95 Room Air 07/12/19 11:00 98.1 101 16 140/56 (84) 98.1 Lab Results Laboratory Tests Test 07/11/19 10:55 07/11/19 14:15 07/12/19 09:45 Sodium Level 144 mmol/L (136-145) 144 mmol/L (136-145) Potassium Level 4.2 mmol/L (3.5-5.1) 3.5 mmol/L (3.5-5.1) Chloride Level 107 mmol/L (98-107) 107 mmol/L (98-107) Carbon Dioxide Level 27 mmol/L (21-32) 29 mmol/L (21-32) Anion Gap 10 (6-14) 8 (6-14) Blood Urea Nitrogen 19 mg/dL (7-20) 21 mg/dL (7-20) Creatinine 1.8 mg/dL (0.6-1.0) 1.7 mg/dL (0.6-1.0) Estimated GFR (Cockcroft-Gault) 27.3 29.1 Glucose Level 123 mg/dL (70-99) 83 mg/dL (70-99) Calcium Level 8.7 mg/dL (8.5-10.1) 8.4 mg/dL (8.5-10.1) Phosphorus Level 3.1 mg/dL (2.6-4.7) Albumin 3.1 g/dL (3.4-5.0) White Blood Count 8.3 x10^3/uL (4.0-11.0) Red Blood Count 3.72 x10^6/uL (3.50-5.40) Hemoglobin 11.7 g/dL (12.0-15.5) Hematocrit 34.9 % (36.0-47.0) Mean Corpuscular Volume 94 fL (79-100) Mean Corpuscular Hemoglobin 31 pg (25-35) Mean Corpuscular Hemoglobin Concent 33 g/dL (31-37) Red Cell Distribution Width 14.5 % (11.5-14.5) Platelet Count 140 x10^3/uL (140-400) Neutrophils (%) (Auto) 94 % (31-73) Lymphocytes (%) (Auto) 2 % (24-48) Monocytes (%) (Auto) 4 % (0-9) Eosinophils (%) (Auto) 0 % (0-3) Basophils (%) (Auto) 0 % (0-3) Neutrophils # (Auto) 7.8 x10^3/uL (1.8-7.7) Lymphocytes # (Auto) 0.1 x10^3/uL (1.0-4.8) Monocytes # (Auto) 0.4 x10^3/uL (0.0-1.1) Eosinophils # (Auto) 0.0 x10^3/uL (0.0-0.7) Basophils # (Auto) 0.0 x10^3/uL (0.0-0.2) Procalcitonin < 0.10 ng/mL (0.00-0.10) Laboratory Tests Test 07/11/19 14:15 07/12/19 09:45 White Blood Count 8.3 x10^3/uL (4.0-11.0) Red Blood Count 3.72 x10^6/uL (3.50-5.40) Hemoglobin 11.7 g/dL (12.0-15.5) Hematocrit 34.9 % (36.0-47.0) Mean Corpuscular Volume 94 fL (79-100) Mean Corpuscular Hemoglobin 31 pg (25-35) Mean Corpuscular Hemoglobin Concent 33 g/dL (31-37) Red Cell Distribution Width 14.5 % (11.5-14.5) Platelet Count 140 x10^3/uL (140-400) Neutrophils (%) (Auto) 94 % (31-73) Lymphocytes (%) (Auto) 2 % (24-48) Monocytes (%) (Auto) 4 % (0-9) Eosinophils (%) (Auto) 0 % (0-3) Basophils (%) (Auto) 0 % (0-3) Neutrophils # (Auto) 7.8 x10^3/uL (1.8-7.7) Lymphocytes # (Auto) 0.1 x10^3/uL (1.0-4.8) Monocytes # (Auto) 0.4 x10^3/uL (0.0-1.1) Eosinophils # (Auto) 0.0 x10^3/uL (0.0-0.7) Basophils # (Auto) 0.0 x10^3/uL (0.0-0.2) Sodium Level 144 mmol/L (136-145) Potassium Level 3.5 mmol/L (3.5-5.1) Chloride Level 107 mmol/L (98-107) Carbon Dioxide Level 29 mmol/L (21-32) Anion Gap 8 (6-14) Blood Urea Nitrogen 21 mg/dL (7-20) Creatinine 1.7 mg/dL (0.6-1.0) Estimated GFR (Cockcroft-Gault) 29.1 Glucose Level 83 mg/dL (70-99) Calcium Level 8.4 mg/dL (8.5-10.1) Procalcitonin < 0.10 ng/mL (0.00-0.10) Brief Hospital Course Ms Schaefer is a 78-year-old female w/ PMHx A-Fib, Anemia, Anxiety, Arrhythmia, Asthma, Constipation, COPD, Depression, GERD, High Cholesterol, Hypertension, Hypothyroid, Renal Disease who presents with complaint of ongoing shortness of breath. Patient states that she has a history of COPD and currently is being treated with antibiotics. Patient states that she is coming in and requesting a shot of Solu-Medrol because she believes that that is the only thing that helps her. She was initially in the [place] ED and was transferred to [facility] for further care. She denies any fever. She does indicate that she has shortness of breath, especially with exertion. She denies any chest pain. She denies any fever or chills. She states that symptoms are worsened with exertion. EKG showed sinus rhythm with PACs, CXR showed right port-a-cath and left basilar possible consolidation. CT showed tree-in-bud appearance. Now s/p bronchoscopy on 07/10 with mucous plugging. 07/11: Coughing up green sputum She feels better, is now coughing clear sputum. No CP or GI complaints. Sputum initial shows normal respiratory jayshree. She had a reaction to merrem. Has pulm f/u Problem: Acute hypoxemic respiratory failure. Acute recurrent mucus plugging. Acute nonspecific bronchitis. 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 Acute COPD exacerbation - will treat with IV steroids, aggressive nebs. Consulted pulmonology for h/o mucous plugging A-Fib - sinus currently Anemia - likely of chronic disease. Will monitor Anxiety with depression - will cont meds Constipation - will give bowel regimen COPD - with acute exacerbation, as above GERD - ppi High Cholesterol - cont statin Hypertension - cont meds Hypothyroid - cont meds Chronic Renal Disease - cr 1.6, near baseline PLAN: Started on merrem - 1 gm IV q8 - dw pulmo to d/c - will try doxy today, if she tolerates it well, home on 5 days of doxy. Tentative plans home in AM Dw at bedside, seemingly no PT needs Normal WBC< no fevers Greater than 30 minutes spent on d/c Discharge Information Condition at Discharge: Improved Follow Up: Weeks (2) Disposition/Orders: D/C to Home Scheduled Ascorbic Acid (Ascorbic Acid) 500 Mg Tablet, 500 MG PO DAILY, (Reported) Entered as Reported by: ANABEL POPE on 01/22/151942 Last Action: Continued on 07/08/192239 by NIMESH VALENTINE Aspirin (Aspirin) 81 Mg Tab.chew, 1 TAB PO DAILY for heart, #30 Ref 3 (Reported) Entered as Reported by: KRYSTLE VILLA on 10/09/181743 Last Action: Continued on 07/08/192239 by NIMESH VALENTINE Atorvastatin Calcium (Atorvastatin Calcium) 20 Mg Tablet, 20 MG PO HS for FOR CHOLESTEROL, #30 Ref 0 (Reported) Entered as Reported by: KRYSTLE VILLA on 1/14/19 1744 Last Action: Continued on 07/08/192239 by NIMESH VALENTINE Cetirizine Hcl (All Day Allergy Relief) 10 Mg Tablet, 10 MG PO QHS, (Reported) Entered as Reported by: ANUPAMA TREVIZO on 04/17/151949 Last Action: Continued on 07/08/192239 by NIMESH VALENTINE Cholecalciferol (Vitamin D3) (Vitamin D3) 4,000 Unit Capsule, 4,000 UNIT PO DAILY, (Reported) Entered as Reported by: ANABEL POPE on 01/22/151942 Last Action: Converted on 07/08/192239 by NIMESH VALENTINE Escitalopram Oxalate (Lexapro) 20 Mg Tablet, 20 MG PO DAILY for ANTI-DEPRESSANT, Ref 0 (Reported) Entered as Reported by: KRYSTLE VILLA on 10/09/181743 Last Action: Converted on 07/08/192239 by NIMESH VALENTINE Estradiol (Estradiol) 1 Mg Tablet, 1 TAB PO DAILY, #30 Ref 11 (Reported) Entered as Reported by: ANABEL POPE on 01/22/151942 Last Action: Continued on 07/08/192239 by NIMESH VALENTINE Fluticasone/Salmeterol (Advair 500-50 Diskus) 1 Each Disk.w.dev, 1 PUFF IH BID, #1 Ref 5 (Reported) Entered as Reported by: ANABEL POPE on 01/22/151942 Furosemide (Furosemide) 20 Mg Tablet, 1 TAB PO DAILY for diuretic, #90 Ref 1 (Reported) Entered as Reported by: KRYSTLE VILLA on 10/09/181743 Last Action: Continued on 07/08/192239 by NIMESH VALENTINE Ipratropium/Albuterol Sulfate (Duoneb 0.5-3(2.5) Mg/3 Ml) 3 Ml Ampul.neb, 3 ML IH QID, (Reported) Entered as Reported by: ANABEL POPE on 01/22/151942 Levothyroxine Sodium (Levothyroxine Sodium) 75 Mcg Tablet, 1 TAB PO DAILY, #30 Ref 5 (Reported) Entered as Reported by: ANABEL POPE on 01/22/151942 Last Action: Continued on 07/08/192239 by NIMESH VALENTINE Lidocaine (Lidocaine PATCH ) 1 Each Adh..patch, 1 EACH TP DAILY, (Reported) Entered as Reported by: YUE GREENFIELD on 04/02/17 1016 Last Action: Continued on 07/08/192239 by NIMESH VALENTINE Meclizine Hcl (Meclizine Hcl) 25 Mg Tablet, 1 TAB PO PRN TID, #30 (Reported) Entered as Reported by: ANUPAMA TREVIZO on 04/17/151953 Last Action: Converted on 07/08/192239 by NIMESH VALENTINE Montelukast Sodium (Singulair Tablet ) 10 Mg Tablet, 10 MG PO HS for FOR ASTHMA, #30 Ref 0 (Reported) Entered as Reported by: ANABEL POPE on 01/22/151942 Last Action: Continued on 07/08/192239 by NIMESH VALENTINE Pantoprazole Sodium (Pantoprazole Sodium ) 40 Mg Tablet.dr, 40 MG PO BIDAC, (Reported) Entered as Reported by: ANABEL POPE on 01/22/151942 Last Action: Continued on 07/08/192239 by NIMESH VALENTINE Potassium Chloride (Potassium Chloride) 20 Meq Tab.er.prt, 1 TAB PO BID, #180 Ref 3 (Reported) Entered as Reported by: ANUPAMA TREVIZO on 04/17/151949 Last Action: Continued on 07/08/192239 by NIMESH VALENTINE Promethazine Hcl/Codeine (Promethazine-Codeine Syrup) 118 Ml Syrup, 5 ML PO Q4HRS, #120 (Reported) Entered as Reported by: ANABEL POPE on 01/22/151942 Promethazine Hcl/Codeine (Promethazine-Codeine Syrup) 118 Ml Syrup, 5 ML PO Q4-6HRS, #120 (Reported) Entered as Reported by: ANUPAMA TREVIZO on 04/17/151953 Roflumilast (Daliresp) 500 Mcg Tablet, 1 TAB PO DAILY for lungs, #90 Ref 3 (Reported) Entered as Reported by: KRYSTLE VILLA on 10/09/18 1744 Last Action: Continued on 07/08/192239 by NIMESH VALENTINE Scheduled PRN Albuterol Sulfate (Albuterol Sulfate Hfa Inhaler) 8.5 Gm Hfa.aer.ad, 2 PUFF INH Q4HRS PRN for SHORTNESS OF BREATH, Ref 0 (Reported) Entered as Reported by: ANUPAMA TREVIZO on 04/17/151950 Alprazolam (Alprazolam) 0.25 Mg Tablet, 0.25 MG PO PRN TID PRN for ANXIETY / AGITATION, Ref 0 (Reported) Entered as Reported by: ANABEL POPE on 01/22/151942 Last Action: Continued on 07/08/192239 by NIMESH VALENTINE Ondansetron (Zofran Odt) 4 Mg Tab.rapdis, 4 MG PO BID PRN for NAUSEA/VOMITING, (Reported) Entered as Reported by: ANUPAMA TREVIZO on 04/17/151953 Last Action: Continued on 07/08/192239 by NIMESH VALENTINE Tramadol Hcl (Tramadol Hcl) 50 Mg Tablet, 50 MG PO Q6HRS PRN for PAIN, (Reported) Entered as Reported by: KRYSTLE VILLA on 10/09/18 1744 Last Action: Continued on 07/08/192239 by POONAM ZAVALA MD Jul 12, 2019 13:44
[2019-07-12] MEDS ORDERED: DOXYCYCLINE HYCLATE 100 MG TABLET PO SCH (13:45)
[2019-07-12] MEDS ORDERED: HEPARIN PF 500 UNIT/5 ML DISP.SYRIN. IVP ONE (13:45)
[2019-07-12] MEDS ORDERED: DOXY100T PO (13:47)
== END 2019-07-12 15:24 | disposition home or self-care (01) | DRG 190 ==
LOC: 5 SOUTH 21:00
PROVIDERS: ADMIT Internal Medicine; ATTEND Internal Medicine
PROC: 0B9J8ZX Drainage of Left Lower Lung Lobe, Via Natural or Artificial Opening Endoscopic, Diagnostic (ICD-10-PCS; principal; 2019-07-10 12:00)
DX: J44.0 Chronic obstructive pulmonary disease with (acute) lower respiratory infection (principal); J15.6 Pneumonia due to other Gram-negative bacteria; J96.01 Acute respiratory failure with hypoxia; J15.9 Unspecified bacterial pneumonia; I48.20 Chronic atrial fibrillation, unspecified; J82 Pulmonary eosinophilia, not elsewhere classified; J44.1 Chronic obstructive pulmonary disease with (acute) exacerbation; E78.00 Pure hypercholesterolemia, unspecified; K21.9 Gastro-esophageal reflux disease without esophagitis; E03.9 Hypothyroidism, unspecified; E78.5 Hyperlipidemia, unspecified; N18.9 Chronic kidney disease, unspecified; Z90.49 Acquired absence of other specified parts of digestive tract; Z90.710 Acquired absence of both cervix and uterus; Z82.49 Family history of ischemic heart disease and other diseases of the circulatory system; Z88.8 Allergy status to other drugs, medicaments and biological substances; F41.8 Other specified anxiety disorders; K59.00 Constipation, unspecified; F32.9 Major depressive disorder, single episode, unspecified; I12.9 Hypertensive chronic kidney disease with stage 1 through stage 4 chronic kidney disease, or unspecified chronic kidney disease; Z66 Do not resuscitate; J20.9 Acute bronchitis, unspecified; Z96.659 Presence of unspecified artificial knee joint; T17.990A Other foreign object in respiratory tract, part unspecified in causing asphyxiation, initial encounter; X58.XXXA Exposure to other specified factors, initial encounter; Y93.89 Activity, other specified; Y92.89 Other specified places as the place of occurrence of the external cause; Y99.8 Other external cause status; D63.8 Anemia in other chronic diseases classified elsewhere
CPT/HCPCS: 31622; 36415; 80048; 80069; 84145; 85007; 85025; 87070; 87102; 87116; 87205; 87641; 88112; 94640; 94760; J1200; J1650; J2185; J2704; J2920; J7120; J7613; J7620; 97110; 97116; G0378

== ENCOUNTER 2019-11-01 17:33 | Emergency (ER) | payer MEDICARE, BC ==
[~2019-11-01] VITALS: Ht 157.5 cm; Wt 62.7 kg
[~2019-11-01 17:33] MED LIST changes: +DOXY100T PO; +MECL-75 PO; -MECL25TA3 PO
--- NOTE | 2019-11-01 18:57 | PHYS DOC ---
Past Medical History Past Medical History: A-Fib, Asthma, Bronchitis, COPD, Pneumonia Additional Past Medical Histor: sleepapnea,autoimmune deficiency, thyroid dis, lower ext edema Past Surgical History: Cholecystectomy, , Hysterectomy, Other Additional Past Surgical Histo: bilateral knees, breast reduction Smoking Status: Never Smoker Alcohol Use: None Drug Use: None Adult General Chief Complaint Chief Complaint: SHORTNESS OF BREATH HPI HPI 78-year-old female with underlying history of COPD, atrial fibrillation, history of pneumonia, anemia with recent GI bleed presents to the emergency Department complaints of shortness of breath. Patient has a history of shortness breath over the last 3 days, worsening today. She describes nausea with dry heaves. She denies any chest pain. Does complain of cough with phlegm production. She states she had a fever yesterday of 101. She states her cough is worse with a deep breath. Patient states she did received her influenza vaccine this year. Review of Systems Review of Systems Constitutional: fever Respiratory: Cough/SOB Cardiovascular: No additional information not addressed in HPI [] GI: Denies abdominal pain, + nausea, vomiting, no bloody stools or diarrhea [] : Denies dysuria or hematuria [] Musculoskeletal: Denies back pain or joint pain [] Integument: Denies rash or skin lesions [] Neurologic: Denies headache, focal weakness or sensory changes [] All other systems were reviewed and found to be within normal limits, except as documented in this note. Current Medications Current Medications Current Medications Medications (Trade) Dose Ordered Sig/Nancy Start Time Stop Time Status Last Admin Dose Admin Albuterol/ Ipratropium (Duoneb) 3 ml 1X ONCE 11/01/19 19:00 11/01/19 19:01 DC 11/01/19 18:58 3 ML Furosemide (Lasix) 40 mg 1X ONCE 11/01/19 21:15 11/01/19 21:16 Allergies Allergies Allergies Coded Allergies Type Severity Reaction Last Updated Verified meropenem Allergy Severe Itching 07/12/19 Yes Tetracyclines Allergy Intermediate Hives 01/24/15 Yes adhesive Allergy Intermediate Rash 01/24/15 Yes amoxicillin Allergy Intermediate 07/08/19 Yes cefotaxime Allergy Intermediate Hives 01/24/15 Yes ciprofloxacin Allergy Intermediate 07/08/19 Yes clavulanic acid Allergy Intermediate 07/08/19 Yes clindamycin Allergy Intermediate Hives 01/24/15 Yes vancomycin Allergy Intermediate Hives 01/23/15 Yes Physical Exam Physical Exam Constitutional: Well developed, well nourished, no acute distress, non-toxic appearance. [] HENT: Normocephalic, atraumatic, bilateral external ears normal, oropharynx moist, no oral exudates, nose normal. [] Eyes: PERRLA, EOMI, conjunctiva normal, no discharge. [] Neck: Normal range of motion, no tenderness, supple, no stridor. [] Cardiovascular: Tachycardia Lungs & Thorax: decreased BS right greater than left, no wheeze Abdomen: Bowel sounds normal, soft, no tenderness, no masses, no pulsatile masses. [] Skin: Warm, dry, no erythema, no rash. [] Back: No tenderness, no CVA tenderness. [] Extremities: No tenderness, no edema. [] Neurologic: Alert and oriented X 3, no focal deficits noted. [] Psychologic: Affect normal, judgement normal, mood normal. [] Current Patient Data Vital Signs Vital Signs Date Time Temp Pulse Resp B/P (MAP) Pulse Ox O2 Delivery O2 Flow Rate FiO2 11/01/19 18:59 94 Nasal Cannula 2.0 11/01/19 18:00 97.9 99 21 160/69 (99) 97.9 Lab Values Laboratory Tests Test 11/01/19 19:18 11/01/19 19:25 11/01/19 19:30 Influenza Type A Antigen Negative (NEGATIVE) Influenza Type B Antigen Negative (NEGATIVE) White Blood Count 8.2 x10^3/uL (4.0-11.0) Red Blood Count 3.96 x10^6/uL (3.50-5.40) Hemoglobin 12.1 g/dL (12.0-15.5) Hematocrit 36.7 % (36.0-47.0) Mean Corpuscular Volume 93 fL (79-100) Mean Corpuscular Hemoglobin 31 pg (25-35) Mean Corpuscular Hemoglobin Concent 33 g/dL (31-37) Red Cell Distribution Width 16.5 % (11.5-14.5) H Platelet Count 143 x10^3/uL (140-400) Neutrophils (%) (Auto) 52 % (31-73) Lymphocytes (%) (Auto) 20 % (24-48) L Monocytes (%) (Auto) 11 % (0-9) H Eosinophils (%) (Auto) 17 % (0-3) H Basophils (%) (Auto) 1 % (0-3) Neutrophils # (Auto) 4.2 x10^3/uL (1.8-7.7) Lymphocytes # (Auto) 1.6 x10^3/uL (1.0-4.8) Monocytes # (Auto) 0.9 x10^3/uL (0.0-1.1) Eosinophils # (Auto) 1.4 x10^3/uL (0.0-0.7) H Basophils # (Auto) 0.1 x10^3/uL (0.0-0.2) Segmented Neutrophils % 61 % (35-66) Lymphocytes % 16 % (24-48) L Monocytes % 5 % (0-10) Eosinophils % 15 % (0-5) H Basophils % 3 % (0-3) Platelet Estimate Adequate (ADEQUATE) Sodium Level 142 mmol/L (136-145) Potassium Level 3.5 mmol/L (3.5-5.1) Chloride Level 104 mmol/L (98-107) Carbon Dioxide Level 31 mmol/L (21-32) Anion Gap 7 (6-14) Blood Urea Nitrogen 10 mg/dL (7-20) Creatinine 1.3 mg/dL (0.6-1.0) H Estimated GFR (Cockcroft-Gault) 39.7 BUN/Creatinine Ratio 8 (6-20) Glucose Level 100 mg/dL (70-99) H Calcium Level 9.0 mg/dL (8.5-10.1) Total Bilirubin 0.6 mg/dL (0.2-1.0) Aspartate Amino Transferase (AST) 28 U/L (15-37) Alanine Aminotransferase (ALT) 15 U/L (14-59) Alkaline Phosphatase 109 U/L (46-116) Troponin I Quantitative < 0.017 ng/mL (0.000-0.055) DI-Pst-D-Type Natriuretic Peptide 3335 pg/mL (0-449) H Total Protein 5.8 g/dL (6.4-8.2) L Albumin 2.8 g/dL (3.4-5.0) L Albumin/Globulin Ratio 0.9 (1.0-1.7) L Urine Collection Type Unknown Urine Color Yellow Urine Clarity Clear Urine pH 5.5 Urine Specific [place] 1.015 Urine Protein Negative mg/dL (NEG-TRACE) Urine Glucose (UA) Negative mg/dL (NEG) Urine Ketones (Stick) Negative mg/dL (NEG) Urine Blood Negative (NEG) Urine Nitrite Negative (NEG) Urine Bilirubin Negative (NEG) Urine Urobilinogen Dipstick 0.2 mg/dL (0.2 mg/dL) Urine Leukocyte Esterase Trace (NEG) Urine RBC Occ /HPF (0-2) Urine WBC 1-4 /HPF (0-4) Urine Squamous Epithelial Cells Many /LPF Urine Bacteria Few /HPF (0-FEW) Urine Hyaline Casts Moderate /HPF Urine Mucus Mod /LPF Urine Yeast Present /HPF Laboratory Tests 11/01/19 19:25 Laboratory Tests 11/01/19 19:25 EKG EKG [] Radiology/Procedures Radiology/Procedures [facility] [address] [place] [address] IMAGING REPORT Signed PATIENT: CLEVELAND REAL ACCOUNT: [id number] : 1940 LOCATION: ER AGE: 78 SEX: F EXAM STATUS: REG ER ORD. PHYSICIAN: HERRERA ARTIS MD REASON: Shortness of breath PROCEDURE: PORTABLE CHEST 1V EXAM: AP View of the chest DATE: 11/01/2019 7:39 PM INDICATION: Shortness of breath COMPARISON: 10/09/2018 FINDINGS: The heart is not enlarged. Mediastinal and hilar contours are normal. No focal parenchymal airspace opacity. No pleural effusion or pneumothorax. Right chest port tip terminates within the proximal SVC. IMPRESSION: 1. No radiographic evidence for acute cardiopulmonary process. Electronically signed by: Nahid Coreas MD (11/01/2019 8:54 PM) [id number] DICTATED and SIGNED BY: NAHID COREAS MD DATE: 11/01/192053 [] Course & Med Decision Making Course & Med Decision Making Pertinent Labs and Imaging studies reviewed. (See chart for details) []78-year-old female with underlying history of COPD, atrial fibrillation, history of pneumonia, anemia with recent GI bleed presents to the emergency Department complaints of shortness of breath. Patient has a history of shortness breath over the last 3 days, worsening today. She describes nausea with dry heaves. She denies any chest pain. Does complain of cough with phlegm production . She states she had a fever yesterday of 101. She states her cough is worse with a deep breath. Patient states she did received her influenza vaccine this year. Labs/Imaging reviewed BNP 3335 Influenza negative, UAD negative CXR negative for acute process Lasix 40mg IV x 1 Discussed increasing lasix to 40mg daily x 3 days and then back to 20mg daily Return precautions provided, discussed with family [place] Disclaimer Dragon Disclaimer This electronic medical record was generated, in whole or in part, using a voice recognition dictation system. Departure Departure Impression: Primary Impression: Dyspnea Additional Impression: Elevated brain natriuretic peptide (BNP) level Disposition: 01 HOME, SELF-CARE Condition: IMPROVED Referrals: STEPHEN FLORES MD (PCP) Patient Instructions: BNP, Brain Natriuretic Peptide, Shortness of Breath, Ycto-tt-Tary Additional Instructions: Recommend follow up with PCP 3 - 5 days Return to the ER with worsening symptoms, intractable pain, fever, altered mental status Tylenol/Motrin as needed for pain Discussed increasing lasix to 40mg daily x 3 days and then back to 20mg daily Combivent provided scheduled, continue albuterol as scheduled Scripts Ipratropium/Albuterol Sulfate (COMBIVENT RESPIMAT INHAL) 4 Gm Aer.w.adap 2 INH IH QID for 30 Days, #1 INHALER Prov: HERRERA ARTIS MD 11/01/19 Problem Qualifiers Primary Impression: Dyspnea Dyspnea type: unspecified Qualified Codes: R06.00 - Dyspnea, unspecified HERRERA ARTIS MD Nov 01, 2019 18:57
[2019-11-01] MEDS ORDERED: IPRATRPIUM/ALBUTEROL 0.5/2.5MG 3 ML NEBU. NEB ONE (19:00)
[2019-11-01 19:42] LABS: BASO # 0.1 x10^3/uL (0.0-0.2); BASO % 1 % (0-3); EOS # 1.4 x10^3/uL (0.0-0.7); EOS % 17 % (0-3); HEMATOCRIT 36.7 % (36.0-47.0); HEMOGLOBIN 12.1 g/dL (12.0-15.5); LYMPH # 1.6 x10^3/uL (1.0-4.8); LYMPH % 20 % (24-48); MEAN CORPUSCULAR HEMOGLOBIN 31 pg (25-35); MEAN CORPUSCULAR HGB CONC 33 g/dL (31-37); MEAN CORPUSCULAR VOLUME 93 fL (79-100); MONO # 0.9 x10^3/uL (0.0-1.1); MONO % 11 % (0-9); NEUT # 4.2 x10^3/uL (1.8-7.7); NEUT % 52 % (31-73); PLATELET COUNT 143 x10^3/uL (140-400); RED BLOOD COUNT 3.96 x10^6/uL (3.50-5.40); RED CELL DISTRIBUTION WIDTH 16.5 % (11.5-14.5); WHITE BLOOD COUNT 8.2 x10^3/uL (4.0-11.0)
[2019-11-01 19:43] LABS: BILIRUBIN,URINE NEGATIVE (NEG); CLARITY,URINE CLEAR; COLOR,URINE YELLOW; NITRITE,URINE NEGATIVE (NEG); PH,URINE 5.5; PROTEIN,URINE NEGATIVE (NEG-TRACE); UROBILINOGEN,URINE 0.2 mg/dL (0.2 mg/dL)
[2019-11-01 19:52] LABS: SQUAMOUS EPITHELIAL CELL,UR MANY /LPF
[2019-11-01 19:53] LABS: BACTERIA,URINE FEW /HPF (0-FEW); RBC,URINE OCC /HPF (0-2)
[2019-11-01 19:54] LABS: CREATININE 1.3 mg/dL (0.6-1.0); GFR 39.7; POTASSIUM 3.5 mmol/L (3.5-5.1)
[2019-11-01 19:54] LABS: HYALINE CASTS, URINE MODERATE /HPF; YEAST,URINE PRESENT /HPF
[2019-11-01 20:04] LABS: ALBUMIN 2.8 g/dL (3.4-5.0); ALBUMIN/GLOBULIN RATIO 0.9 (1.0-1.7); TOTAL BILIRUBIN 0.6 mg/dL (0.2-1.0); TOTAL PROTEIN 5.8 g/dL (6.4-8.2)
[2019-11-01 20:06] LABS: INFLUENZA A PATIENT NEGATIVE (NEGATIVE); INFLUENZA B PATIENT NEGATIVE (NEGATIVE)
[2019-11-01 20:17] LABS: % BASOS 3 % (0-3); % EOS 15 % (0-5); % LYMPHS 16 % (24-48); % MONOS 5 % (0-10); % SEGS 61 % (35-66)
[2019-11-01 20:18] LABS: PLT ESTIMATE ADEQUATE (ADEQUATE)
--- NOTE | 2019-11-01 20:57 | RAD ---
EXAM: AP View of the chest DATE: 11/01/2019 7:39 PM INDICATION: Shortness of breath COMPARISON: 10/09/2018 FINDINGS: The heart is not enlarged. Mediastinal and hilar contours are normal. No focal parenchymal airspace opacity. No pleural effusion or pneumothorax. Right chest port tip terminates within the proximal SVC. IMPRESSION: 1. No radiographic evidence for acute cardiopulmonary process. Electronically signed by: Nahid Burroughs MD (11/01/2019 8:54 PM) [id number]
[2019-11-01] MEDS ORDERED: IPRA4AER IH (21:13)
[2019-11-01] MEDS ORDERED: FUROSEMIDE 40 MG/4 ML VIAL. IVP ONE (21:15)
[2019-11-01 21:25] VITALS: BP 150/69
[2019-11-01] MEDS ORDERED: HEPARIN PF 500 UNIT/5 ML DISP.SYRIN. ONE (21:26)
[2019-11-01] MEDS ORDERED: HEPARIN PF 500 UNIT/5 ML DISP.SYRIN. IVP ONE (21:30)
--- NOTE | 2019-11-02 08:56 | EKG ---
[facility] [address] [place] [address] Test Date: 2019-11-01 Test Time: 19:15:00 Pat Name: CLEVELAND REAL Department: Room: Gender: F Tool Room Machinist: : 1940 Requested By: HERRERA ARTIS Order Number: [id number] Reading MD: Measurements Intervals Advance Rate: 89 P: UT: QRS: -22 QRSD: 78 T: 12 QT: 294 QTc: 358 Interpretive Statements ATRIAL FLUTTER LEFTWARD AXIS T ABNORMALITY IN ANTEROSEPTAL LEADS ABNORMAL ECG No previous ECG available for comparison
== END 2019-11-01 21:25 | disposition home or self-care (01) ==
LOC: ER 17:33
DX: R06.02 Shortness of breath (principal); R79.0 Abnormal level of blood mineral; R50.9 Fever, unspecified; R11.0 Nausea; I48.91 Unspecified atrial fibrillation; J44.9 Chronic obstructive pulmonary disease, unspecified; Z88.1 Allergy status to other antibiotic agents; Z88.8 Allergy status to other drugs, medicaments and biological substances
CPT/HCPCS: 36415; 71045; 80053; 81001; 83880; 84484; 85007; 85025; 87086; 87804; 93005; 94640; 96374; 96375; 99285; J1940; J7620